=== PATIENT | female | born 1935 | race Caucasian/White ===

== ENCOUNTER → 2016-05-28 | Outpatient (CLI) | payer OTHER ==
[~2016-05-28] MED LIST: ASPI81TA28 PO; ATOR-24 PO; CINN500T PO; LEVO75TA PO; OXYB5TAB PO; PANT40TA PO
--- NOTE | 2016-05-28 13:04 | MAMMOGRAPHY REPORT ---
BILATERAL DIGITAL DIAGNOSTIC MAMMOGRAM TOMOSYNTHESIS WITH CAD: 05/28/2016 CLINICAL HISTORY: History of left breast cancer status post lumpectomy 2015 and radiation therapy. The patient reports a "rash" on her left breast for the last 2 months, she denies any palpable lumps or other complaints. TECHNIQUE: Breast tomosynthesis in addition to standard 2D mammography was performed. Current study was also evaluated with a Computer Aided Detection (CAD) system. Bilateral CC and MLO 2-D and jovany synthesis images and spot magnification left CC and ML views were obtained. COMPARISON: Comparison is made to exams dated: 01/20/2016 breast MRI, 07/16/2015 MRI biopsy, 07/07/19 16 ultrasound, 06/24/2015 breast MRI, 05/28/2015 ultrasound, and 05/28/2015 mammogram - [facility]. BREAST COMPOSITION: The tissue of both breasts is heterogeneously dense, which may obscure small ma sses. FINDINGS: There are stable post surgical changes in the left 12:00 breast from prior lumpectomy, in cluding architectural distortion as well as a fat density mass at the lumpectomy bed consistent with fat necrosis. Spot magnification views of the lumpectomy bed demonstrate 2 coarse benign calcifica tions at the lumpectomy bed, without suspicious masses or clusters of calcifications seen. The remainder of both breasts are stable compared to prior exams, without suspicious masses, calcifi cations, or areas of architectural distortion noted. Limited clinical exam of the left breast demonstrates an erythematous "rash" involving the left vivienne st including the lumpectomy scar, which has the appearance of multiple small superficial vessels. I t was discussed with the patient that it could potentially be related to radiation therapy, although I defer to her clinician for evaluation of the rash. IMPRESSION: ACR BI-RADS CATEGORY 2: BENIGN Stable post surgical changes in the left breast status post lumpectomy, without mammographic evidenc e of malignancy in either breast. There is no mammographic evidence of malignancy. Recommend bilat eral diagnostic tomosynthesis mammograms in one year. Also recommend clinical follow-up for the lef t breast "rash" reported by the patient. The patient has been verbally notified of the results. Approximately 10% of breast cancers are not detected with mammography. A negative mammographic repor t should not delay biopsy if a clinically suggestive mass is present. Madalyn Barragan M.D. ah/:05/28/2016 10:50:02 Research Laboratory Technician: Virgie Trujillo, [facility] letter sent: Normal 1/2 BI-RADS Code: ACR BI-RADS Category 2: Benign
== END | disposition home or self-care (01) ==
LOC: C.MAMM 10:14
PROVIDERS: ATTEND Surgery
DX: Z12.31 Encounter for screening mammogram for malignant neoplasm of breast (principal); Z85.3 Personal history of malignant neoplasm of breast

== ENCOUNTER → 2016-09-02 | Outpatient (CLI) | payer OTHER ==
[~2016-09-02] MED LIST changes: -CINN500T PO; -PANT40TA PO
--- NOTE | 2016-09-02 08:13 | DIAGNOSTIC IMAGING REPORT ---
(BARIUM SWALLOW) ESOPHAGUS CLINICAL HISTORY: Dysphasia. COMPARISON STUDY: 2007 FLUOROSCOPY TIME: 1.5 minutes. 26 fluoroscopic spot images were acquired.. FINDINGS: The patient swallowed effervescent granules and barium. There is no aspiration. There is a small sacral diverticulum. There is mildly disordered esophageal motility. There is a small hiatal hernia with distal esophageal ring. Reflux is visualized. The patient swallowed a one half inch barium tablet which freely passed the stomach. No destructive esophageal lesions were visualized. IMPRESSION: 1. Small Zenker's diverticulum 2. Small sliding hiatal hernia with distal esophageal ring 3. Disordered esophageal motility 4. Reflux 5. A 1/2 inch barium tablet freely passed into the stomach Electronically signed by: Loi Gonzalez M.D. 09/02/2016 8:11 AM Dictated Date/Time: 09/02/2016 8:10 AM
== END | disposition home or self-care (01) ==
LOC: C.RAD 07:18
PROVIDERS: ATTEND Physician Assistant
DX: K22.2 Esophageal obstruction (principal); R13.19 Other dysphagia; K44.9 Diaphragmatic hernia without obstruction or gangrene; K22.5 Diverticulum of esophagus, acquired

== ENCOUNTER → 2016-10-05 | Outpatient (CLI) | payer OTHER ==
[2015-10-07 13:49] VITALS: BP 130/71; PULSE 54
[~2016-10-05] MED LIST changes: -ATOR-24 PO; +CINN500T PO; +PANT40TA PO
[2016-10-05 13:46] VITALS: BP 146/77; PULSE 60; TEMP 36.8; O2SAT 95
--- NOTE | 2016-10-05 18:28 | Radiation Oncology Follow-Up ---
Radiation Oncology Follow-Up Date of Visit Oct 05, 2016. Reason For Visit Annual follow-up Radiation Completion Date 09/03/14 Diagnosis (1) Breast cancer Status: Resolved Onset Date: 04/18/2014 Stage: ll Permanent Comment: Self detected left breast mass Abnormal left breast mammogram and ultrasound 04/17/2014 Status post ultrasound-guided biopsy 04/18/2014 revealing invasive carcinoma Estrogen receptor negative, progesterone receptor negative, HER-2/rola negative Status post lumpectomy and sentinel lymph node biopsy 05/22/2014 Pathologic stage [id number] Status post completion of radiation therapy 09/03/2014 received 6120 cGy Last Edited By: Nicolette Whalen on Sep 19, 2014 10:44 History of Present Illness Ms. Pena is a 79-year-old female without a family history of breast cancer. She noted the presence of a left breast lump and was scheduled for bilateral mammograms and ultrasound. These were performed on 04/17/2014. These were compared to a prior study from October 2009. A dense mass with obscured margins was noted in the left breast at the 12:00 anterior position. Further evaluation with ultrasound was performed. Throughout the remainder of the visualized left breast were possible additional obscured masses in the upper outer quadrant. No abnormalities are noted in the right breast. An ultrasonic evaluation of the area of palpable concern at the 11:30 position of the left breast 2 cm from the nipple revealed a hypoechoic solid vascular mass measuring 1.2 x 1.0 x 1.9 cm. This correlates with the dense mammographic mass. In addition at the 12 o'clock position 2 cm from the nipple is a second hypoechoic solid-appearing mass with ill-defined borders measuring 1.0 x 0.7 cm. Within the axilla, 2 lymph nodes are seen measuring 0.7 cm without suspicious findings. This was felt to be highly suggestive of malignancy and a biopsy was recommended. On 04/18/2014 patient underwent an ultrasound-guided core biopsy the left breast at the 11 o'clock position. 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 No lymphovascular or perineural invasion was identified. Estrogen receptors were negative. Progesterone receptors were negative. HER-2/rola was negative by FISH analysis. Case: [id number]. Patient was seen by Dr. Marnie Skinner for surgical evaluation. Treatment options were discussed with the patient and she agreed to proceed with a breast conserving technique. The left breast examination revealed a 1.5 cm firm non-fixed irregular mass located at the 11:30 position 2 cm in the nipple. The second area of suspicion that was not biopsied was also not palpable. Patient underwent bilateral breast MRIs on 05/08/2014. In the right breast there was a 5 mm focus of faint enhancement in the right upper outer quadrant at the 9:30 middle depth. This focus demonstrated no suspicious kinetics. The remainder of the right breast demonstrates no suspicious masses or areas of abnormal enhancement. In the left breast a heterogeneously enhancing irregular mass was noted in the left upper inner quadrant at approximately 11:00, anterior depth at the site of the palpable mass marker. This measured 1.8 x 1.3 x 1.9 cm. The mass is consistent with the biopsy-proven malignancy. A small 4 mm enhancing focus is seen immediately superior and posterior to the dominant mass which may represent a tiny satellite lesion. The total extent of the abnormal enhancement measures 2.5 cm. There was no evidence of axillary adenopathy. The chest wall structures were negative. Extramammary soft tissues were unremarkable. After discussion with Dr. Skinner it was decided to do a 6 month follow-up of the right breast focus rather than an immediate biopsy. An MRI of the brain was performed on 2014 following the complaint of facial numbness. This showed no evidence of acute or subacute infarction, no evidence of intracranial masses and no evidence of hydrocephalus. Patient therefore went on to have a left breast lumpectomy and sentinel node biopsy on 05/22/2014.. 2 sentinel nodes were identified and both were benign. The lumpectomy specimen confirmed an infiltrating carcinoma grade 3 of 3 measuring 2.5 x 2.3 x 1.3 cm. The margins of the excision were negative with the closest margin 1 cm represented by the deep margin. 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 The margins on the DCIS was also negative. The staging was therefore a pT2 pN0(i-) ER negative CT negative HER-2/rola negative. Patient was seen by Dr. Crawford for discussion of the role of adjuvant therapy. He has ordered a staging workup that included a CT scan of the chest, abdomen and pelvis. These were performed on June 19 and results are pending. Once these results have been recorded he will review with the patient the potential role of adjuvant systemic therapy. While awaiting these results we were asked to see the patient in referral to discuss with her the potential role of radiation as adjuvant therapy. Adjuvant treatment was discussed with her. It was felt that she should have whole breast therapy. The patient was in agreement with undergoing therapy. Radiation was completed 09/03/2014 she received 6120 cGy Interim History She has noticed over the past several months changes to the skin of her left breast. The changes worse first detected in March 2016. She has noticed that there are red lines on the breast. These seem to have increased in the upper inner portion of the breast in the inframammary fold. There is no pain associated. She has no itching. She asked the radiologist, pattern marking supervisor, and family physician their opinion on the changes of her skin. She stated that they were not certain but it was likely it was due to her radiation therapy. She wondered if the changes had occurred because she was treated in the prone position. She is up-to-date on mammography. Allergies Coded Allergies: Honeydew Ariadne (Unverified Allergy, Severe, SHORTNESS OF BREATH, 09/30/16) will cause her to lose her voice Prednisone (Verified Allergy, Mild, RAISES BLOOD SUGAR AND CAUSES BLURRY VISION, 09/30/16) Uncoded Allergies: CHIPOTLE (Allergy, Unknown, SOB AND LOSES VOICE, 09/30/16) Home Medications Scheduled Aspirin (Aspirin Ec), 81 MG PO QAM Cinnamon (Cinnamon), 1 TAB PO QAM Levothyroxine Sodium (Synthroid), 75 MCG PO QAM Oxybutynin Chloride (Oxybutynin Chloride Er), 1 TAB PO QAM Pantoprazole (Protonix), 40 MG PO QAM Review of Systems Gastrointestinal: Symptoms: WNL GI Comments: Acid Reflux, diverticulitis showed on barium swallow Oral: Symptoms: No Problems Other Oral Symptoms: Trouble swallowing in general - having throat stretched Respiratory: Symptoms: WNL Other Respiratory: Coughs at times with the reflux Urinary: Symptoms: WNL Comments: nocturia times 2 Skin: Symptoms: No Problems Other Skin Symptoms: possible telangiectasis that developed in feb 2016 - dark small veins Breast: Right Upper Arm Measurement: 32.7 Right Mid Arm Measurement: 26.6 Right Wrist Measurement: 16.2 Left Upper Arm Measurement: 32.5 Left Mid Arm Measurement: 25.0 Left Wrist Measurement: 15.3 Arm Dominence: Right Patient Cosmetic Evaluation: Excellent Staff Cosmetic Evalaluation: Excellent Physical Exam Vital Signs Date Time Temp Pulse Resp B/P (MAP) Pulse Ox O2 Delivery O2 Flow Rate FiO2 10/05/16 13:46 36.8 60 16 146/77 95 Pain: Side: Bilateral Patient Pain Scale: 0 - 10 Initial Pain Intensity: 0.0 Fatigue: None General Appearance: no apparent distress Eyes: normal inspection, EOMI ENT: normal ENT inspection, hearing grossly normal Neck: no adenopathy, thyroid normal Respiratory/Chest: lungs clear, no respiratory distress, no accessory muscle use Breast: Breast examination reveals well-healed incisions of the left breast. She has the presence of telangiectasia. This is diffusely over the entire breast but is more prominent in the upper inner portion and in the inframammary fold. There are no masses or tenderness and no axillary adenopathy. She has no skin retractions or nipple changes. Using the Benjamin score cosmesis she has a fair outcome due to the telangiectasia. The right breast showed no masses or tenderness and no axillary adenopathy. Cardiovascular: regular rate, rhythm, no gallop, no murmur Extremities: no pedal edema Neurologic/Psychiatric: no motor/sensory deficits, alert, normal mood/affect Skin: warm/dry Additional Studies Patient: Lupe PENA [facility] Rec: [id number] Address1: [address] [place] [address] Address2: [facility] ID: [id number] Date: 1935 Sex: F Ref Phy: Nicolette Whalen PA-C Att Phy: Marnie Skinner MD Vandana Phy: Shen Rider M.D. Inter Phy: Madalyn Barragan MD [facility] Zip: [place] [address] SC: [facility] Report #: [id number] Vamp Creaser: INGA Diagnosis: ASYMPTOMATIC, HX OF BREAST CA Service Date: 05/28/16 MNE: [id number] Ordering Dr: Marnie Skinner MD CC: Marnie Skinner MD CONF: DICTATED BY: Madalyn Barragan MD MAMMOGRAPHY REPORT BILATERAL DIGITAL DIAGNOSTIC MAMMOGRAM TOMOSYNTHESIS WITH CAD: 05/28/2016 CLINICAL HISTORY: History of left breast cancer status post lumpectomy 2015 and radiation therapy. The patient reports a "rash" on her left breast for the last 2 months, she denies any palpable lumps or other complaints. TECHNIQUE: Breast tomosynthesis in addition to standard 2D mammography was performed. Current study was also evaluated with a Computer Aided Detection (CAD ) system. Bilateral CC and MLO 2-D and tomosynthesis images and spot magnification left CC and ML views were obtained. COMPARISON: Comparison is made to exams dated: 01/20/2016 breast MRI, 2015 MRI biopsy, 07/07/2015 ultrasound, 06/24/2015 breast MRI, 05/28/2015 ultrasound , and 05/28/2015 mammogram - [facility]. BREAST COMPOSITION: The tissue of both breasts is heterogeneously dense, which may obscure small masses. FINDINGS: There are stable post surgical changes in the left 12:00 breast from prior lumpectomy, including architectural distortion as well as a fat density mass at the lumpectomy bed consistent with fat necrosis. Spot magnification views of the lumpectomy bed demonstrate 2 coarse benign calcifications at the lumpectomy bed, without suspicious masses or clusters of calcifications seen. The remainder of both breasts are stable compared to prior exams, without suspicious masses, calcifications, or areas of architectural distortion noted. Limited clinical exam of the left breast demonstrates an erythematous "rash" involving the left breast including the lumpectomy scar, which has the appearance of multiple small superficial vessels. It was discussed with the patient that it could potentially be related to radiation therapy, although I defer to her clinician for evaluation of the rash. IMPRESSION: ACR BI-RADS CATEGORY 2: BENIGN Stable post surgical changes in the left breast status post lumpectomy, without mammographic evidence of malignancy in either breast. There is no mammographic evidence of malignancy. Recommend bilateral diagnostic tomosynthesis mammograms in one year. Also recommend clinical follow-up for the left breast "rash" reported by the patient. The patient has been verbally notified of the results. Approximately 10% of breast cancers are not detected with mammography. A negative mammographic report should not delay biopsy if a clinically suggestive mass is present. Madalyn Barragan M.D. ah/:05/28/2016 10:50:02 Temporary Administrative Assistant: Virgie Trujillo, [facility] letter sent: Normal 1/2 BI-RADS Code: ACR BI-RADS Category 2: Benign Dictated by: Madalyn Barragan MD Signed by: Madalyn Barragan MD Assessment & Plan Plan: Continue with annual mammography. We discussed the telangiectasia. I reviewed with her that this was caused by the radiation. This does usually occur 1-2 years following treatment. We reviewed photographs of other cases of telangiectasia. She felt comfortable knowing that this was not a sign of recurrent disease or underlying disease of the breast. She was made aware that there is no particular treatment for this issue. She is not concerned about this from a cosmetic standpoint. She'll continue follow-up with Dr. Skinner, Dr. Crawford, and Dr. Rider. We asked her to return to our office in 1 year. She may call if she has any questions or concerns in the interim. Total Time In Follow-Up I spent 25 minutes speaking to the patient performing examination. I spent 15 minutes reviewing information and complaining this note. Copy To Aubrey Linda M.D. Problem Qualifiers (1) Breast cancer: Breast location: upper inner quadrant of breast Estrogen receptor status: negative Patient sex: female Laterality: left Qualified Codes: C50.212 - Malignant neoplasm of upper-inner quadrant of left female breast; Z17.1 - Estrogen receptor negative status [ER-]
== END | disposition home or self-care (01) ==
LOC: C.ONC 13:35
PROVIDERS: ATTEND Physician Assistant Medical
DX: Z08 Encounter for follow-up examination after completed treatment for malignant neoplasm (principal); Z92.3 Personal history of irradiation; Z85.3 Personal history of malignant neoplasm of breast

== ENCOUNTER → 2016-10-11 | Day surgery (SDC) | payer OTHER ==
[2016-09-30 08:38] VITALS: BMI 29.0
[~2016-10-11] VITALS: Ht 154.9 cm; Wt 71.4 kg
[~2016-10-11] MED LIST changes: +LIDOCAINE HCL 2% 2 ML VIAL (20MG/ML) ONE; +PROPOFOL IV EMULSION 10 MG/ML 20 ML VIAL IV ONE; +SODIUM CHLORIDE 0.9% 500ML 500 ML IV ONE
--- NOTE | 2016-10-11 14:11 | Endo History and Physical ---
History & Physical Date of Service: Oct 11, 2016. Chief Complaint: Abnormal barium swallow GERD Referring Physician: Dr. Rider History of Present Illness 81 yo CF who presents for EGD secondary to abnormal barium swallow and GERD. Past Medical History Diabetes, Reflux, Cancer, High Cholesterol, Hypertension, Thyroid Disease Past Surgical History Hx Cardiac Surgery: No Hx Internal Defibrillator: No Hx Pacemaker: No Hx Abdominal Surgery: No Hx of Implantable Prosthesis: No Hx Post-Op Nausea and Vomiting: No Hx Cancer Surgery: Yes (LT BREAST LUMPECTOMY) Hx Thoracic Surgery: No Hx Orthopedic: No Hx Urinary Tract Surgery: No Family History None Social History Smoking Status: Never Smoker Hx Substance Use: No Hx Alcohol Use: No Allergies Coded Allergies: Honeydew Ariadne (Unverified Allergy, Severe, SHORTNESS OF BREATH, 09/30/16) will cause her to lose her voice Prednisone (Verified Allergy, Mild, RAISES BLOOD SUGAR AND CAUSES BLURRY VISION, 09/30/16) Uncoded Allergies: CHIPOTLE (Allergy, Unknown, SOB AND LOSES VOICE, 09/30/16) Current Medications Reported Home Medications Medications Dose Route/Sig Max Daily Dose Days Date Category Cinnamon 500 Mg Tab 1 Tab PO QAM 09/30/16 Reported Aspirin Ec (Aspirin) 81 Mg Tab 81 Mg PO QAM 09/30/16 Reported Protonix (Pantoprazole Sodium) 40 Mg Tab 40 Mg PO QAM 09/30/16 Reported Synthroid (Levothyroxine Sodium) 75 Mcg Tab 75 Mcg PO QAM 06/25/14 Reported Oxybutynin Chloride Er (Oxybutynin Chloride) 5 Mg Tab 1 Tab PO QAM 06/25/14 Reported Vital Signs Weight (Kilograms): 71.36 Height (Feet): 5 Height (Inches): 1.5 Physical Exam General Appearance: WD/WN, no apparent distress Respiratory/Chest: Auscultation: breath sounds normal Cardiovascular: Heart Auscultation: RRR Abdomen: Bowel Sounds: normal Inspection & Palpation: soft, non-distended, no tenderness, guarding & rebound Assessment and Plan Assessment: 81 yo CF who presents for EGD secondary to abnormal barium swallow and GERD. Plan: Proceed with EGD.
[2016-10-11 14:12] VITALS: Ht 154.9 cm; Wt 71.4 kg
--- NOTE | 2016-10-11 15:59 | Discharge Instructions ---
Endoscopy Patient Instructions Date / Procedure(s) Performed Oct 11, 2016. EGD Allergy Information Coded Allergies: Honeydew Ariadne (Unverified Allergy, Severe, SHORTNESS OF BREATH, 10/11/16) will cause her to lose her voice Prednisone (Verified Allergy, Mild, RAISES BLOOD SUGAR AND CAUSES BLURRY VISION, 10/11/16) Uncoded Allergies: CHIPOTLE (Allergy, Unknown, SOB AND LOSES VOICE, 09/30/16) Discharge Date / Findings Oct 11, 2016. Schatzki's Ring s/p dilation to 20mm Hiatal hernia Medication Instructions OK to resume all medications today as prescribed Reported Home Medications Medications Dose Route/Sig Max Daily Dose Days Date Category Cinnamon 500 Mg Tab 1 Tab PO QAM 09/30/16 Reported Aspirin Ec (Aspirin) 81 Mg Tab 81 Mg PO QAM 09/30/16 Reported Protonix (Pantoprazole Sodium) 40 Mg Tab 40 Mg PO QAM 09/30/16 Reported Synthroid (Levothyroxine Sodium) 75 Mcg Tab 75 Mcg PO QAM 06/25/14 Reported Oxybutynin Chloride Er (Oxybutynin Chloride) 5 Mg Tab 1 Tab PO QAM 06/25/14 Reported Provider Instructions Activity Restrictions - No exercising or heavy lifting for 24 hours. - Do not drink alcohol the day of the procedure. - Do not drive a car or operate machinery until the day after the procedure. - Do not make any important decisions or sign important papers in 24 hours after the procedure. Following Day: - Return to full activity which may include returning to work/school. Diet Start your diet with liquids and light foods (jello, soup, juice, toast). Then eat your usual diet if not nauseated. Treatment For Common After Affects For mild abdominal pain, bloating, or excessive gas: - Rest - Eat lightly - Lie on right side Follow-Up Information Follow-up with Dr. Rider as scheduled Anesthesia Information What You Should Know You have had a procedure that required some medicine to reduce anxiety and discomfort. This treatment is called moderate sedation. After receiving the treatment, you may be sleepy, but you will be able to breathe on your own. The effects of the treatment may last for several hours. Follow these instructions along with Activity/Diet recommendations noted above: * Do NOT do anything where dizziness or clumsiness would be dangerous. * Rest quietly at home today, then you can be up and about tomorrow. * Have a responsible person stay with you the rest of today. * You may have had an I.V. today. If so, you may take the dressing off later today. Recommendations Call your doctor if: * Trouble breathing * Continuous vomiting for more than 24 hours * Temperature above 101 degrees * Severe abdominal pain or bloating * Pain not relieved by pain medicine ordered * There is increased drainage or redness from any incision * A large amount of rectal bleeding greater than 2-3 tablespoons. (If you had a polyp/s removed or have hemorrhoids, a small amount of blood - from the rectum is to be expected.) * You have any unanswered questions or concerns. IN THE EVENT OF A SERIOUS EMERGENCY, GO TO THE NEAREST EMERGENCY ROOM Your discharge instructions were prepared by provider Montez De León. Patient Instructions Signature Page Lupe Pat Patient (or Guardian) Signature/Date: I have read and understand the instructions given to me by my caregivers. Caregiver/RN/Doctor Signature/Date: The above-named patient and/or guardian has received patient instructions on this date. + Original Patient Signature Page (only) stays with chart. Please make copy for patient.
--- NOTE | 2016-10-11 16:03 | Anesthesiology Progress Note ---
Anesthesia Post Op Note Date & Time Oct 11, 2016 at 16:03 Vital Signs Pain Intensity: 0 Vital Signs Past 12 Hours Date Time Temp Pulse Resp B/P (MAP) Pulse Ox O2 Delivery O2 Flow Rate FiO2 10/11/16 15:57 36.1 67 16 147/71 (96) 95 Room Air 10/11/16 14:06 36.5 64 16 212/99 (136) 97 Room Air Notes Mental Status: alert / awake / arousable, participated in evaluation Pt Amnestic to Procedure: Yes Nausea / Vomiting: adequately controlled Pain: adequately controlled Airway Patency, RR, SpO2: stable & adequate BP & HR: stable & adequate Hydration State: stable & adequate Anesthetic Complications: no major complications apparent
[2016-10-11 16:30] VITALS: BP 191/93; PULSE 58; O2SAT 97
--- NOTE | 2016-10-12 00:15 | GI REPORT ---
Procedure Date: 10/11/2016 3:41 PM Procedure: Upper GI endoscopy Indications: Dysphagia Medicines: Monitored Anesthesia Care Complications: No immediate complications. Estimated Blood Loss: Estimated blood loss: none. Procedure: Pre-Anesthesia Assessment: - Prior to the procedure, a History and Physical was performed, and patient medications and allergies were reviewed. The patient's tolerance of previous anesthesia was also reviewed. The risks and benefits of the procedure and the sedation options and risks were discussed with the patient. All questions were answered, and informed consent was obtained. Prior Anticoagulants: The patient has taken no previous anticoagulant or antiplatelet agents. ASA Grade Assessment: III - A patient with severe systemic disease. After reviewing the risks and benefits, the patient was deemed in satisfactory condition to undergo the procedure. After obtaining informed consent, the endoscope was passed under direct vision. Throughout the procedure, the patient's blood pressure, pulse, and oxygen saturations were monitored continuously. The scope was introduced through the mouth, and advanced to the second part of duodenum. The upper GI endoscopy was accomplished without difficulty. The patient tolerated the procedure well. Findings: A moderate Schatzki ring (acquired) was found at the gastroesophageal junction. A TTS dilator was passed through the scope. Dilation with an 18-19-20 mm balloon (to a maximum balloon size of 20 mm) dilator was performed. The dilation site was examined and showed moderate improvement in luminal narrowing. A small hiatus hernia was present. The examined duodenum was normal. Impression: - Moderate Schatzki ring. Dilated. - Small hiatus hernia. - Normal examined duodenum. - No specimens collected. Recommendation: - Resume previous diet. - Continue present medications. - Repeat the upper endoscopy PRN for retreatment. - Return to primary care physician as previously scheduled. Montez De León DO 10/11/2016 4:39:08 PM This report has been signed electronically. Note Initiated On: 10/11/2016 3:41 PM I attest to the content of the Intraoperative Record and orders documented therein, exceptions below
== END | disposition home or self-care (01) ==
LOC: C.GI 13:43
PROVIDERS: ATTEND Internal Medicine
DX: K22.2 Esophageal obstruction (principal); K21.9 Gastro-esophageal reflux disease without esophagitis; K44.9 Diaphragmatic hernia without obstruction or gangrene; I10 Essential (primary) hypertension; E11.9 Type 2 diabetes mellitus without complications; E78.00 Pure hypercholesterolemia, unspecified; E07.9 Disorder of thyroid, unspecified; Z79.82 Long term (current) use of aspirin

== ENCOUNTER → 2016-11-10 | Outpatient (CLI) | payer OTHER ==
[~2016-11-10] MED LIST changes: -LIDOCAINE HCL 2% 2 ML VIAL (20MG/ML) ONE; -PROPOFOL IV EMULSION 10 MG/ML 20 ML VIAL IV ONE; -SODIUM CHLORIDE 0.9% 500ML 500 ML IV ONE
--- NOTE | 2016-11-10 08:42 | DIAGNOSTIC IMAGING REPORT ---
(BARIUM SWALLOW) ESOPHAGUS CLINICAL HISTORY: 81 years-old Female presenting with dysphagia. TECHNIQUE: A standard air contrast barium esophagram is performed. Multiple spot images of the esophagus are acquired both upright and prone. COMPARISON: 09/02/2016. FINDINGS: The patient was able to ingest barium, and the barium pill without difficulty. No aspiration observed. A diverticulum noted in the region of the cervical esophagus at the level of C5-6 which projects posteriorly and superiorly, consistent with a Zenker's diverticulum. This is unchanged from prior. Evidence of tertiary contractions, suggesting dysmotility. No fixed obstruction or intrinsic or extrinsic mass lesion. Gastric folds project above the diaphragmatic hiatus consistent with small hiatal hernia. The gastroesophageal junction distended normally. Gastroesophageal reflux observed. Fluoroscopy dosage (mGy): Not available. Fluoroscopy time: 1.3 minutes. Number of fluoroscopic spot images: 23. IMPRESSION: 1. Unchanged findings of Zenker's diverticulum, small hiatal hernia, and reflux. 2. Tertiary contractions suggest dysmotility, likely presbyesophagus. Electronically signed by: Parveen Reddy M.D. 11/10/2016 8:40 AM Dictated Date/Time: 11/10/2016 8:36 AM
== END | disposition home or self-care (01) ==
LOC: C.RAD 08:12
PROVIDERS: ATTEND Physician Assistant
DX: R13.10 Dysphagia, unspecified (principal)

== ENCOUNTER → 2017-02-04 | Outpatient (CLI) | payer OTHER ==
[~2017-02-04] MED LIST changes: +GADAVIST IV PRN
--- NOTE | 2017-02-07 07:59 | MAMMOGRAPHY REPORT ---
BREAST MRI OF BOTH BREASTS : 02/04/2017 CLINICAL HISTORY: History of left breast cancer status post lumpectomy 2014 and radiation therapy. 1 2 month follow-up breast MRI for bilateral enhancing foci. The patient reports no current complaints . COMPARISON: Comparison is made to exams dated: 01/20/2016 breast MRI, 07/16/2015 MRI biopsy, 6 ultrasound, 06/24/2015 breast MRI, 05/28/2015 ultrasound, and 05/28/2015 mammogram - [facility]. Technique: The patient was placed prone in a dedicated breast imaging coil. Precontrast axial T1-jodee ghted, axial T2-weighted fat saturation, and axial T1-weighted fat saturation images were obtained. After the administration of 6.5 mL of Gadavist IV contrast, sequential T1-weighted fat saturation lulu ges were obtained. Subtraction images were obtained of the dynamic contrast enhanced sequences, and 3-D reformations were performed. The Chroma software was used for kinetic analysis. Findings: Right breast: There is minimal background parenchymal enhancement. No suspicious enhancing masses or areas of abnor mal non-mass enhancement are seen within the right breast. The small 4 mm enhancing focus within the right breast is stable dating back to the April 2014 exam and is considered benign given the morphol ogy and long-term stability (series 501 image 78). Left breast: There is minimal background parenchymal enhancement. Again noted are postsurgical frederick es in the left superior breast from prior lumpectomy. There are no suspicious enhancing masses or ar eas of abnormal enhancement within the left breast. The small 3 mm enhancing focus in the left centr al breast middle depth is stable dating back to at least the December 2014 exam, and demonstrates a b enign type persistent kinetic pattern (series 501 image 81); the focus is considered benign given the morphology and long-term stability. A circumscribed benign-appearing 6 mm T2 hyperintense enhancing mass is seen within the skin of the left lower outer breast, not significantly changed compared to M 2014 exam and is therefore benign and likely represents an epidermal inclusion/sebaceous cyst (s eries 501 image 106). There is no evidence of axillary adenopathy. The chest wall structures are negative. Extramammary s oft tissues are unremarkable. IMPRESSION: ACR BI-RADS CATEGORY 2: BENIGN No MRI evidence of malignancy in either breast. Bilateral enhancing foci are stable compared to prio r exams, and are considered benign given the benign morphology and long-term stability. Recommend bi lateral diagnostic tomosynthesis mammograms May 2017, as recommended on the prior diagnostic mammog madie report. Madalyn Barragan M.D. ah/:02/05/2017 15:24:15 Security Associate: ground equipment mechanic, [facility] letter sent: Normal 1/2 BI-RADS Code: ACR BI-RADS Category 2: Benign
== END | disposition home or self-care (01) ==
LOC: C.MRI 06:28
PROVIDERS: ATTEND Surgery
DX: R92.8 Other abnormal and inconclusive findings on diagnostic imaging of breast (principal); Z85.3 Personal history of malignant neoplasm of breast

== ENCOUNTER → 2017-05-31 | Outpatient (CLI) | payer OTHER ==
[~2017-05-31] MED LIST changes: -GADAVIST IV PRN
--- NOTE | 2017-05-31 12:52 | MAMMOGRAPHY REPORT ---
BILATERAL DIGITAL DIAGNOSTIC MAMMOGRAM TOMOSYNTHESIS WITH CAD: 05/31/2017 CLINICAL HISTORY: 82-year-old woman presents for annual evaluation of both breasts. She has a person al history of left breast cancer status post lumpectomy and radiation therapy, performed in 2014. TECHNIQUE: Bilateral breast tomosynthesis in addition to standard 2D mammography was performed. Curre nt study was also evaluated with a Computer Aided Detection (CAD) system. COMPARISON: Comparison is made to exams dated: 02/04/2017 breast MRI, 05/28/2016 mammogram, 01/20/2016 breast MRI, 07/16/2015 MRI biopsy, 07/07/2015 ultrasound, and 06/24/2015 breast MRI - [facility]. BREAST COMPOSITION: The tissue of both breasts is heterogeneously dense, which may obscure small mas ses. FINDINGS: A linear scar marker overlies the 12:00 to 1:00 left breast, denoting the skin surgical sca r from prior lumpectomy. There is expected architectural distortion in the 12:00 to 1:00 middle one third of the left breast from the prior surgery. No obvious new masses, asymmetries or unexpected di stortion is identified. There are scattered benign-appearing microcalcifications. Moderate vascular calcification in the breasts. No suspicious mass, architectural distortion or cluster of suspicious microcalcifications is seen. IMPRESSION: ACR BI-RADS CATEGORY 2: BENIGN Stable bilateral mammograms, without mammographic evidence of malignancy. Recommend bilateral screen ing mammography in 1 year and would recommend remaining a diagnostic patient given the dense breasts and personal history of left breast cancer, in case any additional mammographic views and/or ultrasou nd would be needed. Also consider additional annual screening with breast MRI. Approximately 10% of breast cancers are not detected with mammography. A negative mammographic report should not delay biopsy if a clinically suggestive mass is present. Silva Rubio M.D. ay/:05/31/2017 12:16:49 Pleating Machine Operator: Virgie Trujillo, [facility] letter sent: Normal 1/2 BI-RADS Code: ACR BI-RADS Category 2: Benign
== END | disposition home or self-care (01) ==
LOC: C.MAMM 08:45
PROVIDERS: ATTEND Physician Assistant Medical
DX: Z85.3 Personal history of malignant neoplasm of breast (principal)

== ENCOUNTER → 2017-10-06 | Outpatient (CLI) | payer OTHER ==
[2015-10-07 13:49] VITALS: BP 130/71; PULSE 54
[~2017-10-06] MED LIST changes: +ATOR-24 PO; +[UNRECOGNIZED DRUG - CODE] PO
[2017-10-06 13:15] VITALS: BP 127/70; PULSE 62; TEMP 36.7; O2SAT 97
--- NOTE | 2017-10-06 14:16 | Radiation Oncology Follow-Up ---
Radiation Oncology Follow-Up Date of Visit Oct 06, 2017. Reason For Visit Annual follow-up Radiation Completion Date 09/03/14 Diagnosis (1) Breast cancer Status: Resolved Onset Date: 04/18/2014 Stage: ll Permanent Comment: Self detected left breast mass Abnormal left breast mammogram and ultrasound 04/17/2014 Status post ultrasound-guided biopsy 04/18/2014 revealing invasive carcinoma Estrogen receptor negative, progesterone receptor negative, HER-2/rola negative Status post lumpectomy and sentinel lymph node biopsy 05/22/2014 Pathologic stage [id number] Status post completion of radiation therapy 09/03/2014 received 6120 cGy Last Edited By: Nicolette Whalen on Sep 19, 2014 10:44 History of Present Illness Ms. Pena is without a family history of breast cancer. She noted the presence of a left breast lump and was scheduled for bilateral mammograms and ultrasound. These were performed on 04/17/2014. These were compared to a prior study from October 2009. A dense mass with obscured margins was noted in the left breast at the 12:00 anterior position. Further evaluation with ultrasound was performed. Throughout the remainder of the visualized left breast were possible additional obscured masses in the upper outer quadrant. No abnormalities are noted in the right breast. An ultrasonic evaluation of the area of palpable concern at the 11:30 position of the left breast 2 cm from the nipple revealed a hypoechoic solid vascular mass measuring 1.2 x 1.0 x 1.9 cm. This correlates with the dense mammographic mass. In addition at the 12 o'clock position 2 cm from the nipple is a second hypoechoic solid-appearing mass with ill-defined borders measuring 1.0 x 0.7 cm. Within the axilla, 2 lymph nodes are seen measuring 0.7 cm without suspicious findings. This was felt to be highly suggestive of malignancy and a biopsy was recommended. On 04/18/2014 patient underwent an ultrasound-guided core biopsy the left breast at the 11 o'clock position. 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 No lymphovascular or perineural invasion was identified. Estrogen receptors were negative. Progesterone receptors were negative. HER-2/rola was negative by FISH analysis. Case: [id number]. Patient was seen by Dr. Marnie Skinner for surgical evaluation. Treatment options were discussed with the patient and she agreed to proceed with a breast conserving technique. The left breast examination revealed a 1.5 cm firm non-fixed irregular mass located at the 11:30 position 2 cm in the nipple. The second area of suspicion that was not biopsied was also not palpable. Patient underwent bilateral breast MRIs on 05/08/2014. In the right breast there was a 5 mm focus of faint enhancement in the right upper outer quadrant at the 9:30 middle depth. This focus demonstrated no suspicious kinetics. The remainder of the right breast demonstrates no suspicious masses or areas of abnormal enhancement. In the left breast a heterogeneously enhancing irregular mass was noted in the left upper inner quadrant at approximately 11:00, anterior depth at the site of the palpable mass marker. This measured 1.8 x 1.3 x 1.9 cm. The mass is consistent with the biopsy-proven malignancy. A small 4 mm enhancing focus is seen immediately superior and posterior to the dominant mass which may represent a tiny satellite lesion. The total extent of the abnormal enhancement measures 2.5 cm. There was no evidence of axillary adenopathy. The chest wall structures were negative. Extramammary soft tissues were unremarkable. After discussion with Dr. Skinner it was decided to do a 6 month follow-up of the right breast focus rather than an immediate biopsy. An MRI of the brain was performed on 2014 following the complaint of facial numbness. This showed no evidence of acute or subacute infarction, no evidence of intracranial masses and no evidence of hydrocephalus. Patient therefore went on to have a left breast lumpectomy and sentinel node biopsy on 05/22/2014.. 2 sentinel nodes were identified and both were benign. The lumpectomy specimen confirmed an infiltrating carcinoma grade 3 of 3 measuring 2.5 x 2.3 x 1.3 cm. The margins of the excision were negative with the closest margin 1 cm represented by the deep margin. 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 The margins on the DCIS was also negative. The staging was therefore a pT2 pN0(i-) ER negative DC negative HER-2/rola negative. Patient was seen by Dr. Crawford for discussion of the role of adjuvant therapy. He has ordered a staging workup that included a CT scan of the chest, abdomen and pelvis. These were performed on June 19 and results are pending. Once these results have been recorded he will review with the patient the potential role of adjuvant systemic therapy. While awaiting these results we were asked to see the patient in referral to discuss with her the potential role of radiation as adjuvant therapy. Adjuvant treatment was discussed with her. It was felt that she should have whole breast therapy. The patient was in agreement with undergoing therapy. Radiation was completed 09/03/2014 she received 6120 cGy Interim History She has been doing well over this past year. She denies any changes to her breast. She is noted no masses or tenderness and no change of the axilla. She has had no swelling of her arm. She is up-to-date on mammography. She does have post radiation changes of telangiectasia. She feels these are unchanged from last year. She is not cosmetically concerned about this outcome. She did have a recheck mammogram May 31, 2017. She discussed follow-up MRIs with medical oncology and her breast surgeon. She was not inclined to have annual MRIs. She is very comfortable with mammography only. Allergies Coded Allergies: Honeydew Ariadne (Unverified Allergy, Severe, SHORTNESS OF BREATH, 10/06/17) will cause her to lose her voice Prednisone (Verified Allergy, Mild, RAISES BLOOD SUGAR AND CAUSES BLURRY VISION, 10/06/17) Uncoded Allergies: CHIPOTLE (Allergy, Unknown, SOB AND LOSES VOICE, 09/30/16) Home Medications Scheduled Aspirin (Aspirin Ec), 81 MG PO QAM Atorvastatin (Lipitor), 1 TAB PO HS Cinnamon (Cinnamon), 1 TAB PO QAM Levothyroxine Sodium (Synthroid), 75 MCG PO QAM Metformin Hcl (Riomet), 1 TSP PO BID Oxybutynin Chloride (Oxybutynin Chloride Er), 1 TAB PO QAM Review of Systems Gastrointestinal: Symptoms: WNL GI Comments: Acid Reflux, diverticulitis showed on barium swallow Oral: Symptoms: No Problems Other Oral Symptoms: Trouble swallowing in general - having throat stretched Respiratory: Symptoms: WNL Other Respiratory: Coughs at times with the reflux Urinary: Symptoms: WNL Comments: nocturia times 2 Skin: Symptoms: No Problems Other Skin Symptoms: possible telangiectasis that developed in feb 2016 - dark small veins Breast: Right Upper Arm Measurement: 30.2 Right Mid Arm Measurement: 24.5 Right Wrist Measurement: 15.5 Left Upper Arm Measurement: 29.5 Left Mid Arm Measurement: 23.8 Left Wrist Measurement: 14.6 Arm Dominence: Right Patient Cosmetic Evaluation: Good Staff Cosmetic Evalaluation: Excellent Physical Exam Vital Signs Date Time Temp Pulse Resp B/P (MAP) Pulse Ox O2 Delivery O2 Flow Rate FiO2 10/06/17 13:15 36.7 62 16 127/70 97 Fatigue: None General Appearance: no apparent distress Eyes: normal inspection, EOMI ENT: normal ENT inspection, hearing grossly normal Neck: no adenopathy, thyroid normal Respiratory/Chest: lungs clear, no respiratory distress, no accessory muscle use Breast: She has well-healed incisions of the left breast. There are no masses or tenderness and no axillary adenopathy. She does have fibrous changes in the upper outer quadrant. There is generalized telangiectasia over the portal of treatment. Using the Dilworth score cosmesis she has a fair outcome. The right breast showed no masses or tenderness and no axillary adenopathy. She does have some fibrocystic changes in the central upper portion of the breast. Cardiovascular: regular rate, rhythm, no gallop, no murmur Extremities: no pedal edema Neurologic/Psychiatric: no motor/sensory deficits, alert, normal mood/affect Skin: warm/dry Pain Management Patient Reports Pain: No Side: Bilateral Pain Location: None Patient Preferred Pain Scale: 0 - 10 Initial Pain Intensity: 0.0 Pain Management Plan She denies pain therefore requires no pain management. Laboratory Laboratory Results: not applicable Pathology Pathology Results: were reviewed, and pertinent findings noted in HPI Imaging Imaging Studies: were reviewed, and pertinent findings noted below Imaging Comments Patient: Lupe PENA [facility] Rec: [id number] Address1: [address] [place] [address] Address2: [facility] ID: [id number] Date: 1935 Sex: F Ref Phy: Nicolette Whalen PA-C Att Phy: Nicolette Whalen PA-C Vandana Phy: Shen Rider M.D. Inter Phy: Silva Rubio MD [facility] Zip: [place] [id number] SC: [id number] Report #: [id number] Oral And Maxillofacial Surgery Resident: INGA Diagnosis: ASYMPTOMATIC/HX BREAST CA Service Date: 05/31/17 MNE: [id number] Ordering Dr: Nicolette Whalen PA-C CC: Nicolette Whalen PA-C CONF: DICTATED BY: Silva Rubio MD MAMMOGRAPHY REPORT BILATERAL DIGITAL DIAGNOSTIC MAMMOGRAM TOMOSYNTHESIS WITH CAD: 05/31/2017 CLINICAL HISTORY: 82-year-old woman presents for annual evaluation of both breasts. She has a personal history of left breast cancer status post lumpectomy and radiation therapy, performed in 2014. TECHNIQUE: Bilateral breast tomosynthesis in addition to standard 2D mammography was performed. Current study was also evaluated with a Computer Aided Detection (CAD) system. COMPARISON: Comparison is made to exams dated: 02/04/2017 breast MRI, 05/28/2016 mammogram, 01/20/2016 breast MRI, 07/16/2015 MRI biopsy, 07/07/2015 ultrasound, and 06/24/2015 breast MRI - [facility]. BREAST COMPOSITION: The tissue of both breasts is heterogeneously dense, which may obscure small masses. FINDINGS: A linear scar marker overlies the 12:00 to 1:00 left breast, denoting the skin surgical scar from prior lumpectomy. There is expected architectural distortion in the 12:00 to 1:00 middle one third of the left breast from the prior surgery. No obvious new masses, asymmetries or unexpected distortion is identified. There are scattered benign-appearing microcalcifications. Moderate vascular calcification in the breasts. No suspicious mass, architectural distortion or cluster of suspicious microcalcifications is seen. IMPRESSION: ACR BI-RADS CATEGORY 2: BENIGN Stable bilateral mammograms, without mammographic evidence of malignancy. Recommend bilateral screening mammography in 1 year and would recommend remaining a diagnostic patient given the dense breasts and personal history of left breast cancer, in case any additional mammographic views and/or ultrasound would be needed. Also consider additional annual screening with breast MRI. Approximately 10% of breast cancers are not detected with mammography. A negative mammographic report should not delay biopsy if a clinically suggestive mass is present. Silva Rubio M.D. ay/:05/31/2017 12:16:49 Cardiac/Vascular Sonographer: Virgie Trujillo, [facility] letter sent: Normal 1/2 BI-RADS Code: ACR BI-RADS Category 2: Benign Dictated by: Silva Rubio MD Signed by: Silva Rubio MD Assessment & Plan Plan: Continue regular follow-up with her primary care provider, medical oncologist, and breast surgeon. She is not concerned about the cosmetic outcome and telangiectasia. She is comfortable with mammography alone and not having annual MRIs. She also stated that the MRI was quite difficult and uncomfortable for her to complete. We asked her to return to our office in 1 year. She may call if she has any questions or concerns in the interim. Total Time In Follow-Up I spent 20 minutes speaking to the patient in performing examination. I spent 15 minutes reviewing information and completing this note. Copy To Marnie Skinner MD; Lydia Poole PA-C; Shen Rider M.D. Problem Qualifiers (1) Breast cancer: Breast location: lower inner quadrant of breast Estrogen receptor status: negative Patient sex: female Laterality: left Qualified Codes: C50.312 - Malignant neoplasm of lower-inner quadrant of left female breast; Z17.1 - Estrogen receptor negative status [ER-]
== END | disposition home or self-care (01) ==
LOC: C.ONC 12:41
PROVIDERS: ATTEND Physician Assistant Medical
DX: Z08 Encounter for follow-up examination after completed treatment for malignant neoplasm (principal); Z92.3 Personal history of irradiation; Z85.3 Personal history of malignant neoplasm of breast

== ENCOUNTER 2018-07-31 18:48 | Inpatient (IN) ==
[2018-07-31] MEDS ORDERED: SODIUM CHLORIDE 0.9% 1000ML 1,000 ML IV SCH (19:15)
[2018-07-31 19:19] LABS: Basophils # (auto) 0.03 K/uL (0-0.2); Basophils % (auto) 0.5 %; Eosinophils # (auto) 0.14 K/uL (0-0.5); Eosinophils % (auto) 2.1 %; Hematocrit (blood only) 32.4 % (37-47); Immature Granulocytes # (auto) 0.02 K/uL (0.00-0.02); Immature Granulocytes % (auto) 0.3 %; Lymphocytes # (auto) 2.83 K/uL (1.2-3.4); Lymphocytes % (auto) 43.3 %; Mean Corpuscular Volume 82.4 fL (80-100); Monocytes # (auto) 0.52 K/uL (0.11-0.59); Neutrophils % (auto) 45.8 %; Platelet Count 264 K/uL (130-400); RDW Coefficient of Variation 13.3 % (11.5-14.5); RDW Standard Deviation 40.7 fL (36.4-46.3); Red Blood Count 3.93 M/uL (4.2-5.4); White Blood Count 6.54 K/uL (4.8-10.8)
[2018-07-31 19:22] LABS: iSTAT Creatinine 0.8 mg/dl (0.6-1.3); iSTAT Hemoglobin 11.2 g/dl (12.0-16.0); iSTAT Ionized Calcium 1.18 mmol/l (1.12-1.32); iSTAT Potassium 4.4 mEq/L (3.3-5.0)
--- NOTE | 2018-07-31 19:28 | XRay Report ---
XR chest 1V portable HISTORY: 83 years-old Female stroke like symptoms acute strokelike symptoms COMPARISON: Chest radiograph 07/30/2018 TECHNIQUE: Portable AP view of the chest FINDINGS: Cardiac mediastinal and hilar silhouettes are within normal limits. Calcification of the thoracic arc h. Mild hyperinflation without pneumothorax, pleural effusion, focal airspace consolidation or overt pulmonary edema. Degenerative changes of the shoulders and spine. IMPRESSION: No acute process. The above report was generated using voice recognition software. It may contain grammatical, syntax o r spelling errors. Electronically signed by: Rommel Arango M.D. 07/31/2018 7:26 PM
[2018-07-31] MEDS ORDERED: OPTIRAY 320 125ml IV PRN (19:33)
[2018-07-31 19:39] LABS: Alanine Aminotransferase 26 U/L (12-78); Albumin Level 3.4 gm/dl (3.4-5.0); Aspartate Aminotransferase 23 U/L (15-37); Blood Urea Nitrogen 12 mg/dl (7-18); Calcium 9.4 mg/dl (8.5-10.1); Carbon Dioxide 29 mmol/L (21-32); Chloride 102 mmol/L (98-107); Creatinine Clr Calc Pharmacy 35.3 ml/min; Est GFR (African American) 67.6; Est GFR (Non-African American) 58.3; Glucose 196 mg/dl (70-99); Magnesium 1.6 mg/dl (1.8-2.4); Potassium 4.4 mmol/L (3.5-5.1); Sodium 139 mmol/L (136-145)
[2018-07-31 19:42] LABS: INR 1.1 (0.9-1.1); Partial Thromboplastin Time 27.6 Seconds (21.0-31.0)
[2018-07-31 19:44] LABS: Albumin Globulin Ratio 0.8 (0.9-2); Alkaline Phosphatase 88 U/L (45-117); Bilirubin,Total 0.4 mg/dl (0.2-1); Globulin 4.1 gm/dl (2.5-4.0); Total Protein 7.5 gm/dl (6.4-8.2); Troponin I < 0.015 ng/ml (0-0.045)
--- NOTE | 2018-07-31 19:46 | CT Scan Report ---
CT head/brain wo con CLINICAL HISTORY: 83 years-old Female with Stroke evaluation . Acute strokelike symptoms TECHNIQUE: Multiple axial CT images of the head were obtained without contrast. A dose lowering tech nique was utilized adhering to the principles of ALARA. COMPARISON: CT head 07/30/2018. FINDINGS: No acute intracranial hemorrhage, midline shift, intracranial mass, hydrocephalus, or abnormal extra- axial collection. Decreased attenuation of the right frontal parietal and likely also temporal lobes with blurring of the browne-white interface, for example image 16 series 2. Mild age-related involution al changes. Patchy white matter hypodensities are suggestive of chronic microvascular ischemic diseas e. Senescent calcifications of the lentiform nuclei. The calvarium is intact. The paranasal sinuses, mastoid air cells, and middle ear cavities are clear . IMPRESSION: 1. No acute intracranial hemorrhage or midline shift. 2. Decreased attenuation of the right MCA distribution with subtle blurring of the browne-white interfa ce is suspicious for acute infarction. 3. Age-related involutional changes with chronic microvascular ischemic disease. Findings were discussed with Dr. Cabezas on 07/31/2018 at 7:40 PM The above report was generated using voice recognition software. It may contain grammatical, syntax o r spelling errors. Electronically signed by: Rommel Arango M.D. 07/31/2018 7:44 PM
--- NOTE | 2018-07-31 19:52 | CT Scan Report ---
HEAD & NECK CTA HISTORY: left facial droop TECHNIQUE: Multiaxial CT images of the head were performed following the intravenous administration o f contrast to evaluate the major cerebral vessels. Multiaxial CT images of the neck were also perform ed following the intravenous administration of contrast to evaluate the major cervical vessels. Maxim um intensity projection images were also obtained. A dose lowering technique was utilized adhering to the principles of ALARA. COMPARISON: Head CT 07/30/2018. Head and neck CTA 12/16/2017. FINDINGS: The major dural venous sinuses appear patent. Hypoplastic distal left vertebral, unchanged. The domin ant right vertebral artery appears patent distally. The basilar artery and right MARINE BIOLOGIST are widely pain. Mild focal stenosis at the left P1 segment, unchanged. Mild to moderate multifocal narrowing within the bilateral carotid siphons. The bilateral ACAs are widely patent. Focal moderate stenosis of appro ximately 50% within the mid left M1 segment. The remaining distal left MCA branches are patent. Focal abrupt cut off at the distal right M1 segment near the MCA bifurcation. There is reconstitution of flow of the right M2 branches, however, this appears diminished compared to the prior study. Loss of the browne-white junction within the right MCA territory consistent with an acute infarct. The aortic arch and proximal great vessels are widely patent. No significant stenosis, occlusion, o r dissection within the bilateral common carotid artery or internal carotid arteries. There is a asim nant right vertebral artery which is widely patent. Hypoplastic left vertebral artery which is occlud ed proximally. There is reconstitution of the left vertebral artery at the C6 level. This remains unc hanged. IMPRESSION: 1. Focal vascular cut off at the distal right M1 segment near the MCA bifurcation with an associated right MCA territory infarct. 2. No significant stenosis, occlusion, or dissection within the bilateral common carotid or internal carotid arteries. 3. Moderate focal stenosis within the mid left M1 segment. 4. Mild to moderate multifocal narrowing within the bilateral carotid siphons. 5. 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 However, flow is rec onstituted at the C6 level. This remains unchanged. Electronically signed by: Gerald Gonzales M.D. 07/31/2018 7:51 PM
[2018-07-31] MEDS ORDERED: MAGNESIUM SULFATE / D5W 1 GM/100 ML BAG IV ONE (20:15)
[2018-07-31] MEDS ORDERED: ASPIRIN CHEW 324 MG PO STA (20:21)
[2018-07-31 20:46] LABS: Appearance Urine Clear (Clear); Bilirubin Urine Negative (Negative); Blood Urine Negative (Negative); Color Urine Yellow; Glucose Urine UA Negative (Negative); Ketones Urine Negative (Negative); Leukocyte Esterase Urine Negative (Negative); Nitrite Urine Negative (Negative); Protein Urine Negative (Negative); Specific Gravity Urine 1.045 (1.000-1.030); Urobilinogen Urine Negative (Negative); pH Urine 6.5 (4.5-7.5)
[2018-07-31] MEDS ORDERED: methylPREDNISolone 500 MG in DEXTROSE 5% 250 ML IV STA (20:53)
--- NOTE | 2018-07-31 23:48 | History & Physical Report ---
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 [facility] transfer currently precluded by ambulance service unavailability. Hypertension, elevated secondary to intracranial process hyperlipidemia on statin Rx breast cancer left status post surgery, radiation DM2 on oral meds, well controlled as of recent outpatient hemoglobin A1c of 6 last April 2018. New onset anemia, no occult GI bleed Medical telemetry Transfer to [facility] once ambulance service available. Patient has been kindly accepted for transfer by [facility] neurologist, Dr. Parsons. Neurochecks Permissive hypertension while on the floor. Aspirin, Plavix antiplatelet therapy for now. Solu-Medrol 500 mg IV every 12 hours for possible CLIENT SERVICE MANAGER vasculitis as per discussion with [facility] neurologist. Anemia work-up with morning labs Basal insulin, ISS BG goal 1 40-180 DVT prophylaxis. Lovenox subcu Full code Patient's requesting updates from providers. Mr. London Pat, contact #[phone]. History of Present Illness Chief Complaint: Slurred speech, left-sided facial droop Primary Care Provider: Shen Rider MD History obtained from patient, family, and records. Medical history significant for hypertension, hyperlipidemia, history TIA, breast cancer left status post surgery, radiation, DM2 on oral meds. Recent confinement November 2017 for transient right-sided weakness, dysarthria symptoms attributed to TIA. Patient discharged on Plavix. 10 days ago, patient noted achy headache symptoms, dizziness symptoms described as lightheadedness. Symptoms attributed to dehydration. Patient was seen at the ER yesterday for persistent weakness symptoms. Blood pressure noted to be elevated. CT head no acute pathology. Patient discharged home from the ER. Around 2 PM today, patient noted by to have slurred speech symptoms, left-sided facial droop. Patient denies headache, chest pain, S OB, abdominal pain, black, bloody stools. Patient directed by PCP to [facility] ER. Stroke alert called upon arrival at the ER. Aspirin given at the ER. CTA showed possible CVA on right MCA territory, multiple vessels with changes noted. TPA not recommended by [facility] telemetry stroke neurologist. IV Solu-Medrol given for possible vasculitis. Patient accepted for transfer by from the emergency room. Unfortunately, urgent transfer precluded by ambulance in availability. Hospitalist service requested to admit patient to the floor until ambulance services available in a.m. Some improvement in slurred speech, left-sided facial weakness noted by family after Solu-Medrol administered. 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 Allergies Allergy/AdvReac Type Severity Reaction Status Date / Time melon Allergy Severe Difficulty Verified 07/31/18 23:49 Breathing prednisone Allergy Mild RAISES Verified 07/31/18 23:49 BLOOD SUGAR AND CAUSES BLURRY VISION Home Medications Home Medications Medication Instructions Recorded Confirmed Type levothyroxine 75 mcg PO QAM 12/16/17 07/31/18 History oxybutynin chloride 5 mg PO QAM 12/16/17 07/31/18 History multivitamin 1 tab PO QAM 12/19/17 07/31/18 History atorvastatin 80 mg PO QAM 07/30/18 07/31/18 History clopidogrel 75 mg PO QAM 07/30/18 07/31/18 History lisinopril 5 mg PO QAM 07/30/18 07/31/18 History magnesium oxide 400 mg PO BID #10 cap 07/30/18 07/31/18 Rx metformin 500 mg PO BID 07/30/18 07/31/18 History Past Med/Surg History Social History Preferred Language: Indonesian Communication Ability: Effective System Operation Superintendent Required: No Beliefs That Will Affect Care: None Current Living Situation: Spouse Feels Safe at Home: Yes Smoking Status: Never smoker Second Hand Exposure: No Hx Alcohol Use: No Hx Substance Use: No Review of Systems Review of Systems: As per HPI, all 10 systems reviewed, all other ROS negative Physical Exam Physical Exam: GENERAL: Comfortable, looks younger for stated age, pleasant, mild dysarthria, no respiratory distress SKIN: Pallor , warm HEENT: Bespectacled, pale palpebral conjunctivae, no ptosis, subtle left nasolabial fold flattening, dry buccal mucosa NECK : Supple, no tenderness CHEST : CTA, no tenderness HEART : Bradycardic , no obvious murmurs ABDOMEN: Some distention, nontender RECTAL : Intact sphincter, yellow stool (FOBT negative) EXTREMITIES : No LE swelling/tenderness, no other conspicuous deformities noted NEUROLOGIC : Coherent, mild dysarthria, subtle left nasolabial fold flattening, no other gross focality Results & Data Vital Signs (Past 12 Hours) Vital Signs Temp Pulse Pulse Resp BP BP Pulse Ox 07/31/18 23:01 57 L 19 185/87 H 07/31/18 22:31 54 L 22 174/81 H 07/31/18 22:02 52 L 17 187/78 H 07/31/18 21:31 61 20 159/77 H 07/31/18 21:12 79 20 159/76 H 96 07/31/18 20:46 60 18 107/80 99 07/31/18 20:06 62 18 144/83 H 96 07/31/18 18:50 36.8 C 101 H 17 166/79 H 98 Laboratory Results Laboratory Results WBC 6.54 K/uL (4.8-10.8) 07/31/18 19:07 RBC 3.93 M/uL (4.2-5.4) L 07/31/18 19:07 Hgb 11.0 g/dL (12.0-16.0) L 07/31/18 19:07 POC Hgb 11.2 g/dl (12.0-16.0) L 07/31/18 19:07 Hct 32.4 % (37-47) L 07/31/18 19:07 POC Hct 33 % (37-47) L 07/31/18 19:07 MCV 82.4 fL (80-100) 07/31/18 19:07 MCH 28.0 pg (25-34) 07/31/18 19:07 MCHC 34.0 g/dL (32-36) 07/31/18 19:07 RDW Std Deviation 40.7 fL (36.4-46.3) 07/31/18 19:07 RDW Coeff of Tammie 13.3 % (11.5-14.5) 07/31/18 19:07 Plt Count 264 K/uL (130-400) 07/31/18 19:07 MPV 10.0 fL (7.4-10.4) 07/31/18 19:07 Immature Gran % (Auto) 0.3 % 07/31/18 19:07 Neut % (Auto) 45.8 % 07/31/18 19:07 Lymph % (Auto) 43.3 % 07/31/18 19:07 [place] % (Auto) 8.0 % 07/31/18 19:07 Eos % (Auto) 2.1 % 07/31/18 19:07 Baso % (Auto) 0.5 % 07/31/18 19:07 Immature Gran # (Auto) 0.02 K/uL (0.00-0.02) 07/31/18 19:07 Neut # (Auto) 3.00 K/uL (1.4-6.5) 07/31/18 19:07 Lymph # (Auto) 2.83 K/uL (1.2-3.4) 07/31/18 19:07 [place] # (Auto) 0.52 K/uL (0.11-0.59) 07/31/18 19:07 Eos # (Auto) 0.14 K/uL (0-0.5) 07/31/18 19:07 Baso # (Auto) 0.03 K/uL (0-0.2) 07/31/18 19:07 PT 11.0 Seconds (9.0-12.0) 07/31/18 19:07 INR 1.1 (0.9-1.1) 07/31/18 19:07 APTT 27.6 Seconds (21.0-31.0) 07/31/18 19:07 PTT Ratio 1.0 07/31/18 19:07 POC Sodium 137 mEq/L (135-144) 07/31/18 19:07 Sodium 139 mmol/L (136-145) 07/31/18 19:07 POC Potassium 4.4 mEq/L (3.3-5.0) 07/31/18 19:07 Potassium 4.4 mmol/L (3.5-5.1) 07/31/18 19:07 POC Chloride 99 mEq/L (101-112) L 07/31/18 19:07 Chloride 102 mmol/L (98-107) 07/31/18 19:07 Carbon Dioxide 29 mmol/L (21-32) 07/31/18 19:07 POC Total CO2 26 mEq/l (24-31) 07/31/18 19:07 Anion Gap 8.0 (3-11) 07/31/18 19:07 POC Anion Gap 18.0 mmol/L (16-25) 07/31/18 19:07 POC BUN 11 mg/dl (7-18) 07/31/18 19:07 BUN 12 mg/dl (7-18) 07/31/18 19:07 Creatinine 0.91 mg/dl (0.6-1.2) 07/31/18 19:07 POC Creatinine 0.8 mg/dl (0.6-1.3) 07/31/18 19:07 Est Cr Clr Drug Dosing 35.3 ml/min 07/31/18 19:07 Est GFR ( Amer) 67.6 07/31/18 19:07 Est GFR (Non-Af Amer) 58.3 07/31/18 19:07 BUN/Creatinine Ratio 13.0 (10-20) 07/31/18 19:07 Glucose 196 mg/dl (70-99) H 07/31/18 19:07 POC Glucose (other) 200 mg/dl (70-99) H 07/31/18 19:07 Calcium 9.4 mg/dl (8.5-10.1) 07/31/18 19:07 POC Ioniz Calcium [place] 1.18 mmol/l (1.12-1.32) 07/31/18 19:07 Magnesium 1.6 mg/dl (1.8-2.4) L 07/31/18 19:07 Total Bilirubin 0.4 mg/dl (0.2-1) 07/31/18 19:07 AST 23 U/L (15-37) 07/31/18 19:07 ALT 26 U/L (12-78) 07/31/18 19:07 Alkaline Phosphatase 88 U/L (45-117) 07/31/18 19:07 Troponin I < 0.015 ng/ml (0-0.045) 07/31/18 19:07 Total Protein 7.5 gm/dl (6.4-8.2) 07/31/18 19:07 Albumin 3.4 gm/dl (3.4-5.0) 07/31/18 19:07 Globulin 4.1 gm/dl (2.5-4.0) H 07/31/18 19:07 Albumin/Globulin Ratio 0.8 (0.9-2) L 07/31/18 19:07 TSH 0.867 uIu/ml (0.300-4.500) 07/31/18 19:07 Urine Color Yellow 07/31/18 20:36 Urine Appearance Clear (Clear) 07/31/18 20:36 Urine pH 6.5 (4.5-7.5) 07/31/18 20:36 Ur Specific [place] 1.045 (1.000-1.030) H 07/31/18 20:36 Urine Protein Negative (Negative) 07/31/18 20:36 Urine Glucose (UA) Negative (Negative) 07/31/18 20:36 Urine Ketones Negative (Negative) 07/31/18 20:36 Urine Blood Negative (Negative) 07/31/18 20:36 Urine Nitrite Negative (Negative) 07/31/18 20:36 Urine Bilirubin Negative (Negative) 07/31/18 20:36 Urine Urobilinogen Negative (Negative) 07/31/18 20:36 Ur Leukocyte Esterase Negative (Negative) 07/31/18 20:36 Blood Type Cancelled 07/31/18 19:07 Antibody Screen Cancelled 07/31/18 19:[address] head: 1. No acute intracranial hemorrhage or midline shift. 2. Decreased attenuation of the right MCA distribution with subtle blurring of the browne-white interface is suspicious for acute infarction. 3. Age-related involutional changes with chronic microvascular ischemic disease. Head Neck CTA: 1. Focal vascular cut off at the distal right M1 segment near the MCA bifurcation with an associated right MCA territory infarct. 2. No significant stenosis, occlusion, or dissection within the bilateral common carotid or internal carotid arteries. 3. Moderate focal stenosis within the mid left M1 segment. 4. Mild to moderate multifocal narrowing within the bilateral carotid siphons. 5. 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 However, flow is reconstituted at the C6 level. This remains unchanged. Chest x-ray: Normal EKG as per my interpretation: Rate 80, NSR, 1AVB, LAD, LAFB, no ischemia
--- NOTE | 2018-07-31 23:49 | Emergency Department Note ---
Entered by Shannon Venegas acting as a scribe for Mg Cabezas MD ED Provider Note CHIEF COMPLAINT: Stroke symptoms HISTORY OF PRESENT ILLNESS: The patient is a 83 year old female who presents to the Emergency Room with complaints of an episode of stroke symptoms beginning at 1400, 5 hours prior to arrival. The patient states that at this time she began to drool and have slurred speech. She states that at this time, her noticed left-sided facial droop. The patient states that her symptoms have improved since this time . The patient states that she has a history of strokes, but states that her symptoms are not similar to her prior episodes. The patient states that she felt at her baseline last night and this morning. The patient states that she saw her PCP just prior to arrival, and states that he recommended she be seen in the ED. Pt denies LOC, headache, fevers, chills, diaphoresis, visual changes, neck pain, chest pain, breathing difficulties, nausea, vomiting, abdominal pain, back pain, melena, hematochezia, urinary symptoms, numbness, weakness, lymphadenopathy, rash, or other complaints. REVIEW OF SYSTEMS: See HPI for pertinent positives and negatives. A total of ten systems were reviewed and were otherwise negative. PMHx/PSHx: CKD Hypothyroidism Type 2 Diabetes Breast Cancer CVA HTN SOCIAL HISTORY: Patient lives at home. PHYSICAL EXAM: GENERAL: Awake, alert, well-appearing, in no distress. Speech slow but not slurred. HENT: Normocephalic, atraumatic. Oropharynx unremarkable. Left-sided facial droop. No drooling. Forehead sparing. EYES: PERRL. Normal conjunctiva. Sclera non-icteric. NECK: Inspection normal. Non-tender. Supple. No nuchal rigidity. FROM. No masses. RESPIRATORY: Clear to auscultation. No wheezes. No rales. Normal respiratory effort. CARDIAC: Normal rate. Normal rhythm. No murmurs. No rubs. Extremities warm and well perfused. Pulses equal. No JVD. GI: Soft, non-distended. No tenderness to palpation. No rebound or guarding. No masses. RECTAL: Deferred. MUSCULOSKELETAL: Atraumatic. Chest examination reveals no tenderness. The back is symmetrical on inspection without obvious abnormality. There is no CVA tenderness to palpation. No joint edema. LOWER EXTREMITIES: Calves are equal size bilaterally and non-tender. No edema. No discoloration. NEURO: Normal sensorium. No sensory or motor deficits noted. Left-sided facial droop. Speech slowed but not slurred. No drooling. Forehead sparing. Otherwise cranial nerves intact. SKIN: No rash or jaundice noted. EMERGENCY DEPARTMENT COURSE: 1855: Past medical records reviewed. The patient was evaluated in room B3B, and a complete history and physical examination were performed. 1915: I discussed the case with Dr. Alcantara Stroke Neurology who will further evaluate the patient via TeleStroke. 1939: I discussed the case with Dr. Arango-Radiology who states that there is no hemorrhage or obvious acute findings on the patient's CT of the head, but states that there is some questionable browne white change on the right. 2019: I discussed the case and results with Dr. Alcantara Stroke Neurology who states that the patient does not need immediate interventions. He recommends giving the patient 81mg of Aspirin, continuing fluid hydration, and continuing the patient's Plavix. He states that he will review the CTA. 2052: I discussed the case with Dr. Alcantara Stroke Neurology who s tates that he now has concern for developing vasculitis. He recommends 500mg Solumedrol and transferring her to [place]. 2253: [facility] for further evaluation until the patient is able to be transferred to [place]. MEDICAL DECISION MAKING: Prior records/ancillary studies reviewed. Nursing notes reviewed and agree them. Additional history obtained from the patient's . The patient's history was concerning for left facial droop, drooling and slurred speech which acutely started at 1400 hrs. Differential diagnosis: Etiologies such as CVA, TIA, Gordon's palsy, metabolic, infection, hypo/hyperglycemia, electrolyte abnormalities, cardiac sources, intracerebral event, toxicologic, neurologic, as well as others were entertained. Physical examination: As above. ER treatment provided: IV Lock Normal saline hydration at 50 mL's an hour IV magnesium Oral aspirin On reassessment the patient felt better. IV Solu-Medrol 500 mg Diagnostics interpretation by me: ECG: Sinus rhythm with sinus arrhythmia and first-degree AV block at [address] elevation or depression. No PACs or PVCs. The labs revealed a mild anemia on CBC. Chemistry panel revealed mild hyperglycemia. No leukocytosis. Mild hypomagnesemia. Imaging studies: Chest imaging was negative. CT scan of the head and CTA of the head and neck were performed. There is concerns for an acute CVA noted in the right MCA territory. Multiple vessels with changes noted. Consultation: The patient was made a stroke alert on initial evaluation and consultation was made with Dr. Parsons of [place] tele-stroke. He evaluated the patient and after reviewing the diagnostic imaging felt that the patient was suffering from a very small but acute CVA. He recommended against TPA. After the CTA was reviewed he had concerns about a developing vasculitis. He recommended IV Solu- Medrol in addition to the aspirin that she received. He felt that the patient would be best served by transfer to [facility]. I did discuss this with the patient and her and they were in agreement. I gave my usual and customary discussion regarding this issue. Medical command was done by me. Unfortunately there are no ambulances that can transport the patient tonight as there are multiple other transfers already in progress and due to whether she will need to stay here until the morning. Because of this did consult with Dr. Muñoz of the [facility]. The patient will be admitted here and managed until transport can be arranged to [place]. CRITICAL CARE: I have personally spent 35 minutes of critical care time in the direct manageme nt of this patient. This includes bedside care, interpretation of diagnostic studies, and testing, discussion with consultants, patient, and family members, and other required patient management activities. This 35 minutes is in excess of all separately billable procedures. IMPRESSION: Acute CVA Possible vasculitis PLAN: Admit. The scribe's documentation has been prepared under my direction and personally reviewed by me in its entirety. I confirm that the note above accurately reflects all work, treatment, procedures, and medical decision making performed by me. Impression & Plan Acute cerebrovascular accident (CVA) Past Med/Surg History Social History Preferred Language: Georgian Communication Ability: Effective Beliefs That Will Affect Care: None Current Living Situation: Spouse Feels Safe at Home: Yes Smoking Status: Never smoker Second Hand Exposure: No Hx Alcohol Use: No Hx Substance Use: No Results & Data Vital Signs Vital Signs - 24 hr 07/31/18 18:50 07/31/18 20:06 07/31/18 20:46 Temperature 36.8 C Temperature Source Oral Sepsis Recent Fever Within 48 Hours No Sepsis New/Unexplained Change in Mental Status No Sepsis Action Taken by Nursing No Action Required Pulse Rate 101 H Pulse Rate [Apical] 62 60 Pulse Rhythm [Apical] Pulse Strength [Apical] Respiratory Rate 17 18 18 Respiratory Effort / Characteristics Respiratory Depth Blood Pressure 166/79 H Blood Pressure [Left Arm] 144/83 H 107/80 Blood Pressure Mean 108 Blood Pressure Mean [Left Arm] 103 89 Blood Pressure Position Sitting Blood Pressure Position [Left Arm] Sitting Sitting Pulse Oximetry 98 96 99 Oxygen Delivery Method Room Air Room Air 07/31/18 21:12 07/31/18 21:31 07/31/18 22:02 Temperature Temperature Source Sepsis Recent Fever Within 48 Hours Sepsis New/Unexplained Change in Mental Status Sepsis Action Taken by Nursing Pulse Rate 61 52 L Pulse Rate [Apical] 79 Pulse Rhythm [Apical] Regular Pulse Strength [Apical] Normal Respiratory Rate 20 20 17 Respiratory Effort / Characteristics Non-Labored Spontaneous Respiratory Depth Normal Blood Pressure 159/77 H 187/78 H Blood Pressure [Left Arm] 159/76 H Blood Pressure Mean 104 114 Blood Pressure Mean [Left Arm] 103 Blood Pressure Position Blood Pressure Position [Left Arm] Pulse Oximetry 96 Oxygen Delivery Method Room Air 07/31/18 22:31 07/31/18 23:01 Temperature Temperature Source Sepsis Recent Fever Within 48 Hours Sepsis New/Unexplained Change in Mental Status Sepsis Action Taken by Nursing Pulse Rate 54 L 57 L Pulse Rate [Apical] Pulse Rhythm [Apical] Pulse Strength [Apical] Respiratory Rate 22 19 Respiratory Effort / Characteristics Respiratory Depth Blood Pressure 174/81 H 185/87 H Blood Pressure [Left Arm] Blood Pressure Mean 112 119 Blood Pressure Mean [Left Arm] Blood Pressure Position Blood Pressure Position [Left Arm] Pulse Oximetry Oxygen Delivery Method Home Medications Current Medication List: was personally reviewed by me Laboratory Data Attestation: I reviewed the patient's lab results. Result diagrams: 07/31/18 19:07 07/31/18 19:07 Lab Results 07/31/18 07/31/18 07/31/18 Range/Units 19:07 19:07 19:07 WBC 6.54 (4.8-10.8) K/uL RBC 3.93 L (4.2-5.4) M/uL Hgb 11.0 L (12.0-16.0) g/dL POC Hgb (12.0-16.0) g/dl Hct 32.4 L (37-47) % POC Hct (37-47) % MCV 82.4 (80-100) fL MCH 28.0 (25-34) pg MCHC 34.0 (32-36) g/dL RDW Std Deviation 40.7 (36.4-46.3) fL RDW Coeff of Tammie 13.3 (11.5-14.5) % Plt Count 264 (130-400) K/uL MPV 10.0 (7.4-10.4) fL Immature Gran % (Auto) 0.3 % Neut % (Auto) 45.8 % Lymph % (Auto) 43.3 % [place] % (Auto) 8.0 % Eos % (Auto) 2.1 % Baso % (Auto) 0.5 % Immature Gran # (Auto) 0.02 (0.00-0.02) K/uL Neut # (Auto) 3.00 (1.4-6.5) K/uL Lymph # (Auto) 2.83 (1.2-3.4) K/uL [place] # (Auto) 0.52 (0.11-0.59) K/uL Eos # (Auto) 0.14 (0-0.5) K/uL Baso # (Auto) 0.03 (0-0.2) K/uL PT 11.0 (9.0-12.0) Seconds INR 1.1 (0.9-1.1) APTT 27.6 (21.0-31.0) Seconds PTT Ratio 1.0 POC Sodium (135-144) mEq/L Sodium 139 (136-145) mmol/L POC Potassium (3.3-5.0) mEq/L Potassium 4.4 (3.5-5.1) mmol/L POC Chloride (101-112) mEq/L Chloride 102 (98-107) mmol/L Carbon Dioxide 29 (21-32) mmol/L POC Total CO2 (24-31) mEq/l Anion Gap 8.0 (3-11) POC Anion Gap (16-25) mmol/L POC BUN (7-18) mg/dl BUN 12 (7-18) mg/dl Creatinine 0.91 (0.6-1.2) mg/dl POC Creatinine (0.6-1.3) mg/dl Est Cr Clr Drug Dosing 35.3 ml/min Est GFR ( Amer) 67.6 Est GFR (Non-Af Amer) 58.3 BUN/Creatinine Ratio 13.0 (10-20) Glucose 196 H (70-99) mg/dl POC Glucose (other) (70-99) mg/dl Calcium 9.4 (8.5-10.1) mg/dl POC Ioniz Calcium Nakita (1.12-1.32) mmol/l Magnesium 1.6 L (1.8-2.4) mg/dl Total Bilirubin 0.4 (0.2-1) mg/dl AST 23 (15-37) U/L ALT 26 (12-78) U/L Alkaline Phosphatase 88 (45-117) U/L Troponin I < 0.015 (0-0.045) ng/ml Total Protein 7.5 (6.4-8.2) gm/dl Albumin 3.4 (3.4-5.0) gm/dl Globulin 4.1 H (2.5-4.0) gm/dl Albumin/Globulin Ratio 0.8 L (0.9-2) TSH 0.867 (0.300-4.500) uIu/ml Urine Color Urine Appearance (Clear) Urine pH (4.5-7.5) Ur Specific [place] (1.000-1.030) Urine Protein (Negative) Urine Glucose (UA) (Negative) Urine Ketones (Negative) Urine Blood (Negative) Urine Nitrite (Negative) Urine Bilirubin (Negative) Urine Urobilinogen (Negative) Ur Leukocyte Esterase (Negative) Blood Type Antibody Screen 07/31/18 07/31/18 07/31/18 Range/Units 19:07 19:07 20:36 WBC (4.8-10.8) K/uL RBC (4.2-5.4) M/uL Hgb (12.0-16.0) g/dL POC Hgb 11.2 L (12.0-16.0) g/dl Hct (37-47) % POC Hct 33 L (37-47) % MCV (80-100) fL MCH (25-34) pg MCHC (32-36) g/dL RDW Std Deviation (36.4-46.3) fL RDW Coeff of Tammie (11.5-14.5) % Plt Count (130-400) K/uL MPV (7.4-10.4) fL Immature Gran % (Auto) % Neut % (Auto) % Lymph % (Auto) % [place] % (Auto) % Eos % (Auto) % Baso % (Auto) % Immature Gran # (Auto) (0.00-0.02) K/uL Neut # (Auto) (1.4-6.5) K/uL Lymph # (Auto) (1.2-3.4) K/uL [place] # (Auto) (0.11-0.59) K/uL Eos # (Auto) (0-0.5) K/uL Baso # (Auto) (0-0.2) K/uL PT (9.0-12.0) Seconds INR (0.9-1.1) APTT (21.0-31.0) Seconds PTT Ratio POC Sodium 137 (135-144) mEq/L Sodium (136-145) mmol/L POC Potassium 4.4 (3.3-5.0) mEq/L Potassium (3.5-5.1) mmol/L POC Chloride 99 L (101-112) mEq/L Chloride (98-107) mmol/L Carbon Dioxide (21-32) mmol/L POC Total CO2 26 (24-31) mEq/l Anion Gap (3-11) POC Anion Gap 18.0 (16-25) mmol/L POC BUN 11 (7-18) mg/dl BUN (7-18) mg/dl Creatinine (0.6-1.2) mg/dl POC Creatinine 0.8 (0.6-1.3) mg/dl Est Cr Clr Drug Dosing ml/min Est GFR ( Amer) Est GFR (Non-Af Amer) BUN/Creatinine Ratio (10-20) Glucose (70-99) mg/dl POC Glucose (other) 200 H (70-99) mg/dl Calcium (8.5-10.1) mg/dl POC Ioniz Calcium Nakita 1.18 (1.12-1.32) mmol/l Magnesium (1.8-2.4) mg/dl Total Bilirubin (0.2-1) mg/dl AST (15-37) U/L ALT (12-78) U/L Alkaline Phosphatase (45-117) U/L Troponin I (0-0.045) ng/ml Total Protein (6.4-8.2) gm/dl Albumin (3.4-5.0) gm/dl Globulin (2.5-4.0) gm/dl Albumin/Globulin Ratio (0.9-2) TSH (0.300-4.500) uIu/ml Urine Color Yellow Urine Appearance Clear (Clear) Urine pH 6.5 (4.5-7.5) Ur Specific [place] 1.045 H (1.000-1.030) Urine Protein Negative (Negative) Urine Glucose (UA) Negative (Negative) Urine Ketones Negative (Negative) Urine Blood Negative (Negative) Urine Nitrite Negative (Negative) Urine Bilirubin Negative (Negative) Urine Urobilinogen Negative (Negative) Ur Leukocyte Esterase Negative (Negative) Blood Type Cancelled Antibody Screen Cancelled Administered Medications Sodium Chloride (Nss 1000ml) 1,000 mls @ 50 mls/hr IV .Q20H [place] Stop: 08/30/18 19:14 Last Admin: 07/31/18 19:36 Dose: 50 mls/hr Documented by: [id number] Ioversol (Optiray 320 125ml) 120 ml IV ONCE PRN PRN Reason: Interaction Checking Stop: 08/04/18 19:32 Last Admin: 07/31/18 19:34 Dose: 120 ml Documented by: [id number] Discontinued Medications Aspirin (Aspirin) 324 mg PO NOW STA Stop: 07/31/18 20:22 Last Admin: 07/31/18 20:39 Dose: 324 mg Documented by: [id number] Magnesium Sulfate/Dextrose (Magnesium Sulfate / D5w) 1 gm in 100 mls @ 100 mls/hr IV ONE ONE Stop: 07/31/18 21:14 Last Infusion: 07/31/18 21:20 Dose: 0 mls/hr Documented by: [id number] Admin: 07/31/18 20:20 Dose: 100 mls/hr Documented by: [id number] Methylprednisolone 500 mg/ (Dextrose) 258 mls @ 266 mls/hr IV NOW STA Stop: 07/31/18 21:52 Last Infusion: 07/31/18 22:12 Dose: 0 mls/hr Documented by: [id number] Admin: 07/31/18 21:21 Dose: 266 mls/hr Documented by: [id number] Imaging Data Radiologist's Impression: Radiology results as stated below per my review and the radiologist's interpretation: HEAD & NECK CTA HISTORY: left facial droop TECHNIQUE: Multiaxial CT images of the head were performed following the intravenous administration of contrast to evaluate the major cerebral vessels. Multiaxial CT images of the neck were also performed following the intravenous administration of contrast to evaluate the major cervical vessels. Maximum intensity projection images were also obtained. A dose lowering technique was utilized adhering to the principles of ALARA. COMPARISON: Head CT 07/30/2018. Head and neck CTA 12/16/2017. FINDINGS: The major dural venous sinuses appear patent. Hypoplastic distal left vertebral, unchanged. The dominant right vertebral artery appears patent distally. The basilar artery and right [employer] are widely pain. Mild focal stenosis at the left P1 segment, unchanged. Mild to moderate multifocal narrowing within the bilateral carotid siphons. The bilateral ACAs are widely patent. Focal moderate stenosis of approximately 50% within the mid left M1 segment. The remaining distal left MCA branches are patent. Focal abrupt cut off at the distal right M1 segment near the MCA bifurcation. There is reconstitution of flow of the right M2 branches, however, this appears diminished compared to the prior study. Loss of the browne-white junction within the right MCA territory consistent with an acute infarct. The aortic arch and proximal great vessels are widely patent. No significant stenosis, occlusion, or dissection within the bilateral common carotid artery or internal carotid arteries. There is a dominant right vertebral artery which is widely patent. Hypoplastic left vertebral artery which is occluded proximally. There is reconstitution of the left vertebral artery at the C6 level. This remains unchanged. IMPRESSION: 1. Focal vascular cut off at the distal right M1 segment near the MCA bifurcation with an associated right MCA territory infarct. 2. No significant stenosis, occlusion, or dissection within the bilateral common carotid or internal carotid arteries. 3. Moderate focal stenosis within the mid left M1 segment. 4. Mild to moderate multifocal narrowing within the bilateral carotid siphons. 5. 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 However, flow is reconstituted at the C6 level. This remains unchanged. Electronically signed by: Gerald Gonzales M.D. 07/31/2018 7:51 PM XR chest 1V portable HISTORY: 83 years-old Female stroke like symptoms acute strokelike symptoms COMPARISON: Chest radiograph 07/30/2018 TECHNIQUE: Portable AP view of the chest FINDINGS: Cardiac mediastinal and hilar silhouettes are within normal limits. Calcification of the thoracic arch. Mild hyperinflation without pneumothorax, pl eural effusion, focal airspace consolidation or overt pulmonary edema. Degenerative changes of the shoulders and spine. IMPRESSION: No acute process. The above report was generated using voice recognition software. It may contain grammatical, syntax or spelling errors. Electronically signed by: Rommel Arango M.D. 07/31/2018 7:[address] head/brain wo con CLINICAL HISTORY: 83 years-old Female with Stroke evaluation . Acute strokelike symptoms TECHNIQUE: Multiple axial CT images of the head were obtained without contrast. A dose lowering technique was utilized adhering to the principles of ALARA. COMPARISON: CT head 07/30/2018. FINDINGS: No acute intracranial hemorrhage, midline shift, intracranial mass, hydrocephalus, or abnormal extra-axial collection. Decreased attenuation of the right frontal parietal and likely also temporal lobes with blurring of the browne- white interface, for example image 16 series 2. Mild age-related involutional changes. Patchy white matter hypodensities are suggestive of chronic microvascular ischemic disease. Senescent calcifications of the lentiform nuclei. The calvarium is intact. The paranasal sinuses, mastoid air cells, and middle ear cavities are clear. IMPRESSION: 1. No acute intracranial hemorrhage or midline shift. 2. Decreased attenuation of the right MCA distribution with subtle blurring of the browne-white interface is suspicious for acute infarction. 3. Age-related involutional changes with chronic microvascular ischemic disease. Findings were discussed with Dr. Cabezas on 07/31/2018 at 7:40 PM The above report was generated using voice recognition software. It may contain grammatical, syntax or spelling errors. Electronically signed by: Rommel Arango M.D. 07/31/2018 7:44 PM ECG Data Attestation: I personally reviewed and interpreted this ECG as follows: Indication: weakness Rate (beats per minute): 81 Rhythm: sinus with SA Findings: + 1st degree AV block; no PAC, no PVC, no ST depression and no ST elevation Blood Pressure Blood Pressure Findings: Normal blood pressure Discharge Plan Visit Data Chief Complaint: Referred by Doctor Stated Complaint: DISORIENTATION ED Provider: Mg Cabezas Discharge Problem: Acute cerebrovascular accident (CVA) Patient Disposition: Being Evaluated by Hospitalist Forms Stand Alone Forms: My [facility] Prescriptions Prescriptions: No Action oxybutynin chloride 5 mg Tablet 5 mg PO QAM RF: 0 levothyroxine 75 mcg Capsule 75 mcg PO QAM RF: 0 multivitamin Tablet 1 tab PO QAM RF: 0 metformin 500 mg tablet 500 mg PO BID RF: 0 atorvastatin 80 mg tablet 80 mg PO QAM RF: 0 clopidogrel 75 mg tablet 75 mg PO QAM RF: 0 lisinopril 5 mg tablet 5 mg PO QAM RF: 0 magnesium oxide 400 mg magnesium capsule 400 mg PO BID Qty: 10 RF: 0 Referrals Referrals: Shen Rider MD [Primary Care Provider] - The scribe's documentation has been prepared under my direction and personally reviewed by me in its entirety. I confirm that the note above accurately r eflects all work, treatment, procedures, and medical decision making performed by me.
[2018-08-01] MEDS ORDERED: INSULIN GLARGINE SOLOSTAR 100 UNITS/ML 3 ML PEN SQ STA (01:28)
[2018-08-01] MEDS ORDERED: NITROGLYCERIN SL 0.4 MG/TAB TAB SL PRN (01:28)
[2018-08-01] MEDS ORDERED: MAGNESIUM SULFATE / D5W 1 GM/100 ML BAG IV ONE (01:28)
[2018-08-01] MEDS ORDERED: GLUCAGON FOR INJ 1 MG VIAL SQ PRN (01:28)
[2018-08-01] MEDS ORDERED: ACETAMINOPHEN 325 MG TAB PO PRN (01:28)
[2018-08-01] MEDS ORDERED: PHARMACIST DISCHARGE MED REC CONSULT PRN (01:28)
[2018-08-01] MEDS ORDERED: INSULIN ASPART 100 UNITS/ML 3 ML PEN SC SCH (01:28)
[2018-08-01] MEDS ORDERED: DEXTROSE 50% 50 ML SYRINGE IV PRN (01:28)
[2018-08-01] MEDS ORDERED: GLUCOSE 40% GEL 15 GM TUBE PO PRN (01:28)
[2018-08-01] MEDS ORDERED: TRAMADOL HCL 50 MG TABLET PO PRN (01:28)
[2018-08-01] MEDS ORDERED: CARBOHYDRATES FOR HYPOGLYCEMIA PO PRN (01:28)
[2018-08-01] MEDS ORDERED: GLUCOSE 10 TABS/TUBE PO PRN (01:28)
[2018-08-01] MEDS ORDERED: PROMETHAZINE HCL 12.5 MG in SODIUM CHLORIDE 0.9% 50 ML IV PRN (01:28)
[2018-08-01] MEDS ORDERED: SODIUM CHLORIDE 0.9% 1000ML 1,000 ML IV ONE (02:28)
--- NOTE | 2018-08-01 04:17 | Discharge Summary ---
Date of Service August 01, 2018 Admission HPI Per Admitting Provider History obtained from patient, family, and records. Medical history significant for hypertension, hyperlipidemia, history TIA, breast cancer left status post surgery, radiation, DM2 on oral meds. Recent confinement November 2017 for transient right-sided weakness, dysarthria symptoms attributed to TIA. Patient discharged on Plavix. 10 days ago, patient noted achy headache symptoms, dizziness symptoms described as lightheadedness. Symptoms attributed to dehydration. Patient was seen at the ER yesterday for persistent weakness symptoms. Blood pressure noted to be elevated. CT head no acute pathology. Patient discharged home from the ER. Around 2 PM today, patient noted by to have slurred speech symptoms, left-sided facial droop. Patient denies headache, chest pain, S OB, abdominal pain, black, bloody stools. Patient directed by PCP to [facility] ER. Stroke alert called upon arrival at the ER. Aspirin given at the ER. CTA showed possible CVA on right MCA territory, multiple vessels with changes noted. TPA not recommended by [facility] telemetry stroke neurologist. IV Solu-Medrol given for possible vasculitis. Patient accepted for transfer by [facility] from the emergency room. Unfortunately, urgent transfer precluded by ambulance in availability. Hospitalist service requested to admit patient to the floor until ambulance services available in a.m. Some improvement in slurred speech, left-sided facial weakness noted by family after Solu-Medrol administered. 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 Discharge Data Allergies Allergy/AdvReac Type Severity Reaction Status Date / Time melon Allergy Severe Difficulty Verified 07/31/18 23:49 Breathing prednisone Allergy Mild RAISES Verified 07/31/18 23:49 BLOOD SUGAR AND CAUSES BLURRY VISION Consultations 07/31/18 23:06 ED Decision to Admit Stat 08/01/18 01:28 Consult Case Management - Discharge Planning Routine Consult Case Management - Discharge Planning Routine 08/01/18 03:15 Burn CD for patient Stat Ordered Studies 07/31/18 19:03 CT head/brain wo con Stat 07/31/18 19:04 CT angio head w con Stat CT angio neck with con Stat Hospital Course (1) 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 [facility] transfer from the emergency room precluded by ambulance unavailability. Hospitalist service requested to admit patient to the floor pending ambulance availability. Transfer to [facility] once ambulance service available. Patient has been kindly accepted for transfer by [facility] neurologist, Dr. Parsons. 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 Prescriptions: Discontinued levothyroxine 75 mcg Capsule 75 mcg PO QAM RF: 0 metformin 500 mg tablet 500 mg PO BID RF: 0 magnesium oxide 400 mg magnesium capsule 400 mg PO BID Qty: 10 RF: 0 No Action oxybutynin chloride 5 mg Tablet 5 mg PO QAM RF: 0 multivitamin Tablet 1 tab PO QAM RF: 0 atorvastatin 80 mg tablet 80 mg PO QAM RF: 0 clopidogrel 75 mg tablet 75 mg PO QAM RF: 0 lisinopril 5 mg tablet 5 mg PO QAM RF: 0 Stand-Alone Forms: [facility] Discharge Orders: Discharge Order (Routine); Ordered 08/01/18 Ordered By: aLng Callaway Admission Data Admit Date/Time: 07/31/18 23:50 Attending Provider: Taye Warner Admit Provider: Lang Callaway Primary Care Provider: Shen Rider Other Providers: Lang Callaway Service: Telemetry Medical
[2018-08-01] MEDS ORDERED: STROKE PATIENT DISCHARGE STA (04:18)
[2018-08-01] MEDS ORDERED: LEVOTHYROXINE SODIUM 75 MCG TABLET PO SCH (06:30)
[2018-08-01] MEDS ORDERED: OXYBUTYNIN CHLORIDE 5 MG TAB PO SCH (09:00)
[2018-08-01] MEDS ORDERED: ENOXAPARIN INJ 30 MG/0.3 ML SYR SQ SCH (09:00)
[2018-08-01] MEDS ORDERED: CLOPIDOGREL BISULFATE 75 MG TAB PO SCH (09:00)
[2018-08-01] MEDS ORDERED: ASPIRIN 81 MG ECTAB PO SCH (09:00)
[2018-08-01] MEDS ORDERED: INSULIN GLARGINE SOLOSTAR 100 UNITS/ML 3 ML PEN SQ SCH ×2 (09:00→21:00)
[2018-08-01] MEDS ORDERED: MULTIVITAMIN TAB PO SCH (09:00)
[2018-08-01] MEDS ORDERED: ATORVASTATIN 40 MG TAB PO SCH (09:00)
[2018-08-01] MEDS ORDERED: METHYLPREDNISOLONE IV SCH (09:00)
== END 2018-08-01 04:39 | disposition short-term general hospital (02) | DRG 66 ==
LOC: ED 18:48 → 2N 23:50

== ENCOUNTER 2018-10-29 09:00 | Inpatient (IN) ==
[2018-10-29 09:50] LABS: Basophils # (auto) 0.02 K/uL (0-0.2); Basophils % (auto) 0.2 %; Eosinophils # (auto) 0.07 K/uL (0-0.5); Eosinophils % (auto) 0.9 %; Hematocrit (blood only) 34.3 % (37-47); Immature Granulocytes # (auto) 0.07 K/uL (0.00-0.02); Immature Granulocytes % (auto) 0.9 %; Lymphocytes # (auto) 2.39 K/uL (1.2-3.4); Lymphocytes % (auto) 29.7 %; Mean Corpuscular Hemoglobin 28.9 pg (25-34); Mean Corpuscular Hgb Conc 32.1 g/dL (32-36); Mean Corpuscular Volume 90.3 fL (80-100); Mean Platelet Volume 11.3 fL (7.4-10.4); Monocytes # (auto) 0.67 K/uL (0.11-0.59); Monocytes % (auto) 8.3 %; Neutrophils # (auto) 4.83 K/uL (1.4-6.5); Platelet Count 164 K/uL (130-400); RDW Coefficient of Variation 15.6 % (11.5-14.5); RDW Standard Deviation 51.7 fL (36.4-46.3); White Blood Count 8.05 K/uL (4.8-10.8)
--- NOTE | 2018-10-29 09:58 | CT Scan Report ---
CT SCAN OF THE BRAIN WITHOUT IV CONTRAST CLINICAL HISTORY: Strokelike symptoms. COMPARISON STUDY: CT of the brain dated 07/31/2018. TECHNIQUE: Unenhanced axial CT scan of the brain is performed from the vertex to the skull base. A do se lowering technique was utilized adhering to the principles of ALARA. CT DOSE: 537.48 mGy.cm FINDINGS: Brain parenchyma: There are age-related involutional changes noting moderate subcortical and periven tricular microangiopathic change. There is no hemorrhage, mass effect, or evidence of acute territori al ischemia by CT criteria. Canales-white matter differentiation is preserved. No extra-axial fluid parminder ection is seen. Ventricles, sulci, cisterns: Prominent secondary to involutional change. Intracranial vasculature: There is atherosclerotic calcification of the cavernous carotid arteries. Calvarium: Unremarkable. Sinuses and mastoids: The visualized paranasal sinuses are clear. The mastoid air cells are well pneu matized. Orbits: The bony orbits are grossly intact. There are bilateral ocular lens implants. IMPRESSION: There is no hemorrhage, mass effect, or evidence of acute territorial ischemia by CT philip hernandez. Electronically signed by: Yuniel Dejesus M.D. 10/29/2018 9:57 AM
[2018-10-29 10:08] LABS: INR 1.3 (0.9-1.1); Partial Thromboplastin Ratio 0.9; Partial Thromboplastin Time 23.3 Seconds (21.0-31.0); Prothrombin Time 12.9 Seconds (9.0-12.0)
[2018-10-29 10:13] LABS: Alanine Aminotransferase 18 U/L (12-78); Albumin Globulin Ratio 0.9 (0.9-2); Albumin Level 2.9 gm/dl (3.4-5.0); Alkaline Phosphatase 51 U/L (45-117); Aspartate Aminotransferase 21 U/L (15-37); BUN Creatinine Ratio 13.3 (10-20); Bilirubin,Total 0.7 mg/dl (0.2-1); Blood Urea Nitrogen 11 mg/dl (7-18); Calcium 7.2 mg/dl (8.5-10.1); Carbon Dioxide 31 mmol/L (21-32); Chloride 107 mmol/L (98-107); Creatinine Clr Calc Pharmacy 39.2 ml/min; Est GFR (African American) 76.7; Est GFR (Non-African American) 66.2; Globulin 3.1 gm/dl (2.5-4.0); Glucose 109 mg/dl (70-99); Magnesium 0.4 mg/dl (1.8-2.4); Sodium 145 mmol/L (136-145); Troponin I < 0.015 ng/ml (0-0.045)
[2018-10-29] MEDS: MAGNESIUM SULFATE / D5W 1 GM/100 ML BAG IV SCH ×2 (10:29→11:38)
--- NOTE | 2018-10-29 10:30 | XRay Report ---
SINGLE VIEW CHEST CLINICAL HISTORY: Strokelike symptoms. FINDINGS: An AP, portable, upright chest radiograph is compared to study dated 07/31/2018 and correlat ed with chest CT dated 06/27/2006. The cardiomediastinal silhouette is unremarkable noting atherosclero tic calcification of the thoracic aorta. Chronic interstitial thickening is similar to previous. The lungs and pleural spaces are clear. Apical scarring is observed. No pneumothorax is seen. The skeleta l structures are osteopenic. The bony thorax is grossly intact. IMPRESSION: No active disease in the chest. Electronically signed by: Yuniel Dejesus M.D. 10/29/2018 10:29 AM
--- NOTE | 2018-10-29 12:15 | History & Physical Report ---
Date of Service October 29, 2018 Assessment & Plan (1) Weakness of left hand: 83 year old woman with a history of diabetes mellitus type 2, TIA in 2018, CVA in July 2018, breast cancer 2015 status post left breast lumpectomy, hypertension who presented to the ER with left hand weakness on waking up this morning and found to have severe hypomagnesiemia. -Left hand weakness with some sensory abnormalities. Differentials include CVA, worsening of previous neurological deficit in the setting of metabolic derangement, Vasculopathy. CT head does not show any bleed or acute infarct. Unclear if GCA reported in history and review of some of the PCP ( Dr Morrison) is biopsy proven. -Last known time well is over 12hours ago, not in TPA window. -Get ESR -Monitor BP for now -Neurochecks q2h per protocol -Will Replete all electrolytes appropriately -Continue Aggrenox -Spoke with Neurologist Dr Amaya. Will get CTA head and neck, MRI brain. Start ASA 81mg in addition to Aggrenox. Will also give one dose of prednisone 60mg for now and follow up ESR result. Will follow up neurologist notes for final recommendations -Fall and aspiration precautions -PT/OT -Monitor BP -Telemetry monitoring (2) Hypomagnesemia: Severe hypomagnesemia -Unclear cause. Patient does report she occasionally has diarrhea if she eats certain foods that upset her stomach -Replete appropriately -Repeat Magnesium levels ordered. Monitor other electrolytes as well (3) Hypokalemia: Potassium is 3 -Likely secondary to severe hypomagnesemia -Replete K and Magnesium and monitor (4) Hypocalcemia: Calcium is 7.2. Corrected for albumin is 8.1 -Likely secondary to severe hypomagnesemia -Replete magnesium and monitor (5) HTN (hypertension): BP on admission was elevated at 172/78. Patient takes small dose of lisinopril 2.5mg at home, likely for renal protection -Will hold lisinopril for now in view of possible CVA/TIA. -Monitor BP (6) Hypothyroidism: Chronic and controlled -Continue home dose of levothyroxine (7) Type 2 diabetes mellitus: Blood glucose management required insulin sliding scale at home in addition to metformin since patient was started on prednisone after diagnosis of GCA. Currently, prednisone is being tapered by Dr Morrison -Will hold metformin for now since glucose monitoring/management will be done inpatient and also patient will get contrast with imaging ordered -Insulin sliding scale per protocol -Carbohydrate controlled diet ordered (8) DVT prophylaxis: -Lovenox subut History of Present Illness Chief Complaint: Left hand weakness Primary Care Provider: Shen Rider MD 83 year old woman with a history of diabetes mellitus type 2, TIA in 2017, CVA in July 2018, breast cancer 2015 status post left breast lumpectomy, hypertension who presented to the ER with left hand weakness on waking up this morning. Patient reported that she had no symptoms prior to going to bed yesterday night. Reports that she has poor sensation in the hand with difficulty coordinating movements with the hands such as picking up objects or dressing herself. Denied any weakness or abnormalities of right extremity or lower extremities. Denied any dysarthria, facial droop, visual changes, change in smell or gait changes. Denied any loss of consciousness, seizures, headaches. At baseline, patient ambulates by herself without aid and able to perform most of her ADLs independently. Uses hearing aid for chronic hearing deficit. 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 Patient was transferred to another facility. She reported being diagnosed of GCA and started on prednisone and aggrenox. Her Primary care physician has been monitoring ESR and tapering prednisone per patient. Does not smoke cigarettes No illicit drug use No alcohol use On presentation to ER, CT Head did not show any hemorrhage, mass effect or acute ischemia. Labs show severe hypomagnesemia. At the time of evaluation, patient reports slight improvement in left hand abnormalities. Allergies Allergy/AdvReac Type Severity Reaction Status Date / Time melon Allergy Severe Difficulty Verified 10/29/18 10:44 Breathing Home Medications Home Medications Medication Instructions Recorded Confirmed Type levothyroxine 75 mcg PO QAM 12/16/17 10/29/18 History atorvastatin 80 mg PO HS 07/30/18 10/29/18 History metformin 500 mg PO BIDM 07/30/18 10/29/18 History aspirin-dipyridamole 1 cap PO BID 10/29/18 10/29/18 History insulin aspart U-100 [Novolog 0 unit SUBCUT UD 10/29/18 10/29/18 History Flexpen U-100 Insulin] lisinopril 2.5 mg PO QAM 10/29/18 10/29/18 History prednisone 2.5 mg PO QAM 10/29/18 10/29/18 History prednisone 10 mg PO QAM 10/29/18 10/29/18 History Past Med/Surg History Family History Other Family history non-contributory Social History Preferred Language: Kyrgyz Communication Ability: Effective Hearing Ability: Use of Hearing Aid Materials Handling Coordinator Required: No Beliefs That Will Affect Care: None marital status: Current Living Situation: Spouse Other Information That Helps Us Care for You: No Feels Safe at Home: Yes Safety Concerns: Feels Safe At This Time Smoking Status: Never smoker Second Hand Exposure: Yes (60 years in past) ; Hx Alcohol Use: No Hx Substance Use: No Review of Systems Review of Systems: Constitutional: No fever; no chills, no fatigue and no anorexia Eyes: No diplopia, no eye pain or blurred vision Ear, Nose, Mouth, Throat: No ear discharge or pain, +chronic hearing deficit, no nasal congestion, no nasal discharge, no epistaxis, no sore throat, no dysphagia,no odynophagia, no hoarseness Respiratory: No cough, no dyspnea, no dyspnea on exertion and no hemoptysis Cardiovascular: No chest pain, no chest pain with activity, no palpitations, no lightheadedness, no syncope, no edema and no calf pain Gastrointestinal: No abdominal pain, No nausea, No vomiting, no melena Genitourinary: No dysuria, no urinary frequency, no urgency, no urinary incontinence Musculoskeletal: No back pain, no joint pain, +left hand weakness Integumentary: No rash, no lesions Neurologic: No headache, no syncope, +left hand weakness and abnormal sensation, + chronic abnormal sensations in both feet at night (Restless leg) Psychiatric: No depression, no suicidal ideation and no anxiety Endocrine: No polydipsia, no polyphagia, no cold intolerance, no heat intolerance Hematologic / Lymphatic: No easy bruising, No limb swelling, No bleeding Physical Exam Physical Exam: General: Well nourished, well hydrated , average body habitus, no acute distress and not ill appearing Eyes: PERRL, conjunctivae normal, not pale, anicteric sclerae, EOM intact bilaterally ENMT: External ear and nose normal, oropharynx normal, Not wearing her hearing aides but about to participate in conversation at ambient tones Neck: Normal visual inspection, no tracheal deviation, no swelling noted Respiratory: Normal respiratory effort, no respiratory distress, lungs clear to auscultation, no crackles and no wheezes Cardiovascular: Pulse is RRR. Heart Sounds: normal S1 and normal S2; no murmurs. Vessels: normal peripheral pulses Extremities: no pedal edema Chest (Breasts): Chest: normal inspection of chest Gastrointestinal (Abdomen): Abdomen is not distended, soft, non-tender to palpation, no palpable hepatosplenomegaly, normal bowel sounds Musculoskeletal: No cyanosis or clubbing, Skin: No rash noted on gross inspection, No ulcers noted Neurologic: Alert and oriented x 3, Power is 4/5 in left hand muscles and normal in other extremities, reduced sensation on dorsum of left hand, CN II, III, IV, V, , VII, VIII, IX, XI,XII grossly intact Psychiatric: Alert and oriented x 3, euthymic affect, no depressed affect Lymphatic: No cervical lymphadenopathy Results & Data Vital Signs (Past 12 Hours) Vital Signs Temp Pulse Pulse Resp BP BP Pulse Ox 10/29/18 10:30 57 L 20 171/71 H 96 10/29/18 09:47 61 20 173/73 H 98 10/29/18 09:43 99 10/29/18 09:10 36.7 C 69 20 196/75 H 98 Laboratory Results 10/29/18 09:35 10/29/18 09:35 Laboratory Results - last 24 hr 10/29/18 10/29/18 10/29/18 09:27 09:35 09:35 WBC 8.05 RBC 3.80 L Hgb 11.0 L Hct 34.3 L MCV 90.3 MCH 28.9 MCHC 32.1 RDW Std Deviation 51.7 H RDW Coeff of Tammie 15.6 H Plt Count 164 MPV 11.3 H Immature Gran % (Auto) 0.9 Neut % (Auto) 60.0 Lymph % (Auto) 29.7 Leon % (Auto) 8.3 Eos % (Auto) 0.9 Baso % (Auto) 0.2 Immature Gran # (Auto) 0.07 H Neut # (Auto) 4.83 Lymph # (Auto) 2.39 Leon # (Auto) 0.67 H Eos # (Auto) 0.07 Baso # (Auto) 0.02 PT 12.9 H INR 1.3 H APTT 23.3 PTT Ratio 0.9 Sodium Potassium Chloride Carbon Dioxide Anion Gap BUN Creatinine Est Cr Clr Drug Dosing Est GFR ( Amer) Est GFR (Non-Af Amer) BUN/Creatinine Ratio Glucose POC Glucose 102 H Calcium Magnesium Total Bilirubin AST ALT Alkaline Phosphatase Troponin I Total Protein Albumin Globulin Albumin/Globulin Ratio 10/29/18 09:35 WBC RBC Hgb Hct MCV MCH MCHC RDW Std Deviation RDW Coeff of Tammie Plt Count MPV Immature Gran % (Auto) Neut % (Auto) Lymph % (Auto) Leon % (Auto) Eos % (Auto) Baso % (Auto) Immature Gran # (Auto) Neut # (Auto) Lymph # (Auto) Leon # (Auto) Eos # (Auto) Baso # (Auto) PT INR APTT PTT Ratio Sodium 145 Potassium 3.0 L Chloride 107 Carbon Dioxide 31 Anion Gap 7.0 BUN 11 Creatinine 0.82 Est Cr Clr Drug Dosing 39.2 Est GFR ( Amer) 76.7 Est GFR (Non-Af Amer) 66.2 BUN/Creatinine Ratio 13.3 Glucose 109 H POC Glucose Calcium 7.2 L Magnesium 0.4 L* Total Bilirubin 0.7 AST 21 ALT 18 Alkaline Phosphatase 51 Troponin I < 0.015 Total Protein 6.0 L Albumin 2.9 L Globulin 3.1 Albumin/Globulin Ratio 0.[address] head : There is no hemorrhage, mass effect, or evidence of acute territorial ischemia by CT criteria. ECG Additional Comments: EKG done at 09;22am showed normal sinus rhythm,rate 62bpm, DC 152ms, QRS 76, QTc 373ms, no St-T changes Code Status & VTE Plan VTE Prophylaxis Plan VTE Prophylaxis will be ordered: Yes (1) Type 2 diabetes mellitus Diabetes mellitus fci insulin use: without fci use (2) Hypothyroidism Hypothyroidism type: unspecified Qualified Code(s): E03.9 - Hypothyroidism, unspecified (3) HTN (hypertension) Hypertension type: unspecified Qualified Code(s): I10 - Essential (primary) hypertension
[2018-10-29] MEDS ORDERED: GLUCOSE 40% GEL 15 GM TUBE PO PRN (13:16)
[2018-10-29] MEDS ORDERED: GLUCAGON FOR INJ 1 MG VIAL SQ PRN (13:16)
[2018-10-29] MEDS ORDERED: GLUCOSE 10 TABS/TUBE PO PRN (13:16)
[2018-10-29] MEDS ORDERED: PHARMACIST DISCHARGE MED REC CONSULT PRN (13:16)
[2018-10-29] MEDS ORDERED: predniSONE 20 MG TAB PO ONE (13:16)
[2018-10-29] MEDS ORDERED: DEXTROSE 50% 50 ML SYRINGE IV PRN (13:16)
[2018-10-29] MEDS ORDERED: POTASSIUM CHLORIDE 20 MEQ TABCR PO STA (13:25)
[2018-10-29] MEDS ORDERED: CALCIUM CARBONATE 1250MG TAB PO SCH (14:00)
[2018-10-29] MEDS ORDERED: CALCIUM CARBONATE 1250MG TAB PO ONE (14:15)
[2018-10-29] MEDS ORDERED: GADOBUTROL 65ML VIAL IV PRN (14:41)
[2018-10-29] MEDS: DIPYRIDAMOLE/ASPIRIN CAP PO SCH ×2 (15:06→20:52)
[2018-10-29] MEDS: LEVOTHYROXINE SODIUM 75 MCG TABLET PO SCH (15:06)
[2018-10-29] MEDS: ENOXAPARIN INJ 40 MG/0.4 ML SYR SC SCH (15:07)
[2018-10-29] MEDS: INSULIN ASPART 100 UNITS/ML 3 ML PEN SC SCH ×2 (15:09→20:52)
--- NOTE | 2018-10-29 15:14 | Emergency Department Note ---
Entered by Mary Castro acting as a scribe for Lalo Farooq History of Present Illness General Chief complaint: Neuro Symptoms/Deficit Stated complaint: LT ARM NOT WORKING, HX STROKE Time Seen by Provider: 10/29/18 09:19 Source: patient History of Present Illness Onset (ago): hour(s) 2 Location: head Pain Consistency: + other (episode) Maximum Pain Intensity: 0 Quality: + other (neuro symptoms) Associated symptoms: + denies other symptoms (changes in vision) and + other (difficulty using left hand) The patient is a 83 year old female with a history of TIA and CVA that is presenting to the Emergency Room with complaints of an episode of neurological symptoms that started this morning upon waking around 0730. 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 She states that she was unable to dress herself secondary to her symptoms. She reports that her symptoms have improved slightly since their onset. She notes that she went to sleep last night at her normal time between [id number] and notes that she was asymptomatic at this time. The patient reports that she has a history of a TIA in 11/2017 and a major CVA in 07/2018. She notes that she was transferred to [place] due to her CVA and was diagnosed with giant cell temporal arteritis. She denies any current vision changes. The patient states that she has a history of diabetes but notes that she was unable to test her blood glucose level this morning. She reports that she took a number of her "after dinner sugar mints" this morning. Home Medications Home Medications Medication Instructions Recorded Confirmed Type levothyroxine 75 mcg PO QAM 12/16/17 10/29/18 History atorvastatin 80 mg PO HS 07/30/18 10/29/18 History metformin 500 mg PO BIDM 07/30/18 10/29/18 History aspirin-dipyridamole 1 cap PO BID 10/29/18 10/29/18 History insulin aspart U-100 [Novolog 0 unit SUBCUT UD 10/29/18 10/29/18 History Flexpen U-100 Insulin] lisinopril 2.5 mg PO QAM 10/29/18 10/29/18 History prednisone 2.5 mg PO QAM 10/29/18 10/29/18 History prednisone 10 mg PO QAM 10/29/18 10/29/18 History Allergies Allergy/AdvReac Type Severity Reaction Status Date / Time melon Allergy Severe Difficulty Verified 10/29/18 10:44 Breathing Past Med/Surg History Family History Other Family history non-contributory Social History Preferred Language: Azeri Communication Ability: Effective Hearing Ability: Use of Hearing Aid 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 and A total of 10 systems reviewed and were otherwise negative Physical Exam Vital Signs Vital Signs - 24 hr 10/29/18 09:10 10/29/18 09:28 10/29/18 09:30 Temperature 36.7 C Temperature Source Oral Sepsis Recent Fever Within 48 Hours No Sepsis New/Unexplained Change in Mental Status No Sepsis Action Taken by Nursing No Action Required Pulse Rate 69 71 59 L Pulse Rate [Right Finger] Pulse Rate from SpO2 Sensor Respiratory Rate 20 16 23 Respiratory Effort / Characteristics Non-Labored Respiratory Depth Normal Blood Pressure 196/75 H Blood Pressure [Left Arm] Blood Pressure Mean 115 Blood Pressure Mean [Left Arm] Blood Pressure Position Sitting Pulse Oximetry 98 Oxygen Delivery Method Room Air 10/29/18 09:31 10/29/18 09:40 10/29/18 09:43 Temperature Temperature Source Sepsis Recent Fever Within 48 Hours Sepsis New/Unexplained Change in Mental Status Sepsis Action Taken by Nursing Pulse Rate 58 L 64 Pulse Rate [Right Finger] Pulse Rate from SpO2 Sensor 64 Respiratory Rate 18 20 Respiratory Effort / Characteristics Respiratory Depth Blood Pressure 173/73 H Blood Pressure [Left Arm] Blood Pressure Mean 106 Blood Pressure Mean [Left Arm] Blood Pressure Position Pulse Oximetry 97 99 Oxygen Delivery Method Room Air 10/29/18 09:47 10/29/18 09:58 10/29/18 10:00 Temperature Temperature Source Sepsis Recent Fever Within 48 Hours Sepsis New/Unexplained Change in Mental Status Sepsis Action Taken by Nursing Pulse Rate 59 L 58 L Pulse Rate [Right Finger] 61 Pulse Rate from SpO2 Sensor 60 Respiratory Rate 20 14 20 Respiratory Effort / Characteristics Respiratory Depth Blood Pressure 171/71 H Blood Pressure [Left Arm] 173/73 H Blood Pressure Mean 104 Blood Pressure Mean [Left Arm] 106 Blood Pressure Position Pulse Oximetry 98 99 Oxygen Delivery Method Room Air 10/29/18 10:10 10/29/18 10:20 10/29/18 10:30 Temperature Temperature Source Sepsis Recent Fever Within 48 Hours Sepsis New/Unexplained Change in Mental Status Sepsis Action Taken by Nursing Pulse Rate 59 L 56 L 62 Pulse Rate [Right Finger] 57 L Pulse Rate from SpO2 Sensor 58 L 56 L 59 L Respiratory Rate 21 24 21 Respiratory Effort / Characteristics Respiratory Depth Blood Pressure 172/78 H Blood Pressure [Left Arm] 171/71 H Blood Pressure Mean 109 Blood Pressure Mean [Left Arm] 104 Blood Pressure Position Pulse Oximetry 97 99 96 Oxygen Delivery Method Room Air 10/29/18 10:40 10/29/18 10:50 10/29/18 11:00 Temperature Temperature Source Sepsis Recent Fever Within 48 Hours Sepsis New/Unexplained Change in Mental Status Sepsis Action Taken by Nursing Pulse Rate 58 L 59 L 58 L Pulse Rate [Right Finger] Pulse Rate from SpO2 Sensor 58 L Respiratory Rate 22 18 20 Respiratory Effort / Characteristics Respiratory Depth Blood Pressure 172/77 H Blood Pressure [Left Arm] Blood Pressure Mean 108 Blood Pressure Mean [Left Arm] Blood Pressure Position Pulse Oximetry 96 Oxygen Delivery Method 10/29/18 11:10 10/29/18 11:20 10/29/18 11:30 Temperature Temperature Source Sepsis Recent Fever Within 48 Hours Sepsis New/Unexplained Change in Mental Status Sepsis Action Taken by Nursing Pulse Rate 69 59 L 59 L Pulse Rate [Right Finger] Pulse Rate from SpO2 Sensor 61 54 L Respiratory Rate 22 22 23 Respiratory Effort / Characteristics Respiratory Depth Blood Pressure 165/70 H Blood Pressure [Left Arm] Blood Pressure Mean 101 Blood Pressure Mean [Left Arm] Blood Pressure Position Pulse Oximetry 98 98 Oxygen Delivery Method GENERAL: She is oriented to person, place, and time. She appears well-developed and well-nourished. She does not appear distressed. HENT: Exam performed. - Head: Normocephalic and atraumatic. - Right Ear: External ear normal. No mastoid tenderness. - Left Ear: External ear normal. No mastoid tenderness. - Mouth/Throat: The oropharynx is clear and moist. No trismus in the jaw. No dental abscesses or uvula swelling. No oropharyngeal exudate or tonsillar abscesses. EYES: Conjunctivae and EOM are normal. Pupils are equal, round, and reactive to light. Right eye exhibits no discharge. Left eye exhibits no discharge. No scleral icterus. NECK: Normal range of motion. Neck supple. No JVD present. No spinous process tenderness present. No carotid bruit present. No rigidity. No tracheal deviation and normal range of motion present. No Brudzinski's sign and no Kernig's sign noted. CV: Normal rate, regular rhythm, normal heart sounds and intact distal pulses. There is no peripheral edema. Palpable radial pulses bue. PULM/CHEST: Effort normal and breath sounds normal. No respiratory distress. No stridor. She has no wheezes. She has no rales. Chest Wall: She exhibits no tenderness. ABD: The abdomen is soft. Bowel sounds are normal. She has no distension. No mass is present. There is no tenderness. There is no rebound, no guarding, no Stock's sign and no tenderness at McBurney's point. Rovsig negative MUSC/SKEL: Normal range of motion. There is no peripheral edema, tenderness or deformity. LYMPH: No cervical adenopathy. NEURO: She is alert and oriented to person, place, and time. She has normal strength. No cranial nerve deficit or sensory deficit. Coordination and gait normal. GCS eye subscore is 4. GCS verbal subscore is 5. GCS motor subscore is 6. cerbellar tests wnl. NHISS: 0. SKIN: Skin is warm and dry. She is not diaphoretic. PSYCH: She has a normal mood and affect. Her behavior is normal. Judgment and thought content normal. Course 0920:The patient was evaluated in room C03. A complete history and physical examination was performed. Patient was seen immediately. Concern for TIA versus stroke. No stroke alert was called as she woke up with her symptoms which have since resolved. Patient is not a TPA candidate. 1024: Vital signs are stable. CT showed no evidence of stroke. Her labs showed a magnesium level of 0.4. After magnesium is replaced, potassium will be replaced. The patient will be accepted into Dr. Graves's service. Consultations Consultation #1: I discussed the patient's case with Dr. Graves [facility], who will evaluate the patient for further management and care. Time: 10:24 Administered Medications Dipyridamole/Aspirin (Aggrenox 200mg/25mg) 1 cap PO BID [facility] Stop: 11/28/18 13:15 Last Admin: 10/29/18 15:06 Dose: 1 cap Documented by: [id number] Enoxaparin Sodium (Lovenox) 40 mg SC Q24H [facility] Stop: 11/28/18 13:59 Last Admin: 10/29/18 15:07 Dose: 40 mg Documented by: [id number] Gadobutrol (Gadavist 65ml) 5 ml IV ONCE PRN PRN Reason: Interaction Checking Stop: 11/02/18 14:40 Last Admin: 10/29/18 14:41 Dose: 5 ml Documented by: [id number] Insulin Aspart (Novolog Flexpen) 0 units SC ACHS [facility] Stop: 11/28/18 16:29 Last Admin: 10/29/18 15:09 Dose: Not Given Documented by: [id number] Cosigned by: [id number] Levothyroxine Sodium (Synthroid) 75 mcg PO DAILYBB [facility] Stop: 11/28/18 13:59 Last Admin: 10/29/18 15:06 Dose: 75 mcg Documented by: [id number] Discontinued Medications Calcium Carbonate (Os-Agustín 500) 1,250 mg PO ONCE ONE Stop: 10/29/18 14:16 Last Admin: 10/29/18 15:06 Dose: 1,250 mg Documented by: [id number] Magnesium Sulfate/Dextrose (Magnesium Sulfate / D5w) 1 gm in 100 mls @ 100 mls/hr IV Q1H [facility] Stop: 10/29/18 12:14 Last Infusion: 10/29/18 12:33 Dose: 0 mls/hr Documented by: [id number] Admin: 10/29/18 11:38 Dose: 100 mls/hr Documented by: [id number] Infusion: 10/29/18 11:38 Dose: 0 mls/hr Documented by: [id number] Admin: 10/29/18 10:29 Dose: 100 mls/hr Documented by: [id number] Potassium Chloride (Klor-Con M20) 20 meq PO NOW STA Stop: 10/29/18 13:26 Last Admin: 10/29/18 15:06 Dose: 20 meq Documented by: [id number] Prednisone (Prednisone) 60 mg PO ONCE ONE Stop: 10/29/18 13:17 Last Admin: 10/29/18 15:06 Dose: 60 mg Documented by: [id number] Medical Decision Making Medical Records Attestation: I reviewed the patient's medical records. Home Medications Current Medication List: was personally reviewed by me Laboratory Data Attestation: I reviewed the patient's lab results. Result diagrams: 10/29/18 09:35 10/29/18 09:35 Lab Results 10/29/18 10/29/18 10/29/18 Range/Units 09:27 09:35 09:35 WBC 8.05 (4.8-10.8) K/uL RBC 3.80 L (4.2-5.4) M/uL Hgb 11.0 L (12.0-16.0) g/dL Hct 34.3 L (37-47) % MCV 90.3 (80-100) fL MCH 28.9 (25-34) pg MCHC 32.1 (32-36) g/dL RDW Std Deviation 51.7 H (36.4-46.3) fL RDW Coeff of Tammie 15.6 H (11.5-14.5) % Plt Count 164 (130-400) K/uL MPV 11.3 H (7.4-10.4) fL Immature Gran % (Auto) 0.9 % Neut % (Auto) 60.0 % Lymph % (Auto) 29.7 % [place] % (Auto) 8.3 % Eos % (Auto) 0.9 % Baso % (Auto) 0.2 % Immature Gran # (Auto) 0.07 H (0.00-0.02) K/uL Neut # (Auto) 4.83 (1.4-6.5) K/uL Lymph # (Auto) 2.39 (1.2-3.4) K/uL [place] # (Auto) 0.67 H (0.11-0.59) K/uL Eos # (Auto) 0.07 (0-0.5) K/uL Baso # (Auto) 0.02 (0-0.2) K/uL PT 12.9 H (9.0-12.0) Seconds INR 1.3 H (0.9-1.1) APTT 23.3 (21.0-31.0) Seconds PTT Ratio 0.9 Sodium (136-145) mmol/L Potassium (3.5-5.1) mmol/L Chloride (98-107) mmol/L Carbon Dioxide (21-32) mmol/L Anion Gap (3-11) BUN (7-18) mg/dl Creatinine (0.6-1.2) mg/dl Est Cr Clr Drug Dosing ml/min Est GFR ( Amer) Est GFR (Non-Af Amer) BUN/Creatinine Ratio (10-20) Glucose (70-99) mg/dl POC Glucose 102 H (70-99) Calcium (8.5-10.1) mg/dl Magnesium (1.8-2.4) mg/dl Total Bilirubin (0.2-1) mg/dl AST (15-37) U/L ALT (12-78) U/L Alkaline Phosphatase (45-117) U/L Troponin I (0-0.045) ng/ml Total Protein (6.4-8.2) gm/dl Albumin (3.4-5.0) gm/dl Globulin (2.5-4.0) gm/dl Albumin/Globulin Ratio (0.9-2) 10/29/18 Range/Units 09:35 WBC (4.8-10.8) K/uL RBC (4.2-5.4) M/uL Hgb (12.0-16.0) g/dL Hct (37-47) % MCV (80-100) fL MCH (25-34) pg MCHC (32-36) g/dL RDW Std Deviation (36.4-46.3) fL RDW Coeff of Tammie (11.5-14.5) % Plt Count (130-400) K/uL MPV (7.4-10.4) fL Immature Gran % (Auto) % Neut % (Auto) % Lymph % (Auto) % [place] % (Auto) % Eos % (Auto) % Baso % (Auto) % Immature Gran # (Auto) (0.00-0.02) K/uL Neut # (Auto) (1.4-6.5) K/uL Lymph # (Auto) (1.2-3.4) K/uL [place] # (Auto) (0.11-0.59) K/uL Eos # (Auto) (0-0.5) K/uL Baso # (Auto) (0-0.2) K/uL PT (9.0-12.0) Seconds INR (0.9-1.1) APTT (21.0-31.0) Seconds PTT Ratio Sodium 145 (136-145) mmol/L Potassium 3.0 L (3.5-5.1) mmol/L Chloride 107 (98-107) mmol/L Carbon Dioxide 31 (21-32) mmol/L Anion Gap 7.0 (3-11) BUN 11 (7-18) mg/dl Creatinine 0.82 (0.6-1.2) mg/dl Est Cr Clr Drug Dosing 39.2 ml/min Est GFR ( Amer) 76.7 Est GFR (Non-Af Amer) 66.2 BUN/Creatinine Ratio 13.3 (10-20) Glucose 109 H (70-99) mg/dl POC Glucose (70-99) Calcium 7.2 L (8.5-10.1) mg/dl Magnesium 0.4 L* (1.8-2.4) mg/dl Total Bilirubin 0.7 (0.2-1) mg/dl AST 21 (15-37) U/L ALT 18 (12-78) U/L Alkaline Phosphatase 51 (45-117) U/L Troponin I < 0.015 (0-0.045) ng/ml Total Protein 6.0 L (6.4-8.2) gm/dl Albumin 2.9 L (3.4-5.0) gm/dl Globulin 3.1 (2.5-4.0) gm/dl Albumin/Globulin Ratio 0.9 (0.9-2) Imaging Data Radiologist's Impression: Radiology results as stated below per my review and the radiologist's interpretation: CT SCAN OF THE BRAIN WITHOUT IV CONTRAST CLINICAL HISTORY: Strokelike symptoms. COMPARISON STUDY: CT of the brain dated 07/31/2018. TECHNIQUE: Unenhanced axial CT scan of the brain is performed from the vertex to the skull base. A dose lowering technique was utilized adhering to the principles of ALARA. CT DOSE: 537.48 mGy.cm FINDINGS: Brain parenchyma: There are age-related involutional changes noting moderate subcortical and periventricular microangiopathic change. There is no hemorrhage, mass effect, or evidence of acute territorial ischemia by CT criteria. Canales- white matter differentiation is preserved. No extra-axial fluid collection is se en. Ventricles, sulci, cisterns: Prominent secondary to involutional change. Intracranial vasculature: There is atherosclerotic calcification of the cavernous carotid arteries. Calvarium: Unremarkable. Sinuses and mastoids: The visualized paranasal sinuses are clear. The mastoid air cells are well pneumatized. Orbits: The bony orbits are grossly intact. There are bilateral ocular lens implants. IMPRESSION: There is no hemorrhage, mass effect, or evidence of acute territorial ischemia by CT criteria. Electronically signed by: Yuniel Dejesus M.D. 10/29/2018 9:57 AM SINGLE VIEW CHEST CLINICAL HISTORY: Strokelike symptoms. FINDINGS: An AP, portable, upright chest radiograph is compared to study dated 07/31/2018 and correlated with chest CT dated 06/27/2006. The cardiomediastinal silhouette is unremarkable noting atherosclerotic calcification of the thoracic aorta. Chronic interstitial thickening is similar to previous. The lungs and pleural spaces are clear. Apical scarring is observed. No pneumothorax is seen. The skeletal structures are osteopenic. The bony thorax is grossly intact. IMPRESSION: No active disease in the chest. Electronically signed by: Yuniel Dejessu M.D. 10/29/2018 10:29 AM ECG Data Attestation: I personally reviewed and interpreted this ECG as follows: Indication: other (neurological symptoms) Rate (beats per minute): 62 Rhythm: sinus rhythm Findings: + other (IN, QRS, QTC within normal limits); no ST depression, no ST elevation and no acute ischemic change Blood Pressure Blood Pressure Findings: Elevated blood pressure Blood Pressure Disposition: further management by hospitalist PEDRO Narrative 0920:The patient was evaluated in room C03. A complete history and physical examination was performed. Patient was seen immediately. Concern for TIA versus stroke. No stroke alert was called as she woke up with her symptoms which have since resolved. Patient is not a TPA candidate. 1024: Vital signs are stable. CT showed no evidence of stroke. Her labs showed a magnesium level of 0.4. After magnesium is replaced, potassium will be replaced. The patient will be accepted into Dr. Graves's service. Impression & Plan Hypomagnesemia, Hypokalemia Discharge Plan Visit Data *Final* Discharge Date/Time: 10/29/18 12:29 Chief Complaint: Neuro Symptoms/Deficit Stated Complaint: LT ARM NOT WORKING, HX STROKE ED Provider: Lalo Farooq Discharge Problem: Hypomagnesemia, Hypokalemia Patient Disposition: Admitted As Inpatient Discharge Instructions Interventions: ED Discharge Assessment Last Done: 10/29/18 12:29 The scribe's documentation has been prepared under my direction and personally reviewed by me in its entirety. I confirm that the note above accurately reflects all work, treatment, procedures, and medical decision making performed by me.
--- NOTE | 2018-10-29 15:56 | Magnetic Resonance Report ---
MRI OF THE BRAIN COMBO CLINICAL HISTORY: Strokelike symptoms. Dizziness. COMPARISON STUDY: CT of the brain dated 10/29/2018. MRI of the brain dated 12/16/2017. TECHNIQUE: MRI of the brain was performed utilizing various T1 and T2-weighted sequences in the axial , sagittal, and coronal planes. Contrast-enhanced sequences were acquired following the administratio n of 5 cc of Gadavist. FINDINGS: Brain parenchyma: There is age-related involutional change noting advanced subcortical and periventri cular microangiopathic disease. There is no hemorrhage or mass effect. There is significant T1 hyperi ntense cortical thickening seen throughout the right MCA territory distribution. This measures up to 4 mm in thickness, and also shows faint restricted diffusion throughout this region that is greatest in the posterior parietal region. The appearance is typical for laminar necrosis, and there is likely a component of acute subacute ischemia within this region. No additional foci of restricted diffusio n are identified. No enhancing mass lesion is identified on the postcontrast images. No extra-axial f luid collection is seen. The cerebellar tonsils are normal in configuration. Ventricles, sulci, and cisterns: Prominent secondary to involutional change. Pituitary and sella: Unremarkable. Intracranial vasculature: Normal flow voids are maintained at the skull base. Orbits: The bony orbits are grossly intact. Orbital contents are normal in appearance noting bilatera l ocular lens implants. Sinuses and mastoids: Clear. Calvarium: Unremarkable. Cervical cord: Partially visualized cervical spinal cord is normal in morphology and signal intensity . IMPRESSION: 1. 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 2. There is a faint restricted diffusion throughout the laminar necrosis, greatest in the right poste rior parietal region which may represent a component of superimposed acute to subacute ischemia. 3. There is no hemorrhage or mass effect. 4. No enhancing lesion is identified. Electronically signed by: Yuniel Dejesus M.D. 10/29/2018 3:55 PM
[2018-10-29] MEDS ORDERED: OPTIRAY 320 125ml IV PRN (18:18)
--- NOTE | 2018-10-29 18:49 | CT Scan Report ---
CT ANGIOGRAM OF THE BRAIN; CT ANGIOGRAM OF THE NECK CLINICAL HISTORY: Strokelike symptoms. COMPARISON STUDY: Unenhanced CT and MRI of the brain performed the same day 10/29/2018. CT angiogram o f the head and neck dated 07/31/2018. TECHNIQUE: Following the IV administration of 119 of Optiray 320, CT angiogram of the head and neck w as performed from the aortic arch to the vertex. Images are reviewed in the axial, sagittal, and justina nal planes. 3-D MIPS images are created and assessed. IV contrast was administered without complicati on. All measurements were calculated based on NASCET criteria. A dose lowering technique was utilize d adhering to the principles of ALARA. CT DOSE: 409.69 mGy.cm FINDINGS: Brain parenchyma: There is age-related involutional change noting advanced subcortical and periventri cular microangiopathic disease.. There is no hemorrhage or mass effect. There is no evidence of enhan cing mass lesion on the angiogram phase images. The ventricles, sulci, and cisterns are prominent sec ondary to involutional change. There is asymmetric volume loss and diminished attenuation throughout the right MCA territory as compared to left. Canales-white differentiation is maintained throughout the majority of the MCA territory. Subtle loss of canales-white differentiation is noted within the right pa rietal lobe. No extra-axial fluid collection is seen. Thoracic aorta: There is mild atherosclerotic calcification of the thoracic aorta. Visualized portion s of the thoracic aorta are normal in caliber. The aortic arch demonstrates standard 3-vessel anatomy . Right carotid arterial system: The right common carotid artery is widely patent, as are the right int ernal and external carotid arteries. Left carotid arterial system: The left common carotid artery is widely patent, as are the left international trade specialist al and external carotid arteries. Vertebral arteries: The right vertebral artery is widely patent and dominant. The proximal left verte bral artery is thrombosed, with reconstitution of flow at the level of C6. Thready flow is seen withi n the diminutive left mid to distal vertebral artery. Subclavian arteries: Widely patent bilaterally. Intracranial vasculature: There is atherosclerotic calcification of the cavernous carotid arteries. T he internal carotid arteries are patent at the skull base, as are the anterior cerebral arteries. Aga in seen is focal vessel cut off of the distal M1 segment of the right middle cerebral artery near the bifurcation there is opacification of several peripheral right-sided MCA branches, likely via collat eral flow. Again seen is focal high-grade stenosis within the M2 segment of the right middle cerebral artery. There is mild focal stenosis within the left M1 segment. The right vertebral artery and basi lar artery are widely patent. The right vertebral artery is dominant. Thready flow is seen within the intracranial portions of the diminutive left vertebral artery. There is no aneurysm identified. Jugular veins: Patent bilaterally. Dural sinuses: Patent. Lung apices: Partially visualized upper lobe lung parenchyma appears clear. Soft tissues: The visualized pharyngeal soft tissues are normal in appearance noting angiographic pha se technique. The oropharyngeal airway appears widely patent. The salivary and thyroid glands are nor mal in appearance. No cervical lymphadenopathy is seen. Orbits: The bony orbits are intact. Orbital contents are normal in appearance noting bilateral ocular lens implants. Skeletal structures: The skeletal structures are osteopenic. The calvarium appears intact. The cervic al spine is maintained noting multilevel spondylosis. Sinuses and mastoids: The paranasal sinuses are clear. The mastoid air cells are well pneumatized. IMPRESSION: 1. There is unchanged appearance of complete occlusion of the distal M1 segment of the right middle c erebral artery. 2. The peripheral branches of the right MCA are opacified, likely via collateral flow. 3. Mild stenosis is again seen within the M1 segment of the left middle cerebral artery. 4. The internal carotid arteries in the neck as well as the right vertebral artery are widely patent. 5. 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 6. There is asymmetric volume loss and diminished attenuation throughout the right MCA territory, lik desire related to previous infarct. Canales-white matter differentiation is largely maintained. 7. There is subtle loss of canales-white matter differentiation within the right parietal lobe, likely r epresenting superimposed acute to subacute ischemia. This was better characterized on today's MRI. 8. No hemorrhage or mass effect is identified. Electronically signed by: Yuniel Dejesus M.D. 10/29/2018 6:46 PM
[2018-10-29] MEDS: ATORVASTATIN 40 MG TAB PO SCH (20:52)
[2018-10-29] MEDS ORDERED: INSULIN GLARGINE SOLOSTAR 100 UNITS/ML 3 ML PEN SC ONE (21:09)
[2018-10-30] MEDS: LEVOTHYROXINE SODIUM 75 MCG TABLET PO SCH (05:58)
[2018-10-30 07:56] LABS: Hematocrit (blood only) 31.8 % (37-47); Hemoglobin 10.5 g/dL (12.0-16.0); Immature Granulocytes # (auto) 0.05 K/uL (0.00-0.02); Immature Granulocytes % (auto) 0.7 %; Lymphocytes # (auto) 1.03 K/uL (1.2-3.4); Lymphocytes % (auto) 15.1 %; Mean Corpuscular Hemoglobin 29.2 pg (25-34); Mean Corpuscular Volume 88.6 fL (80-100); Mean Platelet Volume 11.1 fL (7.4-10.4); Monocytes # (auto) 0.43 K/uL (0.11-0.59); Monocytes % (auto) 6.3 %; Neutrophils # (auto) 5.31 K/uL (1.4-6.5); Neutrophils % (auto) 77.9 %; Platelet Count 176 K/uL (130-400); RDW Coefficient of Variation 15.4 % (11.5-14.5); RDW Standard Deviation 49.7 fL (36.4-46.3); Red Blood Count 3.59 M/uL (4.2-5.4); White Blood Count 6.82 K/uL (4.8-10.8)
[2018-10-30] MEDS: predniSONE 10 MG TABLET PO SCH (08:06)
[2018-10-30] MEDS: DIPYRIDAMOLE/ASPIRIN CAP PO SCH ×2 (08:06→21:10)
[2018-10-30] MEDS: ASPIRIN 81 MG ECTAB PO SCH (08:07)
[2018-10-30] MEDS: predniSONE 2.5 MG TAB PO SCH (08:07)
[2018-10-30] MEDS: INSULIN ASPART 100 UNITS/ML 3 ML PEN SC SCH ×4 (08:09→21:10)
[2018-10-30 08:24] LABS: Estimated Average Glucose 131 mg/dl; Hemoglobin A1C 6.2 % (4.5-5.6)
[2018-10-30 09:34] LABS: BUN Creatinine Ratio 13.8 (10-20); Calcium 7.3 mg/dl (8.5-10.1); Creatinine Clr Calc Pharmacy 43.5 ml/min; Est GFR (African American) 86.8; Est GFR (Non-African American) 74.9; Potassium 3.6 mmol/L (3.5-5.1)
[2018-10-30] MEDS: ENOXAPARIN INJ 40 MG/0.4 ML SYR SC SCH (13:17)
[2018-10-30] MEDS ORDERED: MAGNESIUM SULFATE / D5W 1 GM/100 ML BAG IV ONE (14:15)
--- NOTE | 2018-10-30 15:47 | Neurology Consultation ---
Date of Consultation October 30, 2018 Assessment & Plan (1) Weakness of left hand: 1. MRI brain- laminar necrosis R MCA territory/ right posterior parietal acute/subacute ischemia 2. CTA head/neck- unchanged from previous study 3. Temporal arteritis = [place] [facility] [place] started [place] currently on a wean directed by PCP 4. continue aggrenox 1 cap BID - switched from plavix due to plt therapy failure 5. PT/OT speech for discharge needs 6. could add aspirin 81 mg to medications- possibly an extension of previous stroke 7. would avoid hypotension 8. optimize DM, HLD LDL<70 follow up in neurology 4-6 weeks with Melina Paige PAC schedule Supervising Physician Co-Signing Physician Notes I have seen and discussed above patient with Dr Melina Pathak, neurology Pt seen and examined. hx reviewed. Mult TIA and strokes in R MCA distribution (failed Plavix)with R mca occlusion and distal reconstitution. R MCA infarct in July prompting xfer to [facility]. pt gave a hx of several months prior to stroke with jara, jaw claudication, wt loss, vis sx. Had a positive R TA biopsy there and was started on tapering prednisone. Pt felt unwell on high doses of prednisone. Unclear to me whether [facility] felt the stroke was arteritic. Jara and systemic sx have not recurred on Prednisone 12.5 mg/d. Yesterday L hand weakness. MRI shows possible extension of R mca infarct. Mult metabolic abnormalities noted incl uding hypocalcemia and hypomagnesemia. On Aggrenox. exam notable for healing R TA scar. Neg tenderness on left. Mild weakness L hand with decreased CRUZ. No dysprxia. Imp extension of R mca infarct. No obvious etiol such as hypoperfusion. Would like to check lab for asa resistance, but not available. I would rec addition of asa 81 mg to aggrenox. It is not clear to me that the infarct is related to TA. Discussed with pt empirically escalation prednisone and she is disinclined to do so. Will hold on that, but if recurrent ischemia or recurrenty headache would do so. Cerebral angiography might be of benefit in terms of dx vasculitis, but can be negative even in setting of vasculitis. Will follow with you.IRASEMA Pathak MD History of Present Illness Reason for Consultation: R MCA Stroke, Left hand weakness Requesting Physician: Mg Moreira MD Attending Physician: Mg Moreira MD History of Present Illness Jennifer is a 83 year old woman with a PMH DM 2, TIA in 2017, CVA in July 2018, breast cancer 2015 status post left breast lumpectomy, hypertension who presented to the ER with left hand weakness on waking up this morning. She had no symptoms prior to going to bed yesterday night and woke with poor sensation in her hand and difficulty coordinating movements with the hands such as picking up objects or dressing herself. At baseline, patient ambulates by herself without aid and able to perform most of her ADLs independently. Uses hearing aid for chronic hearing deficit. 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 She reported being diagnosed of GCA and started on prednisone, She was also switched from plavix to aggrenox for a report plavix failure. She thinks her hand is somewhat better but it is still not back to normal. denies CP, SOB, abdominal pain, slurred speech, vision issues, bowel or bladder issues, falls, swallowing issues. Allergies Allergy/AdvReac Type Severity Reaction Status Date / Time melon Allergy Severe Difficulty Verified 10/29/18 10:44 Breathing Home Medications Home Medications Medication Instructions Recorded Confirmed Type levothyroxine 75 mcg PO QAM 12/16/17 10/29/18 History atorvastatin 80 mg PO HS 07/30/18 10/29/18 History metformin 500 mg PO BIDM 07/30/18 10/29/18 History aspirin-dipyridamole 1 cap PO BID 10/29/18 10/29/18 History insulin aspart U-100 [Novolog 0 unit SUBCUT UD 10/29/18 10/29/18 History Flexpen U-100 Insulin] lisinopril 2.5 mg PO QAM 10/29/18 10/29/18 History prednisone 2.5 mg PO QAM 10/29/18 10/29/18 History prednisone 10 mg PO QAM 10/29/18 10/29/18 History Patient History Family History Other Family history non-contributory Social History Preferred Language: [place] Communication Ability: Effective Hearing Ability: Use of Hearing Aid Sand Shoveler Required: No Beliefs That Will Affect Care: None marital status: Current Living Situation: Spouse Other Information That Helps Us Care for You: No Feels Safe at Home: Yes Safety Concerns: Feels Safe At This Time Smoking Status: Never smoker Second Hand Exposure: Yes (60 years in past) ; Hx Alcohol Use: No Hx Substance Use: No Physical Exam Physical Exam: Physical Exam: Constitutional: appearance nourished, healthy and normal Ears, Nose, Mouth and Throat: mucous membranes moist, no injection and skin normal, eyes normal Cardiovascular: normal S-1 and S-2 and regular rate and rhythm Respiratory: clear to auscultation (CTA) and no rales, ronchi or wheeze Musculoskeletal: no peripheral edema and good distal pulses Skin: no stigmata of neurocutaneous disease noted and normal and intact Eyes: extraocular muscles intact (EOMI) and pupils equal, round and reactive to light (PERRL) NEUROLOGIC EXAMINATION: Mental status: Alert and interactive Oriented to full date and location Oriented to person Speech fluent with no evidence of aphasia Cranial Nerves smile eye brow raise symmetric Reflexes: Deep tendon reflexes were symmetrical and graded 2/5. Sensory: no deficit to light or cool touch Coordination: finger to nose left some dysmetric Gait/Stance: Posture normal. able to stand without assistance Motor: Negative for pronator drift of out stretched arms with eyes closed. 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 hip flex 5/5 bilaterally Results & Data Vital Signs (Past 12 Hours) Vital Signs Temp Pulse Pulse Resp BP Pulse Ox 10/30/18 10:39 36.4 C L 66 20 168/74 H 98 10/30/18 08:00 57 L 10/30/18 06:56 36.7 C 60 16 156/74 H 96 Laboratory Results Abnormal lab results 10/29/18 10/29/18 10/29/18 Range/Units 17:00 20:49 23:20 RBC (4.2-5.4) M/uL Hgb (12.0-16.0) g/dL Hct (37-47) % RDW Std Deviation (36.4-46.3) fL RDW Coeff of Tammie (11.5-14.5) % MPV (7.4-10.4) fL Immature Gran # (Auto) (0.00-0.02) K/uL Lymph # (Auto) (1.2-3.4) K/uL Glucose (70-99) mg/dl POC Glucose 114 H 186 H 190 H (70-99) Fasting Glucose (70-99) mg/dl Hemoglobin A1c (4.5-5.6) % Calcium (8.5-10.1) mg/dl Magnesium (1.8-2.4) mg/dl 10/30/18 10/30/18 10/30/18 Range/Units 07:04 07:37 07:37 RBC 3.59 L (4.2-5.4) M/uL Hgb 10.5 L (12.0-16.0) g/dL Hct 31.8 L (37-47) % RDW Std Deviation 49.7 H (36.4-46.3) fL RDW Coeff of Tammie 15.4 H (11.5-14.5) % MPV 11.1 H (7.4-10.4) fL Immature Gran # (Auto) 0.05 H (0.00-0.02) K/uL Lymph # (Auto) 1.03 L (1.2-3.4) K/uL Glucose 109 H (70-99) mg/dl POC Glucose 125 H (70-99) Fasting Glucose 109 H (70-99) mg/dl Hemoglobin A1c (4.5-5.6) % Calcium 7.3 L (8.5-10.1) mg/dl Magnesium 1.0 L (1.8-2.4) mg/dl 10/30/18 10/30/18 Range/Units 07:37 11:18 RBC (4.2-5.4) M/uL Hgb (12.0-16.0) g/dL Hct (37-47) % RDW Std Deviation (36.4-46.3) fL RDW Coeff of Tammie (11.5-14.5) % MPV (7.4-10.4) fL Immature Gran # (Auto) (0.00-0.02) K/uL Lymph # (Auto) (1.2-3.4) K/uL Glucose (70-99) mg/dl POC Glucose 212 H (70-99) Fasting Glucose (70-99) mg/dl Hemoglobin A1c 6.2 H (4.5-5.6) % Calcium (8.5-10.1) mg/dl Magnesium (1.8-2.4) mg/dl Diagnostic Findings MRI brain-There is significant laminar necrosis throughout the right MCA territory. There is a faint restricted diffusion throughout the laminar necrosis, greatest in the right posterior parietal region which may represent a component of superimposed acute to subacute ischemia. There is no hemorrhage or mass effect. No enhancing lesion is identified. CTA head and neck-There is unchanged appearance of complete occlusion of the distal M1 segment of the right middle cerebral artery. The peripheral branches of the right MCA are opacified, likely via collateral flow. Mild stenosis is again seen within the M1 segment of the left middle cerebral artery. The internal carotid arteries in the neck as well as the right vertebral artery are widely patent. 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 There is asymmetric volume loss and diminished attenuation throughout the right MCA territory, likely related to previous infarct. Canales-white matter differentiation is largely maintained. There is subtle loss of canales-white matter differentiation within the right parietal lobe, likely representing superimposed acute to subacute ischemia. This was better characterized on today's MRI. No hemorrhage or mass effect is identified.
[2018-10-30] MEDS: ATORVASTATIN 40 MG TAB PO SCH (21:10)
--- NOTE | 2018-10-30 21:43 | Hospitalist Progress Note ---
Date of Service October 30, 2018 Assessment & Plan (1) Stroke: History of stroke in July 2018 with imaging demonstrating suspected vasculitis in the right MCA territory. Transferred to [facility]. Biopsy there reportedly showed giant cell arteritis; patient has been on tapering dose of prednisone. Presented to ED with new onset weakness of left hand. CT without contrast showed age-related involutional changes, small vessel ischemic disease, no acute findings. CT angiogram of cervical and intracranial vessels showed complete occlusion of the distal M1 segment of the right MCA (unchanged compared to July), opacification of peripheral branches of right MCA via collateral flow, mild stenosis within the M1 segment of the left MCA as before, complete occlusion of the left vertebral artery as noted before, asymmetric volume loss and diminished attenuation throughout the right MCA territory thought to be related to previous ischemic event, subtle loss of browne-white matter differentiation within the right parietal lobe possibly representing superimposed acute to subacute ischemia, no hemorrhage. 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 Neurology consulted. Antiplatelet therapy with dipyridamole and aspirin recommended. Management of giant cell arteritis as discussed below. PT/OT. (2) Giant cell arteritis: Diagnosed with giant cell arteritis at [facility] in July 2018. Vasculitis apparently was the underlying cause of her cerebrovascular event in July. Will try to obtain old records. Patient has been on a tapering dose of prednisone, currently down to 12.5 mg daily. ESR 4. Continue prednisone. (3) HTN (hypertension): Allow permissive hypertension in light of cerebrovascular disease and apparent new event. (4) Hypokalemia: Serum potassium at time of admission 3.0. Received replacement. Potassium today = 3.6. Follow. (5) Hypomagnesemia: Serum magnesium 0.4 at time of admission. Received replacement. Magnesium today = 1.0. Continue replacement. Follow. (6) Hypocalcemia: Serum calcium at time of admission was 7.2 with an albumin of 2.9 and a calculated corrected calcium of 8.4. Check ionized calcium with next labs. (7) CKD (chronic kidney disease) stage 3, GFR 30-59 ml/min: History of chronic kidney disease stage III. Serum creatinine today = 0.74. Follow. (8) Type 2 diabetes mellitus: Diabetes mellitus type 2, usually managed with metformin and NovoLog sliding scale. Hemoglobin A1c 6.2. Hold metformin during hospital stay. Insulin coverage as necessary. (9) Dyslipidemia: LDL-C = 55. Continue high intensity lipid-lowering therapy with atorvastatin 80 mg daily. (10) Hypothyroidism: Continue levothyroxine. (11) DVT prophylaxis: SQ enoxaparin. Ambulate. (12) Discharge planning issues: Anticipated discharge to home. Family Medicine follow-up with Dr. Rider. Neurology follow-up with Melina Paige PA-C. Subjective Recheck for multiple problems. Patient seen in their room around 1430. Family visiting. Admitted yesterday with weakness of her left hand. Hand weakness improved, but still has difficulty picking up objects. No headache. No visual changes. No speech abnormalities. No weakness of lower extremities. No difficulty with gait. Review of Systems: Constitutional- no fever. Cardiac- no chest pain. Pulmonary- no cough or SOB. GI- no nausea, vomiting, diarrhea, melena, hematochezia. - no urinary symptoms. Otherwise, as noted above. 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; difficulty picking up pen upper extremity strength proximally 5/5 hip flexion 5/5 bilat Psychiatric: Orientation: alert and oriented x 3 Results & Data Vital Signs (Past 12 Hours) Vital Signs Temp Pulse Pulse Resp BP Pulse Ox 10/30/18 19:48 36.9 C 58 L 18 120/59 L 97 10/30/18 16:05 36.5 C 57 L 18 139/73 96 10/30/18 16:00 66 10/30/18 10:39 36.4 C L 66 20 168/74 H 98 Laboratory Results Laboratory Results - last 24 hr 10/29/18 10/30/18 10/30/18 23:20 07:04 07:37 WBC 6.82 RBC 3.59 L Hgb 10.5 L Hct 31.8 L MCV 88.6 MCH 29.2 MCHC 33.0 RDW Std Deviation 49.7 H RDW Coeff of Tammie 15.4 H Plt Count 176 MPV 11.1 H Immature Gran % (Auto) 0.7 Neut % (Auto) 77.9 Lymph % (Auto) 15.1 [place] % (Auto) 6.3 Eos % (Auto) 0.0 Baso % (Auto) 0.0 Immature Gran # (Auto) 0.05 H Neut # (Auto) 5.31 Lymph # (Auto) 1.03 L [place] # (Auto) 0.43 Eos # (Auto) 0.00 Baso # (Auto) 0.00 Sodium Potassium Chloride Carbon Dioxide Anion Gap BUN Creatinine Est Cr Clr Drug Dosing Est GFR ( Amer) Est GFR (Non-Af Amer) BUN/Creatinine Ratio Glucose POC Glucose 190 H 125 H Fasting Glucose Estimat Average Glucose Hemoglobin A1c Calcium Magnesium Triglycerides Cholesterol LDL Cholesterol, Calc VLDL Cholesterol, Calc HDL Cholesterol Cholesterol/HDL Ratio 10/30/18 10/30/18 10/30/18 07:37 07:37 11:18 WBC RBC Hgb Hct MCV MCH MCHC RDW Std Deviation RDW Coeff of Tammie Plt Count MPV Immature Gran % (Auto) Neut % (Auto) Lymph % (Auto) [place] % (Auto) Eos % (Auto) Baso % (Auto) Immature Gran # (Auto) Neut # (Auto) Lymph # (Auto) [place] # (Auto) Eos # (Auto) Baso # (Auto) Sodium 142 Potassium 3.6 D Chloride 106 Carbon Dioxide 29 Anion Gap 7.0 BUN 10 Creatinine 0.74 Est Cr Clr Drug Dosing 43.5 Est GFR ( Amer) 86.8 Est GFR (Non-Af Amer) 74.9 BUN/Creatinine Ratio 13.8 Glucose 109 H POC Glucose 212 H Fasting Glucose 109 H Estimat Average Glucose 131 Hemoglobin A1c 6.2 H Calcium 7.3 L Magnesium 1.0 L Triglycerides 81 Cholesterol 134 LDL Cholesterol, Calc 55 VLDL Cholesterol, Calc 16 HDL Cholesterol 63 Cholesterol/HDL Ratio 2 10/30/18 10/30/18 16:14 20:47 WBC RBC Hgb Hct MCV MCH MCHC RDW Std Deviation RDW Coeff of Tammie Plt Count MPV Immature Gran % (Auto) Neut % (Auto) Lymph % (Auto) [place] % (Auto) Eos % (Auto) Baso % (Auto) Immature Gran # (Auto) Neut # (Auto) Lymph # (Auto) [place] # (Auto) Eos # (Auto) Baso # (Auto) Sodium Potassium Chloride Carbon Dioxide Anion Gap BUN Creatinine Est Cr Clr Drug Dosing Est GFR ( Amer) Est GFR (Non-Af Amer) BUN/Creatinine Ratio Glucose POC Glucose 280 H 250 H Fasting Glucose Estimat Average Glucose Hemoglobin A1c Calcium Magnesium Triglycerides Cholesterol LDL Cholesterol, Calc VLDL Cholesterol, Calc HDL Cholesterol Cholesterol/HDL Ratio (1) HTN (hypertension) Hypertension type: unspecified Qualified Code(s): I10 - Essential (primary) hypertension (2) Type 2 diabetes mellitus Diabetes mellitus fpc insulin use: without fpc use (3) Hypothyroidism Hypothyroidism type: unspecified Qualified Code(s): E03.9 - Hypothyroidism, unspecified
[2018-10-30] MEDS ORDERED: INSULIN GLARGINE SOLOSTAR 100 UNITS/ML 3 ML PEN SC ONE (21:50)
[2018-10-31 03:28] LABS: Basophils # (auto) 0.01 K/uL (0-0.2); Basophils % (auto) 0.1 %; Eosinophils # (auto) 0.06 K/uL (0-0.5); Eosinophils % (auto) 0.7 %; Hematocrit (blood only) 32.3 % (37-47); Hemoglobin 10.4 g/dL (12.0-16.0); Immature Granulocytes # (auto) 0.08 K/uL (0.00-0.02); Immature Granulocytes % (auto) 0.9 %; Lymphocytes # (auto) 2.05 K/uL (1.2-3.4); Lymphocytes % (auto) 23.9 %; Mean Corpuscular Hemoglobin 28.9 pg (25-34); Mean Corpuscular Hgb Conc 32.2 g/dL (32-36); Mean Corpuscular Volume 89.7 fL (80-100); Mean Platelet Volume 10.9 fL (7.4-10.4); Monocytes # (auto) 0.76 K/uL (0.11-0.59); Monocytes % (auto) 8.9 %; Neutrophils # (auto) 5.61 K/uL (1.4-6.5); Neutrophils % (auto) 65.5 %; Platelet Count 180 K/uL (130-400); RDW Coefficient of Variation 15.5 % (11.5-14.5); RDW Standard Deviation 50.7 fL (36.4-46.3); White Blood Count 8.57 K/uL (4.8-10.8)
[2018-10-31 03:50] LABS: Calcium 7.1 mg/dl (8.5-10.1); Creatinine Clr Calc Pharmacy 46.6 ml/min; Est GFR (African American) 93.3; Est GFR (Non-African American) 80.5; Magnesium 1.4 mg/dl (1.8-2.4); Potassium 3.6 mmol/L (3.5-5.1)
[2018-10-31 03:51] LABS: Phosphorus 2.7 mg/dl (2.5-4.9)
[2018-10-31] MEDS ORDERED: POTASSIUM CHLORIDE 10 MEQ TABCR PO STA (05:18)
[2018-10-31] MEDS: MAGNESIUM SULFATE / D5W 1 GM/100 ML BAG IV SCH ×2 (05:37→07:47)
[2018-10-31] MEDS: LEVOTHYROXINE SODIUM 75 MCG TABLET PO SCH (05:38)
[2018-10-31] MEDS: CARBOHYDRATES FOR HYPOGLYCEMIA PO PRN ×2 (07:35→07:50)
[2018-10-31] MEDS: MAGNESIUM OXIDE 400 MG TAB PO SCH ×3 (07:50→21:16)
[2018-10-31] MEDS: DIPYRIDAMOLE/ASPIRIN CAP PO SCH ×2 (07:50→21:16)
[2018-10-31] MEDS: predniSONE 2.5 MG TAB PO SCH (07:51)
[2018-10-31] MEDS: predniSONE 10 MG TABLET PO SCH (07:51)
[2018-10-31] MEDS: ASPIRIN 81 MG ECTAB PO SCH (07:52)
[2018-10-31] MEDS ORDERED: INSULIN GLARGINE SOLOSTAR 100 UNITS/ML 3 ML PEN SC SCH (09:00)
[2018-10-31] MEDS: INSULIN ASPART 100 UNITS/ML 3 ML PEN SC SCH ×4 (09:43→21:17)
--- NOTE | 2018-10-31 10:20 | Hospitalist Progress Note ---
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 Transferred to [facility]. Biopsy there reportedly showed giant cell arteritis; patient has been on taperin g dose of prednisone. Presented to ED with new onset weakness of left hand. CT without contrast showed age-related involutional changes, small vessel ischemic disease, no acute findings. CT angiogram of cervical and intracranial vessels showed complete occlusion of the distal M1 segment of the right MCA (unchanged compared to July), opacification of peripheral branches of right MCA via collateral flow, mild stenosis within the M1 segment of the left MCA as before, complete occlusion of the left vertebral artery as noted before, asymmetric volume loss and diminished attenuation throughout the right MCA territory thought to be related to previous ischemic event, subtle loss of browne-white matter differentiation within the right parietal lobe possibly representing superimposed acute to subacute ischemia, no hemorrhage. She was felt not to be a candidate for thrombolytic therapy or neurovascular intervention because she awoke with symptoms and her neuro deficits were not severe by the time she presented to the ED. 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 Neurology consulted. Antiplatelet therapy with Aggrenox + additional 81 mg aspirin recommended. Laminar necrosis can be associated with hypotension, hypoxia, prolonged / severe hypoglycemia. Best to allow permissive hypertension. Lisinopril discontinued. May have had arrhythmia secondary to electrolyte abnormalities. No apparent hypoglycemic episodes prior to neuro event. ESR was only 4, so it appeared that neuro symptoms were not due to flare of giant cell arteritis. PT/OT. (2) Giant cell arteritis: Diagnosed with giant cell arteritis at [facility] in July 2018 in the setting of right MCA stroke. Patient has been on a tapering dose of prednisone, currently down to 12.5 mg daily. ESR 4. Continue prednisone taper per PCP. (3) HTN (hypertension): Allow permissive hypertension in light of cerebrovascular disease and apparent new event. (4) Hypokalemia: Serum potassium at time of admission 3.0. Received replacement. Potassium today = 3.6. Discharge on supplemental KCl. Follow. (5) Hypomagnesemia: Serum magnesium 0.4 at time of admission. Received IV replacement. Magnesium today = 1.4. Started Mg oxide 400 mg TID. Patient has been taking PPI (lansoprazole); PPI's have been associated with hypomagnesemia. DC PPI. Follow. (6) Hypocalcemia: Serum calcium at time of admission was 7.2 with an albumin of 2.9 and a calculated corrected calcium of 8.4. Ionized calcium slightly low at 1.0. Discharge on calcium supplementation + vitamin D. (7) CKD (chronic kidney disease) stage 3, GFR 30-59 ml/min: History of chronic kidney disease stage III. Serum creatinine today = 0.69. Follow. (8) Type 2 diabetes mellitus: Diabetes mellitus type 2, usually managed with metformin and NovoLog sliding scale. Hemoglobin A1c 6.2. Holding metformin during hospital stay. Blood sugars fluctuating- got extra prednisone day of admission. Titrate insulin coverage as necessary. Ongoing outpatient management per PCP. (9) Dyslipidemia: LDL-C = 55. Continue high intensity lipid-lowering therapy with atorvastatin 80 mg daily. (10) Hypothyroidism: Continue levothyroxine. (11) Severe malnutrition: Patient has been experiencing weight loss (10-12 lbs) associated with anorexia. Wt is now 50 kg with BMI of 21. Albumin low. Has electrolyte abnormalities. Seen in consultation by brake shoe rebuilder. Deemed to have severe malnutrition. Received recommendations for diet and nutritional supplementation. (12) Nonsustained ventricular tachycardia: Presented with hypokalemia and profound hypomagnesemia. 2 runs of nonsustained VT during the night, longest run was 14 beats. Possible that neuro symptoms were precipitated by arrhythmia. Correct electrolyte abnormalities as discussed above. Best not to start beta erin because of need to maintain adequate BP for cerebral perfusion. Continue cardiac monitoring. (13) DVT prophylaxis: SQ enoxaparin. Ambulate. (14) Discharge planning issues: Anticipated discharge to home; patient feels that she will not need PT / OT. Family Medicine follow-up with Dr. Rider. Neurology follow-up with Melina Paige PA-C. Subjective Recheck for multiple problems. Patient seen in their room around 1000. Family visiting. Left hand weakness improved, less difficulty picking up objects. No headache. No visual changes. No speech abnormalities. No weakness of lower extremities. No difficulty with gait. Telemetry data reviewed. 2 runs of nonsustained VT during the night, asymptomatic. Longest run was 14 beats. Review of Systems: Constitutional- no fever. Cardiac- no chest pain. Pulmonary- no cough or SOB. GI- no nausea, vomiting, diarrhea, melena, hematochezia. - no urinary symptoms. Otherwise, as noted above. Physical Exam Constitutional: no acute distress Respiratory: no respiratory distress Auscultation: lungs clear to auscultation bilaterally Cardiovascular: Rate/Rhythm: regular rate and regular rhythm Heart Sounds: no gallop, no murmur and no cardiac rub Vessels: no JVD Extremities: no calf tenderness and no edema Gastrointestinal (Abdomen): normal bowel sounds, soft, nontender, no hepatosplenomegaly Skin: no rashes, warm and dry Neurologic: PERRL, EOMI no facial palsy no dysarthria or aphasia mild difficulty picking up pen with left hand upper extremity strength proximally 5/5 hip flexion 5/5 bilat Psychiatric: Orientation: alert and oriented x 3 Results & Data Vital Signs (Past 12 Hours) Vital Signs Temp Pulse Pulse Resp BP Pulse Ox 10/31/18 08:12 36.3 C L 53 L 17 154/64 H 99 10/31/18 04:00 36.5 C 54 L 14 151/86 H 97 10/30/18 23:33 36.9 C 56 L 16 123/74 95 10/30/18 23:00 58 L Laboratory Results Laboratory Results - last 24 hr 10/30/18 10/30/18 10/30/18 11:18 16:14 20:47 WBC RBC Hgb Hct MCV MCH MCHC RDW Std Deviation RDW Coeff of Tammie Plt Count MPV Immature Gran % (Auto) Neut % (Auto) Lymph % (Auto) [place] % (Auto) Eos % (Auto) Baso % (Auto) Immature Gran # (Auto) Neut # (Auto) Lymph # (Auto) [place] # (Auto) Eos # (Auto) Baso # (Auto) Sodium Potassium Chloride Carbon Dioxide Anion Gap BUN Creatinine Est Cr Clr Drug Dosing Est GFR ( Amer) Est GFR (Non-Af Amer) BUN/Creatinine Ratio Glucose POC Glucose 212 H 280 H 250 H Fasting Glucose Calcium Ionized Calcium Phosphorus Magnesium 10/31/18 10/31/18 10/31/18 03:06 03:06 03:06 WBC 8.57 RBC 3.60 L Hgb 10.4 L Hct 32.3 L MCV 89.7 MCH 28.9 MCHC 32.2 RDW Std Deviation 50.7 H RDW Coeff of Tammie 15.5 H Plt Count 180 MPV 10.9 H Immature Gran % (Auto) 0.9 Neut % (Auto) 65.5 Lymph % (Auto) 23.9 [place] % (Auto) 8.9 Eos % (Auto) 0.7 Baso % (Auto) 0.1 Immature Gran # (Auto) 0.08 H Neut # (Auto) 5.61 Lymph # (Auto) 2.05 [place] # (Auto) 0.76 H Eos # (Auto) 0.06 Baso # (Auto) 0.01 Sodium 144 Potassium 3.6 Chloride 108 H Carbon Dioxide 33 H Anion Gap 3.0 BUN 13 Creatinine 0.69 Est Cr Clr Drug Dosing 46.6 Est GFR ( Amer) 93.3 Est GFR (Non-Af Amer) 80.5 BUN/Creatinine Ratio Cancelled Glucose Cancelled POC Glucose Fasting Glucose 100 H Calcium 7.1 L Ionized Calcium 1.00 L Phosphorus 2.7 Magnesium 1.4 L 10/31/18 10/31/18 10/31/18 07:30 07:32 07:50 WBC RBC Hgb Hct MCV MCH MCHC RDW Std Deviation RDW Coeff of Tammie Plt Count MPV Immature Gran % (Auto) Neut % (Auto) Lymph % (Auto) [place] % (Auto) Eos % (Auto) Baso % (Auto) Immature Gran # (Auto) Neut # (Auto) Lymph # (Auto) [place] # (Auto) Eos # (Auto) Baso # (Auto) Sodium Potassium Chloride Carbon Dioxide Anion Gap BUN Creatinine Est Cr Clr Drug Dosing Est GFR ( Amer) Est GFR (Non-Af Amer) BUN/Creatinine Ratio Glucose POC Glucose 66 L* 64 L* 65 L* Fasting Glucose Calcium Ionized Calcium Phosphorus Magnesium 10/31/18 08:08 WBC RBC Hgb Hct MCV MCH MCHC RDW Std Deviation RDW Coeff of Tammie Plt Count MPV Immature Gran % (Auto) Neut % (Auto) Lymph % (Auto) [place] % (Auto) Eos % (Auto) Baso % (Auto) Immature Gran # (Auto) Neut # (Auto) Lymph # (Auto) [place] # (Auto) Eos # (Auto) Baso # (Auto) Sodium Potassium Chloride Carbon Dioxide Anion Gap BUN Creatinine Est Cr Clr Drug Dosing Est GFR ( Amer) Est GFR (Non-Af Amer) BUN/Creatinine Ratio Glucose POC Glucose 95 Fasting Glucose Calcium Ionized Calcium Phosphorus Magnesium (1) HTN (hypertension) Hypertension type: unspecified Qualified Code(s): I10 - Essential (primary) hypertension (2) Type 2 diabetes mellitus Diabetes mellitus senior living insulin use: without senior living use (3) Hypothyroidism Hypothyroidism type: unspecified Qualified Code(s): E03.9 - Hypothyroidism, unspecified
--- NOTE | 2018-10-31 13:29 | Neurology Progress Note ---
Date of Service October 31, 2018 Assessment & Plan (1) Weakness of left hand: 1. MRI brain- laminar necrosis R MCA territory/ right posterior parietal acute/subacute ischemia 2. CTA head/neck- unchanged from previous study 3. Temporal arteritis = biopsy done at [facility] [place] and started on steroids currently on a wean directed by PCP 4. continue aggrenox 1 cap BID - switched from plavix due to plt therapy failure 5. PT/OT speech for discharge needs 6. added aspirin 81 mg to medications- outpatient verify now labs could be done to r/o aspirin and plavix failure 7. would avoid hypotension 8. optimize DM, HLD LDL<70 follow up in neurology 4-6 weeks with Melina Paige PAC schedule Supervising Physician Co-Signing Physician Notes I have seen and discussed above patient with Dr Melina Pathak, neurology. Pt seen and discussed. No headache, little if any L hand weakness. Imp extension of R MCA infarct, query unrecognized hypotension with watershed? Aggrenox with addition of 81 mg asa. If recurrent sx pt will need cerebral angiography to eval for hot pipe gauger vasculitis. If pt following with [place] [facility], may follow-up with them, otherwise follow-up with our dept. Will sign off. IRASEMA Pathak MD Yair Rodriguez is a 83 year old woman with a PMH DM 2, TIA in 2018, CVA in July 2018, breast cancer 2015 status post left breast lumpectomy, hypertension who presented to the ER with left hand weakness on waking up this morning. She had no symptoms prior to going to bed yesterday night and woke with poor sensation in her hand and difficulty coordinating movements with the hands such as picking up objects or dressing herself. At baseline, patient ambulates by herself without aid and able to perform most of her ADLs independently. Uses hearing aid for chronic hearing deficit. 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 She reported being diagnosed of GCA and started on prednisone, She was also switched from plavix to aggrenox for a report plavix failure. She is doing better today. She is able to pick things up with her left hand and is working on fine motor exercises. denies CP, SOB, abdominal pain, slurred speech, vision issues, bowel or bladder issues, falls, swallowing issues. Physical Exam Physical Exam: Gen: alert NAD sitting bedside lungs CTA CV RRR left hand job coaching 4+/5, fine motor able to finger to thumb opposition intact Results & Data Vital Signs (Past 12 Hours) Vital Signs Temp Pulse Pulse Resp BP Pulse Ox 10/31/18 11:17 36.2 C L 63 18 132/72 95 10/31/18 08:12 36.3 C L 53 L 17 154/64 H 99 10/31/18 08:00 61 10/31/18 04:00 36.5 C 54 L 14 151/86 H 97 Laboratory Results Abnormal lab results 10/30/18 10/30/18 10/31/18 Range/Units 16:14 20:47 03:06 RBC (4.2-5.4) M/uL Hgb (12.0-16.0) g/dL Hct (37-47) % RDW Std Deviation (36.4-46.3) fL RDW Coeff of Tammie (11.5-14.5) % MPV (7.4-10.4) fL Immature Gran # (Auto) (0.00-0.02) K/uL [place] # (Auto) (0.11-0.59) K/uL Chloride (98-107) mmol/L Carbon Dioxide (21-32) mmol/L POC Glucose 280 H 250 H (70-99) Fasting Glucose (70-99) mg/dl Calcium (8.5-10.1) mg/dl Ionized Calcium 1.00 L (1.12-1.32) mmol/L Magnesium (1.8-2.4) mg/dl 10/31/18 10/31/18 10/31/18 Range/Units 03:06 03:06 07:30 RBC 3.60 L (4.2-5.4) M/uL Hgb 10.4 L (12.0-16.0) g/dL Hct 32.3 L (37-47) % RDW Std Deviation 50.7 H (36.4-46.3) fL RDW Coeff of Tammie 15.5 H (11.5-14.5) % MPV 10.9 H (7.4-10.4) fL Immature Gran # (Auto) 0.08 H (0.00-0.02) K/uL [place] # (Auto) 0.76 H (0.11-0.59) K/uL Chloride 108 H (98-107) mmol/L Carbon Dioxide 33 H (21-32) mmol/L POC Glucose 66 L* (70-99) Fasting Glucose 100 H (70-99) mg/dl Calcium 7.1 L (8.5-10.1) mg/dl Ionized Calcium (1.12-1.32) mmol/L Magnesium 1.4 L (1.8-2.4) mg/dl 10/31/18 10/31/18 10/31/18 Range/Units 07:32 07:50 11:32 RBC (4.2-5.4) M/uL Hgb (12.0-16.0) g/dL Hct (37-47) % RDW Std Deviation (36.4-46.3) fL RDW Coeff of Tammie (11.5-14.5) % MPV (7.4-10.4) fL Immature Gran # (Auto) (0.00-0.02) K/uL [place] # (Auto) (0.11-0.59) K/uL Chloride (98-107) mmol/L Carbon Dioxide (21-32) mmol/L POC Glucose 64 L* 65 L* 272 H (70-99) Fasting Glucose (70-99) mg/dl Calcium (8.5-10.1) mg/dl Ionized Calcium (1.12-1.32) mmol/L Magnesium (1.8-2.4) mg/dl Diagnostic Findings no new imaging
[2018-10-31] MEDS: ENOXAPARIN INJ 40 MG/0.4 ML SYR SC SCH (13:35)
[2018-10-31] MEDS: ATORVASTATIN 40 MG TAB PO SCH (21:16)
[2018-10-31] MEDS ORDERED: LANTUS PER UNIT CHARGE SC ONE (21:24)
[2018-11-01] MEDS: LEVOTHYROXINE SODIUM 75 MCG TABLET PO SCH (06:35)
[2018-11-01 07:42] LABS: Basophils # (auto) 0.01 K/uL (0-0.2); Basophils % (auto) 0.1 %; Eosinophils # (auto) 0.05 K/uL (0-0.5); Eosinophils % (auto) 0.6 %; Hematocrit (blood only) 31.8 % (37-47); Immature Granulocytes # (auto) 0.06 K/uL (0.00-0.02); Immature Granulocytes % (auto) 0.8 %; Lymphocytes # (auto) 2.24 K/uL (1.2-3.4); Mean Corpuscular Hemoglobin 28.5 pg (25-34); Mean Corpuscular Hgb Conc 31.4 g/dL (32-36); Mean Corpuscular Volume 90.6 fL (80-100); Mean Platelet Volume 11.4 fL (7.4-10.4); Monocytes # (auto) 0.72 K/uL (0.11-0.59); Neutrophils # (auto) 4.92 K/uL (1.4-6.5); Neutrophils % (auto) 61.5 %; Platelet Count 167 K/uL (130-400); RDW Coefficient of Variation 15.6 % (11.5-14.5); RDW Standard Deviation 51.6 fL (36.4-46.3); Red Blood Count 3.51 M/uL (4.2-5.4)
[2018-11-01] MEDS: INSULIN ASPART 100 UNITS/ML 3 ML PEN SC SCH ×2 (07:54→12:00)
[2018-11-01 08:17] LABS: BUN Creatinine Ratio 21.3 (10-20); Calcium 8.1 mg/dl (8.5-10.1); Creatinine Clr Calc Pharmacy 51.9 ml/min; Est GFR (African American) 96.6; Est GFR (Non-African American) 83.4; Potassium 4.4 mmol/L (3.5-5.1)
[2018-11-01] MEDS: DIPYRIDAMOLE/ASPIRIN CAP PO SCH (08:56)
[2018-11-01] MEDS: ASPIRIN 81 MG ECTAB PO SCH (08:57)
[2018-11-01] MEDS: MAGNESIUM OXIDE 400 MG TAB PO SCH ×2 (08:57→13:59)
[2018-11-01] MEDS: predniSONE 2.5 MG TAB PO SCH (08:57)
[2018-11-01] MEDS: predniSONE 10 MG TABLET PO SCH (08:57)
[2018-11-01] MEDS: ENOXAPARIN INJ 40 MG/0.4 ML SYR SC SCH (13:59)
[2018-11-01] MEDS ORDERED: STROKE PATIENT DISCHARGE STA (15:53)
--- NOTE | 2018-11-01 16:01 | Discharge Summary ---
Date of Service November 01, 2018 Admission HPI Per Admitting Provider 83 year old woman with a history of diabetes mellitus type 2, TIA in 2018, CVA in July 2018, breast cancer 2015 status post left breast lumpectomy, hypertension who presented to the ER with left hand weakness on waking up this morning. Patient reported that she had no symptoms prior to going to bed yesterday night. Reports that she has poor sensation in the hand with difficulty coordinating movements with the hands such as picking up objects or dressing herself. Denied any weakness or abnormalities of right extremity or lower extremities. Denied any dysarthria, facial droop, visual changes, change in smell or gait changes. Denied any loss of consciousness, seizures, headaches. At baseline, patient ambulates by herself without aid and able to perform most of her ADLs independently. Uses hearing aid for chronic hearing deficit. 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 Patient was transferred to another facility. She reported being diagnosed of GCA and started on prednisone and aggrenox. Her Primary care physician has been monitoring ESR and tapering prednisone per patient. Does not smoke cigarettes No illicit drug use No alcohol use On presentation to ER, CT Head did not show any hemorrhage, mass effect or acute ischemia. Labs show severe hypomagnesemia. At the time of evaluation, patient reports slight improvement in left hand abnormalities. Admission Exam Per Admitting Provider General: Well nourished, well hydrated , average body habitus, no acute distress and not ill appearing Eyes: PERRL, conjunctivae normal, not pale, anicteric sclerae, EOM intact bilaterally ENMT: External ear and nose normal, oropharynx normal, Not wearing her hearing aides but about to participate in conversation at ambient tones Neck: Normal visual inspection, no tracheal deviation, no swelling noted Respiratory: Normal respiratory effort, no respiratory distress, lungs clear to auscultation, no crackles and no wheezes Cardiovascular: Pulse is RRR. Heart Sounds: normal S1 and normal S2; no murmurs. Vessels: normal peripheral pulses Extremities: no pedal edema Chest (Breasts): Chest: normal inspection of chest Gastrointestinal (Abdomen): Abdomen is not distended, soft, non-tender to palpation, no palpable hepatosplenomegaly, normal bowel sounds Musculoskeletal: No cyanosis or clubbing, Skin: No rash noted on gross inspection, No ulcers noted Neurologic: Alert and oriented x 3, Power is 4/5 in left hand muscles and normal in other extremities, reduced sensation on dorsum of left hand, CN II, III, IV, V, , VII, VIII, IX, XI,XII grossly intact Psychiatric: Alert and oriented x 3, euthymic affect, no depressed affect Lymphatic: No cervical lymphadenopathy Principal Diagnosis Left hand weakness, secondary to right posterior parietal acute/subacute ischemia Discharge Exam Constitutional: no acute distress Respiratory: no respiratory distress Auscultation: lungs clear to auscultation bilaterally Cardiovascular: Rate/Rhythm: regular rate and regular rhythm Heart Sounds: no gallop, no murmur and no cardiac rub Vessels: no JVD Extremities: no calf tenderness and no edema Gastrointestinal (Abdomen): normal bowel sounds, soft, nontender, no hepatosplenomegaly Skin: no rashes, warm and dry Neurologic: PERRL, EOMI no facial palsy no dysarthria or aphasia mild difficulty picking up pen with left hand upper extremity strength proximally 5/5 hip flexion 5/5 bilat Psychiatric: Orientation: alert and oriented x 3 Discharge Data Allergies Allergy/AdvReac Type Severity Reaction Status Date / Time melon Allergy Severe Difficulty Verified 10/29/18 10:44 Breathing Consultations 10/29/18 10:27 ED Decision to Admit Stat 10/29/18 13:16 Consult Case Management - Discharge Planning Routine Consult Neurology Routine Ordered Studies 10/29/18 09:26 CT head/brain wo con Stat 10/29/18 13:16 CT angio head w con Stat IMPRESSION: 1. 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 2. The peripheral branches of the right MCA are opacified, likely via collateral flow. 3. Mild stenosis is again seen within the M1 segment of the left middle cerebral artery. 4. The internal carotid arteries in the neck as well as the right vertebral artery are widely patent. 5. 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 6. There is asymmetric volume loss and diminished attenuation throughout the right MCA territory, likely related to previous infarct. Canales-white matter differentiation is largely maintained. 7. There is subtle loss of canales-white matter differentiation within the right parietal lobe, likely representing superimposed acute to subacute ischemia. This was better characterized on today's MRI. 8. No hemorrhage or mass effect is identified. CT angio neck with con Stat IMPRESSION: 1. 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 2. The peripheral branches of the right MCA are opacified, likely via collateral flow. 3. Mild stenosis is again seen within the M1 segment of the left middle cerebral artery. 4. The internal carotid arteries in the neck as well as the right vertebral artery are widely patent. 5. 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 6. There is asymmetric volume loss and diminished attenuation throughout the right MCA territory, likely related to previous infarct. Canales-white matter differentiation is largely maintained. 7. There is subtle loss of canales-white matter differentiation within the right parietal lobe, likely representing superimposed acute to subacute ischemia. This was better characterized on today's MRI. 8. No hemorrhage or mass effect is identified. MRI OF THE BRAIN COMBO CLINICAL HISTORY: Strokelike symptoms. Dizziness. COMPARISON STUDY: CT of the brain dated 10/29/2018. MRI of the brain dated 12/16/2017. TECHNIQUE: MRI of the brain was performed utilizing various T1 and T2-weighted sequences in the axial, sagittal, and coronal planes. Contrast-enhanced sequences were acquired following the administration of 5 cc of Gadavist. FINDINGS: Brain parenchyma: There is age-related involutional change noting advanced subcortical and periventricular microangiopathic disease. There is no hemorrhage or mass effect. There is significant T1 hyperintense cortical thickening seen throughout the right MCA territory distribution. This measures up to 4 mm in thickness, and also shows faint restricted diffusion throughout this region that is greatest in the posterior parietal region. The appearance is typical for laminar necrosis, and there is likely a component of acute subacute ischemia within this region. No additional foci of restricted diffusion are identified. No enhancing mass lesion is identified on the postcontrast images. No extra- axial fluid collection is seen. The cerebellar tonsils are normal in configuration. Ventricles, sulci, and cisterns: Prominent secondary to involutional change. Pituitary and sella: Unremarkable. Intracranial vasculature: Normal flow voids are maintained at the skull base. Orbits: The bony orbits are grossly intact. Orbital contents are normal in appearance noting bilateral ocular lens implants. Sinuses and mastoids: Clear. Calvarium: Unremarkable. Cervical cord: Partially visualized cervical spinal cord is normal in morphology and signal intensity. IMPRESSION: 1. 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 2. There is a faint restricted diffusion throughout the laminar necrosis, greatest in the right posterior parietal region which may represent a component of superimposed acute to subacute ischemia. 3. There is no hemorrhage or mass effect. 4. No enhancing lesion is identified. CLINICAL HISTORY: Strokelike symptoms. Dizziness. COMPARISON STUDY: CT of the brain dated 10/29/2018. MRI of the brain dated 12/16/2017. TECHNIQUE: MRI of the brain was performed utilizing various T1 and T2-weighted sequences in the axial, sagittal, and coronal planes. Contrast-enhanced sequences were acquired following the administration of 5 cc of Gadavist. FINDINGS: Brain parenchyma: There is age-related involutional change noting advanced subcortical and periventricular microangiopathic disease. There is no hemorrhage or mass effect. There is significant T1 hyperintense cortical thickening seen throughout the right MCA territory distribution. This measures up to 4 mm in thickness, and also shows faint restricted diffusion throughout this region that is greatest in the posterior parietal region. The appearance is typical for laminar necrosis, and there is likely a component of acute subacute ischemia within this region. No additional foci of restricted diffusion are identified. No enhancing mass lesion is identified on the postcontrast images. No extra- axial fluid collection is seen. The cerebellar tonsils are normal in configuration. Ventricles, sulci, and cisterns: Prominent secondary to involutional change. Pituitary and sella: Unremarkable. Intracranial vasculature: Normal flow voids are maintained at the skull base. Orbits: The bony orbits are grossly intact. Orbital contents are normal in appearance noting bilateral ocular lens implants. Sinuses and mastoids: Clear. Calvarium: Unremarkable. Cervical cord: Partially visualized cervical spinal cord is normal in morphology and signal intensity. IMPRESSION: 1. 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 2. There is a faint restricted diffusion throughout the laminar necrosis, greatest in the right posterior parietal region which may represent a component of superimposed acute to subacute ischemia. 3. There is no hemorrhage or mass effect. 4. No enhancing lesion is identified. Hospital Course (1) Stroke: per Dr. 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 Transferred to [facility]. Biopsy there reportedly showed giant cell arteritis; patient has been on tapering dose of prednisone. Presented to ED with new onset weakness of left hand. She was felt not to be a candidate for thrombolytic therapy or neurovascular intervention because she awoke with symptoms and her neuro deficits were not severe by the time she presented to the ED. 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 Neurology consulted: NAE Stone, Dr. Melina Pathak recommended additional 81 mg of aspirin to patient's usual Aggrenox Best to allow permissive hypertension. Lisinopril discontinued. May have had arrhythmia secondary to electrolyte abnormalities. Management noted below. ESR was only 4, so it appeared that neuro symptoms were not due to flare of giant cell arteritis. Continue occupational therapy 2-3 times a week as an outpatient. (2) Giant cell arteritis: Per Dr. Moreira's notes: Diagnosed with giant cell arteritis at [facility] in July 2018 in the setting of right MCA stroke. Patient has been on a tapering dose of prednisone, currently down to 12.5 mg daily. ESR 4. Continue prednisone taper per PCP. (3) HTN (hypertension): Usual lisinopril 2.5 mg p.o. daily discontinued unless blood pressure persistently above 160 at home. Patient reports she takes her blood pressure daily. Monitor and titrate lisinopril as outpatient. (4) Hypokalemia: Serum potassium at time of admission 3.0. Received replacement. Repeat potassium 4.4 Discharge on potassium 20 meq p.o. daily Repeat BMP on follow-up this coming Tuesday. (5) Hypomagnesemia: Serum magnesium 0.4 at time of admission. Received IV replacement. Magnesium = 1.4. Started Mg oxide 400 mg TID. Patient has been taking PPI (lansoprazole); PPI's have been associated with hypomagnesemia. DC PPI. Discharge on magnesium oxide 400 mg p.o. twice daily Repeat magnesium on follow-up with PCP this coming Tuesday (6) Hypocalcemia: Serum calcium at time of admission was 7.2 with an albumin of 2.9 and a calculated corrected calcium of 8.4. Ionized calcium slightly low at 1.0. Patient advised to increase calcium plus vitamin D supplement to twice a day for a total of 2000 mg of calcium per day. Repeat calcium level on follow-up with PCP this Tuesday (7) CKD (chronic kidney disease) stage 3, GFR 30-59 ml/min: Stable (8) Type 2 diabetes mellitus: Diabetes mellitus type 2, usually managed with metformin and NovoLog sliding scale. Hemoglobin A1c 6.2. Resume usual metformin and insulin. (9) Dyslipidemia: LDL-C = 55. Continue high intensity lipid-lowering therapy with atorvastatin 80 mg daily. (10) Hypothyroidism: Continue levothyroxine. (11) Severe malnutrition: Per Dr. Moreira's notes: Patient has been experiencing weight loss (10-12 lbs) associated with anorexia. Wt is now 50 kg with BMI of 21. Albumin low. Has electrolyte abnormalities. Seen in consultation by binding folder machine. Deemed to have severe malnutrition. Received recommendations for diet and nutritional supplementation. (12) Nonsustained ventricular tachycardia: Per Dr. Moreira's notes: Presented with hypokalemia and profound hypomagnesemia. 2 runs of nonsustained VT noted during admission, longest run was 14 beats. Possible that neuro symptoms were precipitated by arrhythmia. Corrected electrolyte abnormalities as discussed above. Best not to start beta erin because of need to maintain adequate BP for cerebral perfusion. Consider outpatient cardiac monitoring (13) DVT prophylaxis: SQ enoxaparin. Ambulate. (14) Discharge planning issues: Discharge to home, outpatient occupational therapy Follow-up with primary care physician this Saturday, November 03, 2018 at 12:45 PM, Dr. Parker. Neurology follow-up with Melina Paige PA-C in 4 to 6 weeks. Total Time Total Time Spent Total Time Spent (In Minutes): 55 minutes Discharge Plan Discharge Items Patient Disposition: Home - Self-Care Reason For Visit: l hand weakness Discharge Diagnosis: LEFT HAND WEAKNESS, LIKELY ACUTE STROKE Condition on Discharge: Good Activity: As commented below Activity Comment: RESUME ACTIVITY GRADUALLY TOLERATED Lifting: Wait until after follow-up appointment Exercise/Sports: Wait until after follow-up appointment Driving/Machine Use: NO DRIVING Non-emergency contact: Primary Care Provider Call non-emergency contact if: you have any medication questions and you have a fever Diet: Carb Consistent or DM2 and Heart Healthy Addtl Attending Provider Instructions: FOLLOW UP WITH DR. MILTON PARKER (ASSOCIATE OF DR. JAVIER) on Saturday, November 03, 2018 at 12:45 PM. Follow-up with [facility] neurologist NAE Paige in 4 to 6 weeks. Please call their clinic for an appointment. . For now, stop taking lisinopril 2.5 mg p.o. daily unless blood pressure top number is above 1602 readings. Your new medications medications include aspirin 81 mg p.o. daily, potassium 20 meq daily and magnesium 400 mg twice a day. Always take Aspirin with a full stomach. Increase your calcium supplement with Vitamin D to twice a day (total of 2,000mg of Calcium per day). Continue outpatient occupational therapy for 2-3 times a week. Risk Factors for Stroke: You can reduce your chances of stroke by working with your medical provider to adopt a healthy lifestyle. Some specific ways to lower your chance of stroke are: If you are a smoker, now is the time to stop smoking cigarettes If you are diabetic, improve the control of your blood sugars Avoid excessive amounts of alcohol Control high blood pressure Lose weight if you are overweight Be sure to lead an active lifestyle Eat a healthy diet low in salt, cholesterol and fat You should know about other risk factors for stroke that you are unable to control. These include: Age 55 years or older Male gender Certain racial groups: , or / Family History of Stroke, Mini stroke or Heart Attack Sickle Cell Disease Follow Up: It is important for you to keep your follow up appointments with your medical provider. Who to Call and When: Medical Emergencies: Call 911 immediately if you experience any of the following warning signs and symptoms of Stroke: Sudden numbness or weakness of the face, arm or leg, especially on one side of the body Sudden confusion, trouble speaking or understanding Sudden trouble seeing in one or both eyes Sudden trouble walking, dizziness, loss of balance or coordination Sudden severe headache with no cause Do not delay calling 911 if you experience any warning signs or symptoms of a stroke. Delay in seeking medical attention may affect what treatments can be given to you. Pending Studies at Discharge: Yes Studies:: Repeat blood work on follow-up with primary care physician this coming Saturday, November 03, 2018. Stand-Alone Forms: Medications to Prevent Stroke, [facility] Medications and DC Order Prescriptions: New aspirin [Ecotrin Low Strength] 81 mg Tablet,Delayed Release (Dr/Ec) 81 mg PO DAILY 30 Days Qty: 30 RF: 2 magnesium oxide 400 mg (241.3 mg magnesium) Tablet 400 mg PO BID 30 Days Qty: 60 RF: 1 potassium chloride 20 mEq tablet extended release 20 meq PO DAILY Qty: 30 RF: 2 Continued levothyroxine 75 mcg Capsule 75 mcg PO QAM RF: 0 aspirin-dipyridamole 25-200 mg capsule, ER multiphase 12 hr 1 cap PO BID RF: 0 prednisone 10 mg tablet 10 mg PO QAM RF: 0 prednisone 5 mg tablet 2.5 mg PO QAM RF: 0 Novolog Flexpen U-100 Insulin 100 unit/mL (3 mL) insulin pen subcut UD RF: 0 metformin 500 mg tablet 500 mg PO BIDM RF: 0 atorvastatin 80 mg tablet 80 mg PO HS RF: 0 Discontinued lisinopril 5 mg tablet 2.5 mg PO QAM RF: 0 lansoprazole 30 mg capsule,delayed release(DR/EC) 30 mg PO DAILY RF: 0 Discharge Orders: Discharge Order (Routine); Ordered 11/01/18 Ordered By: Taye Warner Admission Data Admit Date/Time: 10/29/18 11:35 Attending Provider: Taye Warner Admit Provider: Lulu Graves I. Primary Care Provider: Shen Javier Other Providers: Lulu Graves I. ; Melina Pathak ; Mg Moreira
--- NOTE | 2018-11-01 16:08 | Hospitalist Progress Note ---
Date of Service November 01, 2018 Assessment & Plan (1) Stroke: (1) Stroke: per Dr. 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 Transferred to [facility]. Biopsy there reportedly showed giant cell arteritis; patient has been on tapering dose of prednisone. Presented to ED with new onset weakness of left hand. She was felt not to be a candidate for thrombolytic therapy or neurovascular intervention because she awoke with symptoms and her neuro deficits were not severe by the time she presented to the ED. 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 Neurology consulted: NAE Stone, Dr. Melina Pathak recommended additional 81 mg of aspirin to patient's usual Aggrenox Best to allow permissive hypertension. Lisinopril discontinued. May have had arrhythmia secondary to electrolyte abnormalities. Management noted below. ESR was only 4, so it appeared that neuro symptoms were not due to flare of giant cell arteritis. Continue occupational therapy 2-3 times a week as an outpatient. (2) Giant cell arteritis: Per Dr. Moreira's notes: Diagnosed with giant cell arteritis at [facility] in July 2018 in the setting of right MCA stroke. Patient has been on a tapering dose of prednisone, currently down to 12.5 mg daily. ESR 4. Continue prednisone taper per PCP. (3) HTN (hypertension): Usual lisinopril 2.5 mg p.o. daily discontinued unless blood pressure persistently above 160 at home. Patient reports she takes her blood pressure daily. Monitor and titrate lisinopril as outpatient. (4) Hypokalemia: Serum potassium at time of admission 3.0. Received replacement. Repeat potassium 4.4 Discharge on potassium 20 meq p.o. daily Repeat BMP on follow-up this coming Tuesday. (5) Hypomagnesemia: Serum magnesium 0.4 at time of admission. Received IV replacement. Magnesium = 1.4. Started Mg oxide 400 mg TID. Patient has been taking PPI (lansoprazole); PPI's have been associated with hypomagnesemia. DC PPI. Discharge on magnesium oxide 400 mg p.o. twice daily Repeat magnesium on follow-up with PCP this coming Sam (6) Hypocalcemia: Serum calcium at time of admission was 7.2 with an albumin of 2.9 and a calculated corrected calcium of 8.4. Ionized calcium slightly low at 1.0. Patient advised to increase calcium plus vitamin D supplement to twice a day for a total of 2000 mg of calcium per day. Repeat calcium level on follow-up with PCP this Tuesday (7) CKD (chronic kidney disease) stage 3, GFR 30-59 ml/min: Stable (8) Type 2 diabetes mellitus: Diabetes mellitus type 2, usually managed with metformin and NovoLog sliding scale. Hemoglobin A1c 6.2. Resume usual metformin and insulin. (9) Dyslipidemia: LDL-C = 55. Continue high intensity lipid-lowering therapy with atorvastatin 80 mg daily. (10) Hypothyroidism: Continue levothyroxine. (11) Severe malnutrition: Per Dr. Moreira's notes: Patient has been experiencing weight loss (10-12 lbs) associated with anorexia. Wt is now 50 kg with BMI of 21. Albumin low. Has electrolyte abnormalities. Seen in consultation by photographic double. Deemed to have severe malnutrition. Received recommendations for diet and nutritional supplementation. (12) Nonsustained ventricular tachycardia: Per Dr. Moreira's notes: Presented with hypokalemia and profound hypomagnesemia. 2 runs of nonsustained VT noted during admission, longest run was 14 beats. Possible that neuro symptoms were precipitated by arrhythmia. Corrected electrolyte abnormalities as discussed above. Best not to start beta erin because of need to maintain adequate BP for cerebral perfusion. Consider outpatient cardiac monitoring (13) DVT prophylaxis: SQ enoxaparin. Ambulate. (14) Discharge planning issues: Discharge to home, outpatient occupational therapy Follow-up with primary care physician this Saturday, November 03, 2018 at 12:45 PM, Dr. Arias. Neurology follow-up with Melina Paige PA-C in 4 to 6 weeks. Subjective Follow-up for acute CVA Seen resting in bed, comfortable, no distress States her left hand is much better able to move her fingers, almost back to baseline Denies any other neurologic symptoms Denies chest pain, shortness of breath, palpitations, dizziness Ambulating with no problems States she is ready and comfortable for discharge today Review of Systems Review of Systems: All systems reviewed & are unremarkable except as noted in HPI & below Physical Exam Physical Exam: General- oriented x 3, not in distress, speaks in sentences with no effort or accessory muscle use Head- atraumatic Eyes- PERRL, EOMI, anicteric ENT- oropharynx clear Neck- supple, no JVD, no adenopathy, no thyromegaly; carotids +2/2, no bruits appreciated Lungs- clear to auscultation bilaterally, no rales/wheezes Heart- normal rate, regular rhythm; no murmur, no gallop, no rub appreciated Abdomen- normal bowel sounds, nondistended, soft, nontender, no masses or hepatosplenomegaly Extremities- no pretibial edema, no calf tenderness; peripheral pulses intact Neuro- alert, oriented x 3; CN 2-12 grossly intact; motor 5/5 bilaterally including left hand;sensation 100% on all extremities; no other gross focal neurologic deficits Skin- warm & dry Results & Data Vital Signs (Past 12 Hours) Vital Signs Temp Pulse Resp BP Pulse Ox 11/01/18 13:59 134/65 11/01/18 11:59 36.6 C 65 18 164/68 H 96 11/01/18 07:47 36.5 C 55 L 18 176/78 H 98 Laboratory Results Laboratory Results - last 24 hr 10/31/18 10/31/18 11/01/18 16:56 21:02 07:26 WBC 8.00 RBC 3.51 L Hgb 10.0 L Hct 31.8 L MCV 90.6 MCH 28.5 MCHC 31.4 L RDW Std Deviation 51.6 H RDW Coeff of Tammie 15.6 H Plt Count 167 MPV 11.4 H Immature Gran % (Auto) 0.8 Neut % (Auto) 61.5 Lymph % (Auto) 28.0 [place] % (Auto) 9.0 Eos % (Auto) 0.6 Baso % (Auto) 0.1 Immature Gran # (Auto) 0.06 H Neut # (Auto) 4.92 Lymph # (Auto) 2.24 [place] # (Auto) 0.72 H Eos # (Auto) 0.05 Baso # (Auto) 0.01 Sodium Potassium Chloride Carbon Dioxide Anion Gap BUN Creatinine Est Cr Clr Drug Dosing Est GFR ( Amer) Est GFR (Non-Af Amer) BUN/Creatinine Ratio Glucose POC Glucose 178 H 250 H Calcium Magnesium 11/01/18 11/01/18 11/01/18 07:26 07:28 11:18 WBC RBC Hgb Hct MCV MCH MCHC RDW Std Deviation RDW Coeff of Tammie Plt Count MPV Immature Gran % (Auto) Neut % (Auto) Lymph % (Auto) [place] % (Auto) Eos % (Auto) Baso % (Auto) Immature Gran # (Auto) Neut # (Auto) Lymph # (Auto) [place] # (Auto) Eos # (Auto) Baso # (Auto) Sodium 144 Potassium 4.4 D Chloride 110 H Carbon Dioxide 30 Anion Gap 4.0 BUN 13 Creatinine 0.62 Est Cr Clr Drug Dosing 51.9 Est GFR ( Amer) 96.6 Est GFR (Non-Af Amer) 83.4 BUN/Creatinine Ratio 21.3 H Glucose 85 POC Glucose 89 126 H Calcium 8.1 L Magnesium 2.0
--- NOTE | 2018-11-01 16:51 | Pharmacy Report ---
Pharmacist Stroke Counseling - Date of Service November 01, 2018 - Scope: Pharmacy has been consulted to provide medication discharge counseling for this patient admitted with possible acute stroke as per the Pharmacist Discharge Counseling for Stroke Patients Protocol. - Medications on Discharge: Home Medications Medication Instructions Recorded Confirmed levothyroxine 75 mcg PO QAM 12/16/17 10/29/18 atorvastatin 80 mg PO HS 07/30/18 10/29/18 metformin 500 mg PO BIDM 07/30/18 10/29/18 Novolog Flexpen U-100 Insulin 0 unit SUBCUT UD 10/29/18 10/29/18 aspirin-dipyridamole 1 cap PO BID 10/29/18 10/29/18 prednisone 2.5 mg PO QAM 10/29/18 10/29/18 prednisone 10 mg PO QAM 10/29/18 10/29/18 New Rx's Medication Instructions Recorded aspirin [Ecotrin Low Strength] 81 mg PO DAILY 30 Days #30 tab 11/01/18 magnesium oxide 400 mg PO BID 30 Days #60 tab 11/01/18 potassium chloride 20 meq PO DAILY #30 tab 11/01/18 - Action: The above medications, specifically ones for stroke treatment/prophylaxis, have been reviewed in detail with the patient and/or patient accounts receivable representative(s) prior to discharge. This includes indication, common adverse reactions, drug interactions, and medication administration. Medication counseling has been employed using the teach-back method to ensure understanding. - Outcome: The patient and/or patient accounts receivable representative(s) have demonstrated understanding of the medications. Please note, they are aware that the pharmacist will call them within 72 hours post-discharge to confirm that the appropriate medications are being taken and answer any further medication related questions the patient might have at that time. Contact information Individual to be contacted: Jennifer Pat (patient) Phone number: [phone] Best time to call: Early afternoon Additional comments: - Advised patient that aspirin and magnesium are [id number] while potassium requires a prescription - Informed patient to buy 81 mg, enteric-coated aspirin and doesn't have to be emeterio brand - Patient ensure understanding that baby aspirin will be once a day as compared to twice daily aggrenox Thank you for allowing pharmacy to be involved in the care of this patient. Please call [phone] with any additional questions
--- NOTE | 2018-11-03 13:55 | Pharmacy Report ---
Pharmacist Post D/C Phone Note - Phone Note: Date of phone call: November 03, 2018. The patient and/or patient veterans employment representative(s) were unable to be reached for a follow-up phone call within the 72 hour time frame. Discharge counseling pharmacist contact information has already been provided to the patient should questions arise. Thank you for allowing us to be involved in the care of this patient. - Home Medications: Home Medications Medication Instructions Recorded Confirmed levothyroxine 75 mcg PO QAM 12/16/17 10/29/18 atorvastatin 80 mg PO HS 07/30/18 10/29/18 metformin 500 mg PO BIDM 07/30/18 10/29/18 Novolog Flexpen U-100 Insulin 0 unit SUBCUT UD 10/29/18 10/29/18 aspirin-dipyridamole 1 cap PO BID 10/29/18 10/29/18 prednisone 2.5 mg PO QAM 10/29/18 10/29/18 prednisone 10 mg PO QAM 10/29/18 10/29/18 New Rx's Medication Instructions Recorded aspirin [Ecotrin Low Strength] 81 mg PO DAILY 30 Days #30 tab 11/01/18 magnesium oxide 400 mg PO BID 30 Days #60 tab 11/01/18 potassium chloride 20 meq PO DAILY #30 tab 11/01/18
== END 2018-11-01 17:07 | disposition home or self-care (01) | DRG 64 ==
LOC: ED 09:00 → SUATTDRO 11:35 → 2S 11:35